=== PATIENT | male | born 1990 | race Caucasian/White ===

== ENCOUNTER 2016-04-10 10:02 | Inpatient (IN) | payer OTHER ==
[~2016-04-10] VITALS: Ht 167.6 cm; Wt 63.5 kg
[~2016-04-10 10:02] MED LIST: AMOXIL500 MG PO; BACTRIM DS 8001 TAB PO; CLONAZEPAM1 M2 PO; HUMALOG MI100 UNIT/3 SC; HYDROXYZINE50 MG PO; LEVEMIR 10100 UNITS/ SC; LEVEMIR100 UNIT/1 SC; NOVOLOG100 U/ML SC; NOVOLOG100 UNIT/2 SC; PERCOCET 325 MG1 TA2 PO; PERCOCET 5-3251 EACH PO; PRILOSEC40 M1 PO; PROMETHAZINE HC25 M3 PO; ZOFRAN ODT4 M1 SL; ZOFRAN ODT4 MG PO; ZOFRAN4 M2 PO; ZOFRAN4 M2 SL
[2016-04-10 10:35] LABS: ABSOLUTE EOSINOPHIL COUNT 0 /CUMM (0.0-0.7); ABSOLUTE GRANULOCYTE CT 25.1 /CUMM (1.4-6.5); EOSINOPHIL % 0 % (0-5); HEMATOCRIT 51.5 % (42-52); MEAN CORPUSCULAR HGB 30.7 PG (27.0-31.0)
[2016-04-10 10:37] LABS: ABSOLUTE BASOPHIL COUNT 0.3 /CUMM (0.0-0.2); ABSOLUTE LYMPH COUNT 2.3 /CUMM (1.2-3.4); ABSOLUTE MONOCYTE COUNT 2.2 /CUMM (0.10-0.60); BASOPHIL % 0.9 % (0.0-2.0); MEAN CORPUSCULAR HGB CONC 33.5 G/DL (33.0-37.0); MEAN CORPUSCULAR VOLUME 91.7 FL (80.0-94.0); MEAN PLATELET VOLUME 9.8 FL (7.4-10.4); PLATELET COUNT 349 /CUMM (130-400); RED BLOOD CELL CT 5.61 /CUMM (4.70-6.10); WHITE BLOOD CELL COUNT 29.9 /CUMM (4.8-10.8)
--- NOTE | 2016-04-10 10:52 | NUR ---
PT BIBA FROM HOME WITH HIGH BLOOD SUGAR. PT HAD BLOOD SUGAR OF >500 FOR MEDIC, BLOOD SUGAR IN ER IS CURRENTLY 412 UPON ARRIVAL. PT NOTED TO BE ALERT AND ORIENTED. DENIES ANY CP. NOTED TO HAVE TACHYPNEIC BREATHING PATTER, LUNG SOUNDS APPEAR CLEAR. PLACED ON 2L O2 VIA NC FOR COMFORT. NOTED TO BE DRY HEAVING UPON ARRIVAL TO ROOM, PALE IN COLOR, SKIN COOL TO TOUCH. DR HANSON IN ROOM TO EVAL. PT ASKING TO DRINK WATER, ADVISED HE CAN HAVE ICE CHIPS/MOUTH SWABS. IV PLACED TO RT FOREARM. NS INFUSING, MEDICATED WITH ZOFRAN AND IV INSULIN (SEE MAR). PT CONTINUES TO ASK TO DRINK WATER, INFORMED HE MAY HAVE THE ICE CHIPS AT THIS TIME PER MD ORDERS.
--- NOTE | 2016-04-10 10:57 | NUR ---
PER LAB BOTH SST'S HEMOLYZED - REQUESTED FOR LAB TO COME DRAW PT ER STAFF HAS MADE MULITPLE ATTEMPTS ALREADY.
--- NOTE | 2016-04-10 11:00 | NUR ---
PT RIPPED OF NASAL CANNULA, STATED "ITS NOT DOING ANYTHING FOR ME, ITS MAKING ME WORSE." INSTRUCTED ON USE FOR THE OXYGEN, PT REFUSING IT AT THIS TIME.
--- NOTE | 2016-04-10 11:03 | NUR ---
PTS MOTHER CALLING STATING THAT HER SON CALLED HER STATING THAT WE ARE REFUSING WATER TO HIM. THIS RN SPOKE TO MOM ON PHONE, INFORMED HER THAT PER THE MD HE MAY HAVE ICE CHIPS AND MOUTH SWABS AT THIS TIME. MOM STATES SHE WILL BE ON HER WAY SOON.
--- NOTE | 2016-04-10 11:05 | NUR ---
LAB CALLED BECAUSE 2 SST HEMOLYZED, THIS MST REQUESTING FOR LAB TO COME DRAW PATIENT FOR NEW SPECIMEN.
--- NOTE | 2016-04-10 11:10 | NUR ---
LAB AT BEDSIDE.
--- NOTE | 2016-04-10 11:30 | ED GENERAL ADULT ---
History of Present Illness General Chief Complaint: General Adult Stated Complaint: BLOOD SUGAR "HIGH" Source: patient, old records, EMS Exam Limitations: clinical condition Vital Signs & Intake/Output Vital Signs & Intake/Output Vital Signs Date Time Temp Pulse Resp B/P Pulse O2 O2 Flow FiO2 Ox Delivery Rate 04/10 1302 97.0 114 24 141/79 100 Room Air 04/10 1230 100 Room Air Room Air 04/10 1210 96.8 142 36 159/78 100 Room Air 04/10 1053 100 Nasal 2.0L Cannula 04/10 1042 136 32 164/81 100 Nasal 2.0L Cannula 04/10 1007 96.7 140 20 161/106 100 Room Air Allergies Coded Allergies: dog dander (HIVES 09/16/15) Reconcile Medications Insulin NPL/Insulin Lispro (Humalog Mix 75-25 Kwikpen) 100 UNIT/ML (75-25) INSULN.PEN 30 U SC BID DIABETES (Reported) before breakfast and before dinner Methadone Hydrochloride (Methadone HCl) 10 MG TABLET 4 TAB PO TIDPRN SUBSTANCE ABUSE HX (Reported) Triage Note: PT BIBA FROM HOME WITH HIGH BLOOD SUGAR. PT HAD BLOOD SUGAR OF >500 FOR MEDIC, BLOOD SUGAR IN ER IS CURRENTLY 412 UPON ARRIVAL. PT NOTED TO BE ALERT AND ORIENTED. DENIES ANY CP. NOTED TO HAVE TACHYPNEIC BREATHING PATTER, LUNG SOUNDS APPEAR CLEAR. PLACED ON 2L O2 VIA NC FOR COMFORT. NOTED TO BE DRY HEAVING UPON ARRIVAL TO ROOM, PALE IN COLOR, SKIN COOL TO TOUCH. DR HANSON IN ROOM TO [facility]. PT ASKING TO DRINK WATER, ADVISED HE CAN HAVE ICE CHIPS/MOUTH SWABS. IV PLACED TO RT FOREARM. NS INFUSING, MEDICATED WITH ZOFRAN AND IV INSULIN (SEE MAR). PT CONTINUES TO ASK TO DRINK WATER, INFORMED HE MAY HAVE THE ICE CHIPS AT THIS TIME PER MD ORDERS. Triage Nurses Notes Reviewed? yes Onset: Just prior to arrival Duration: hour(s):, constant, continues in ED Timing: recent history Injury Environment: home Severity: severe No Modifying Factors: none Associated Symptoms: nausea vomiting HPI: Several hours prior to admission patient had elevated blood sugar readings followed with nausea vomiting and rapid breathing confusion. He denies fever chills chest pain cough diarrhea abdominal pain dysuria rash bleeding. Past History Travel History Traveled to [place] past 21 day No Medical History Any Pertinent Medical History? see below for history Neurological: NONE EENT: NONE Cardiovascular: Heart murmur Gastrointestinal: alcoholic gastritis Hepatic: NONE Renal: NONE Musculoskeletal: NONE Psychiatric: anxiety, depression Endocrine: Diabetes type 1 PANCREATITIS Blood Disorders: NONE Cancer(s): NONE SPARE PERSON/Reproductive: NONE History of MRSA: No History of VRE: No History of CDIFF: No Surgical History Surgical History: tonsillectomy Psychosocial History Who do you live with Patient/Self Services at Home NONE What is your primary language Hebrew Tobacco Use: Never used Family History Family History, If Any: grandfather FH: diabetes mellitus MOTHER (hx GERD). Age 45. Thyroiditis FATHER (medical hx unknown - not seen x years.). Age 48. Hx Contributory? No Review of Systems Review of Systems Constitutional: Reports: see HPI, malaise, weakness. EENTM: Reports: no symptoms. Respiratory: Reports: see HPI, short of breath. Cardiovascular: Reports: no symptoms. GI: Reports: see HPI, nausea, vomiting. Genitourinary: Reports: no symptoms. Musculoskeletal: Reports: no symptoms. Skin: Reports: no symptoms. Neurological/Psychological: Reports: see HPI, anxiety, confusion. Hematologic/Endocrine: Reports: no symptoms. Immunologic/Allergic: Reports: no symptoms. All Other Systems: Reviewed and Negative Physical Exam Physical Exam General Appearance: well developed/nourished, alert, awake, anxious, severe distress, thin Head: atraumatic, normal appearance Eyes: Bilateral: normal appearance, PERRL, EOMI. Ears, Nose, Throat: normal pharynx, normal ENT inspection, dry mucous membranes Neck: normal inspection, supple, full range of motion, no midline tenderness Respiratory: normal breath sounds, chest non-tender, no respiratory distress, quiet respiration, lungs clear Cardiovascular: regular rate/rhythm, normal peripheral pulses, tachycardia, norml femoral pulses equa Peripheral Pulses: 4+ carotid (R), 4+ carotid (L) Gastrointestinal: normal bowel sounds, soft, non-tender, no organomegaly Back: normal inspection, normal range of motion, no vertebral tenderness Extremities: normal inspection, normal capillary refill, normal range of motion, no edema Neurologic/Psych: no motor/sensory deficits, awake, alert, oriented x 3, normal 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 Skin: intact, normal color, warm/dry Lymphatic: no anterior cervical lauren Core Measures ACS in differential dx? No CVA/TIA Diagnosis: No Severe Sepsis Present: No Septic Shock Present: No Progress Differential Diagnoses I considered the following diagnoses in my evaluation of the patient: DKA pneumonia dehydration hyperosmolar state Plan of Care: Orders Procedure Date/time Status Consistent Carbohydrate 3 04/10 D Active LACTIC ACID 04/10 1400 Active BASIC ELECTROLYTES PLUS BUN&CR 04/10 1400 Active Pathway - chart 04/10 1258 Active Pathway - chart 04/10 1247 Active House Staff 04/10 1247 Active Patient Data 04/10 1247 Active Code Status 04/10 1247 Active URINE DRUGS OF ABUSE 04/10 1214 Complete EKG 04/10 1214 Active Add-on Test (ER Only) 04/10 1157 Active Weight 04/10 1155 Active TROPONIN LEVEL 04/10 1155 Complete LACTIC ACID 04/10 1155 Complete Patient Data 04/10 1114 Active Admit to inpatient 04/10 1107 Active Intake & Output 04/10 1043 Active MIXED VENOUS BLOOD GAS (GEN) 04/10 1010 Complete URINALYSIS 04/10 1010 Complete SERUM OSMOLALITY 04/10 1010 Complete MAGNESIUM 04/10 1010 Complete LIPASE 04/10 1010 Complete COMPREHENSIVE METABOLIC PANEL 04/10 1010 Complete CBC WITHOUT DIFFERENTIAL 04/10 1010 Complete ACETONE 04/10 1010 Complete VTE Mechanical Prophylaxis 04/10 UNK Active FingerStick- Glucose 04/[address] ABD & PELVIS W IV CONTRAST 04/10 UNK Active Current Medications Sig/Jenni Start time Last Medication Dose Stop Time Status Admin Sodium Chloride 1,000 ML Q2H 04/10 1500 AC (Half Normal Saline) 04/10 1859 Sodium Bicarbonate 150 MEQ Q8H 04/10 1345 AC (Sodium Bicarbonate 8.4%) Potassium Chloride 20 MEQ Dextrose/Water 1,000 ML (D5W 1000) Morphine Sulfate 1 MG Q6P PRN 04/10 1330 AC (Morphine) Acetaminophen 650 MG Q6P PRN 04/10 1300 AC (Tylenol) Acetaminophen 1,000 MG Q6P PRN 04/10 1300 AC (Ofirmev) Methadone HCl 40 MG DAILY PRN 04/10 1300 AC (Dolophine) Laboratory Tests 04/10/16 1230: Urine Opiates Screen < 100.00, Methadone Screen > 735 H, Barbiturate Screen < 60, Ur Phencyclidine Scrn < 6.00, Amphetamines Screen < 100, U Benzodiazepines Scrn < 85, Urine Cocaine Screen > 1000 H, Urine Cannabis Screen 49.00, Urinalysis MOD H, Urine Color STRAW, Urine Clarity HAZY H, Urine pH 6.0, Ur Specific Hope >= 1.030, Urine Protein 100 H, Urine Ketones >=80, Urine Nitrite NEG, Urine Bilirubin NEG, Urine Urobilinogen 0.2, Ur Leukocyte Esterase NEG, Ur Microscopic SEDIMENT EXAMINED, Urine RBC 1-3, Urine WBC 1-3 H, Ur Epithelial Cells RARE, Hyaline Casts RARE H, Granular Casts 3-5 H, Urine Mucus RARE, Urine Hemoglobin SMALL H, Urine Glucose 500 H 04/10/16 1155: Anion Gap 29.87235 H, Estimated GFR > 60, BUN/Creatinine Ratio 22.5, Glucose 432 H, Serum Osmolality 330 H, Lactic Acid 4.8 H, Calcium 9.2, Magnesium 2.0, Total Bilirubin 0.6, AST 20, ALT 24, Alkaline Phosphatase 152 H, Troponin I < 0.01, Total Protein 7.5, Albumin 4.4, Globulin 3.1, Albumin/Globulin Ratio 1.4, Lipase 210, Acetone Level POSITIVE AT 1:32 DIL 04/10/16 1030: Bicarbonate Actual 5 L, Mixed VBG pH 6.89 L, Mixed VBG pCO2 25 L, Mixed VBG O2 Saturation 38, P-50 (Temp Corrected) YES, Carboxyhemoglobin 0.9 L, O2 Concentration % 2L, Temperature 96.7 L, O2 Delivery Method NC, Phlebotomy Draw Site RT.FOREARM 04/10/16 1025: CBC w Diff MAN DIFF ORDERED, RBC 5.61, MCV 91.7, MCH 30.7, RDW 13.0, MPV 9.8, Gran % 84.0 H, Lymphocytes % 7.8 L, Monocytes % 7.3, Eosinophils % 0, Basophils % 0.9, Absolute Granulocytes 25.1 H, Segmented Neutrophils 77 H, Band Neutrophils 7 H, Absolute Lymphocytes 2.3, Lymphocytes 15 L, Monocytes 1 L, Absolute Monocytes 2.2 H, Absolute Eosinophils 0, Absolute Basophils 0.3, Platelet Estimate VERIFIED BY SMEAR, Normocytic RBCs VERIFIED, Normochromic RBCs VERIFIED, PUBS MCHC 33.5 Diagnostic Imaging: Viewed by Me: Radiology Read. Discussed w/RAD: Radiology Read. Radiology Impression: no acute abnormality Initial ED EKG: normal axis, normal intervals, normal p-waves, normal QRS complex, normal sinus rhythm, NSR, rate (sinus tachycardia) Rhythm Strip: sinus tachycardia Departure Departure Time of Disposition: 1100 Disposition: STILL A PATIENT Condition: Stable Clinical Impression Primary Impression: DKA (diabetic ketoacidoses) Qualifiers: Diabetes mellitus type: type 1 Diabetes mellitus complication detail: without coma Qualified Code: E10.10 - Type 1 diabetes mellitus with ketoacidosis without coma Secondary Impressions: Cocaine abuse Leukocytosis Qualifiers: Leukocytosis type: unspecified Qualified Code: D72.829 - Elevated white blood cell count, unspecified Referrals: RON DAWSON,GRECIA Petit (PCP/Family) Departure Forms: Customer Survey General Discharge Information Admission Note Spoke With: BLADIMIR DAWSON,LAURA i[employer] Documentation of Exam: Documentation of any treatments & extenuating circumstances including Concerns Regarding Discharge (functional status, medication knowledge or non-compliance, living conditions, etc.) that warrant an admission rather than observation: ICU monitoring frequent blood sugar checks insulin drip bicarbonate drip endocrinology evaluation medication adjustment continuing care discharge planning Critical Care Note Critical Care Note Critical Care Time: 30-74 min (45)
--- NOTE | 2016-04-10 11:36 | NUR ---
REPORT RECEIVED FROM RN TREVIN REQUESTED BICARB DRIP AND INSULIN DRIP FROM PHARMACY PT REQUESTING HIS METHADONE DOSE HE MISSED THIS MORNING, STATES HE TAKES 40 MG. SPOKE WITH JAYDA AT [facility] OUT OF [place] AT [phone]. DOSE CONFIRMED AT [address] HANSON MADE AWARE OF SAME
--- NOTE | 2016-04-10 11:47 | NUR ---
PT MEDICATED WITH SODIUM BICARB BOLUS AND METHADONE 40 MG PER ORDERS.
--- NOTE | 2016-04-10 11:56 | NUR ---
LAB AT BEDSIDE FOR REDRAW OF HEMOLYZED SPECIMENS
--- NOTE | 2016-04-10 12:08 | RADIOLOGY REPORT ---
EXAMINATION: XR PORTABLE CHEST CLINICAL INFORMATION: Diabetic ketoacidosis with nausea and vomiting. Question pneumonia. COMPARISON: Portable chest x-ray 02/16/2016. TECHNIQUE: Portable AP upright 85 degree view of the chest it is provided. FINDINGS: The inferior lateral most aspect of the left costophrenic angle and chest wall are not included. The cardiomediastinal silhouette is within normal limits. The lungs and pleural spaces appear clear. There is no evidence of pneumothorax or pulmonary edema. Included osseous structures appear largely unremarkable. A metallic BB-like foreign body overlies the right lower thorax. IMPRESSION: Unremarkable examination.
--- NOTE | 2016-04-10 12:08 | NUR ---
IV INSULIN INITIATED AT 8 UNITS PER HOUR PER VERBAL ORDERS DR HANSON. IV SODIUM BICARB GTT INITIATED AT 75 MLS/HR PER ORDERS. HOUSE STAFF AT BEDSIDE FOR EVAL.
[2016-04-10] MEDS ORDERED: METHADONE10 MG/1 M2 PO (12:09)
--- NOTE | 2016-04-10 12:33 | NUR ---
CRITICAL TEST RESULTS [id number] ASIF JUAREZ 25 M TESTS AND RESULTS: CO2 <5, LACTIC 4.8, GLUCOSE 432 Results received and read back by: HERMANN BROWN Results received date and time: 04/10/16 1234 The following provider was notified of the results, and read the results back: MD HUFFMAN [phone] Notified date and time: 04/10/16 at
--- NOTE | 2016-04-10 12:33 | History & Physical ---
HETAL DAWSON,[facility] 04/10/16 1150: General Information and HPI MD Statement: I have seen and personally examined ASIF JUAREZ and documented this H&P. The patient is a 25 year old M who presented with a patient stated chief complaint of [nausea, vomiting, abdominal pain, high blood sugar and dyspnea]. Source of Information: patient, family, old records Exam Limitations: no limitations History of Present Illness: 25/M with PMH of asthma and T1DM (multiple previous admission because of DKA) who presented to [place] [facility] ED complaining of nausea, vomiting, abdominal pain and dyspnea. Patient was diagnosed with insulin-dependent diabetes mellitus around year and half ago, patient reported that's his sugars almost always between 200-400. Patient is compliant with his insulin. His symptoms started yesterday nights and getting worse. Patient reported on nonbloody food remanent vomit episode at 3 AM. Soon after he started to feel short of breath, palpitations, chills and abdominal pain. He should also is complaining of lower extremity pain. He reported dysuria and denies any other symptoms suggestive of infection as sick contacts, eating outside, cough above baseline, recent travel, diarrhea, fever, ear pain or discharge. Patient smoke 1,5 PPD X10 years, on methadone, snores Percocet, and smoke cannabis. Patient denies using any other drugs including alcohol. His mother was at bedside and reported that her son lowest a great amount of weight within the last 6 months. Allergies/Medications Allergies: Coded Allergies: dog dander (HIVES 09/16/15) Home Med list Insulin NPL/Insulin Lispro (Humalog Mix 75-25 Kwikpen) 100 UNIT/ML (75-25) INSULN.PEN 30 U SC BID DIABETES (Reported) before breakfast and before dinner Methadone Hydrochloride (Methadone HCl) 10 MG TABLET 4 TAB PO TIDPRN SUBSTANCE ABUSE HX (Reported) Past History Travel History Traveled to [place] past 21 day No Medical History Neurological: NONE EENT: NONE Cardiovascular: Heart murmur Gastrointestinal: alcoholic gastritis Hepatic: NONE Renal: NONE Musculoskeletal: NONE Psychiatric: anxiety, depression Endocrine: Diabetes type 1 PANCREATITIS Blood Disorders: NONE Cancer(s): NONE EXAMINING OFFICER/Reproductive: NONE History of MRSA: No History of VRE: No History of CDIFF: No Surgical History Surgical History: tonsillectomy Past Family/Social History Family History Relations & Conditions if any grandfather FH: diabetes mellitus MOTHER (hx GERD). Age 45. Thyroiditis FATHER (medical hx unknown - not seen x years.). Age 48. Psychosocial History Who Do You Live With? BROTHER Services at Home: NONE Primary Language: Egyptian Living Will? no Power of Corporate Development Analyst/HCP? unknown Functional Ability ADLs Independent: dressing, eating, toileting, bathing. Ambulation: independent IADLs Independent: shopping, housework, finances, food prep, telephone, transportation , medication admin. Review of Systems Review of Systems Constitutional: Reports: chills, weakness. Denies: diaphoresis, fever. EENTM: Denies: ear discharge, ear pain. Cardiovascular: Reports: palpitations. Denies: chest pain, edema, orthopena, peripheral edema, syncope. Respiratory: Reports: short of breath. Denies: cough, hemoptysis, sputum production. GI: Reports: abdominal pain, nausea, vomiting. Denies: bloating, constipation, diarrhea, distention, melena, bloody stool. Genitourinary: Reports: dysuria. Musculoskeletal: Reports: muscle pain (lower extremity). Skin: Denies: rash. Exam & Diagnostic Data Last 24 Hrs of Vital Signs/I&O Vital Signs Date Time Temp Pulse Resp B/P Pulse O2 O2 Flow FiO2 Ox Delivery Rate 04/10 1302 97.0 114 24 141/79 100 Room Air 04/10 1230 100 Room Air Room Air 04/10 1210 96.8 142 36 159/78 100 Room Air 04/10 1053 100 Nasal 2.0L Cannula 04/10 1042 136 32 164/81 100 Nasal 2.0L Cannula 04/10 1007 96.7 140 20 161/106 100 Room Air Intake & Output 04/10 1600 04/10 0800 08 0000 Intake Total 2000 Output Total 1000 Balance 1000 Intake, IV 2000 Output, Urine 1000 Patient 86.183 kg Weight Physical Exam General Appearance Alert, Oriented X3, Cooperative, Severe Distress Skin No Rashes HEENT Atraumatic, PERRLA, EOMI, mildly dehydrated Neck Supple, No JVD Cardiovascular Regular Rate, Normal S1, Normal S2, No Murmurs, tachycardia Lungs Clear to Auscultation, Normal Air Movement Abdomen Soft, No Tenderness Neurological Normal Speech Extremities No Clubbing, No Cyanosis, No Edema Last 24 Hrs of Labs/Arturo: Laboratory Tests 04/10/16 1450: Anion Gap 21 H, Estimated GFR > 60, BUN/Creatinine Ratio 23.3, Lactic Acid 0.8 04/10/16 1433: pH 7.18 *L, pCO2 16 L, pO2 114 H, HCO3 6 L, ABG O2 Sat (Measured) 97.0, Carboxyhemoglobin 0.5 L, O2 Concentration % .21, Temperature 97.0, O2 Delivery Method RA, Phlebotomy Draw Site LEFT RADIAL 04/10/16 1230: Urine Opiates Screen < 100.00, Methadone Screen > 735 H, Barbiturate Screen < 60, Ur Phencyclidine Scrn < 6.00, Amphetamines Screen < 100, U Benzodiazepines Scrn < 85, Urine Cocaine Screen > 1000 H, Urine Cannabis Screen 49.00, Urinalysis MOD H, Urine Color STRAW, Urine Clarity HAZY H, Urine pH 6.0, Ur Specific [place] >= 1.030, Urine Protein 100 H, Urine Ketones >=80, Urine Nitrite NEG, Urine Bilirubin NEG, Urine Urobilinogen 0.2, Ur Leukocyte Esterase NEG, Ur Microscopic SEDIMENT EXAMINED, Urine RBC 1-3, Urine WBC 1-3 H, Ur Epithelial Cells RARE, Hyaline Casts RARE H, Granular Casts 3-5 H, Urine Mucus RARE, Urine Hemoglobin SMALL H, Urine Glucose 500 H 04/10/16 1155: Anion Gap 29.48992 H, Estimated GFR > 60, BUN/Creatinine Ratio 22.5, Glucose 432 H, Serum Osmolality 330 H, Lactic Acid 4.8 H, Calcium 9.2, Magnesium 2.0, Total Bilirubin 0.6, AST 20, ALT 24, Alkaline Phosphatase 152 H, Troponin I < 0.01, Total Protein 7.5, Albumin 4.4, Globulin 3.1, Albumin/Globulin Ratio 1.4, Lipase 210, Serum Alcohol < 10.0, Acetone Level POSITIVE AT 1:32 DIL 04/10/16 1030: Bicarbonate Actual 5 L, Mixed VBG pH 6.89 L, Mixed VBG pCO2 25 L, Mixed VBG O2 Saturation 38, P-50 (Temp Corrected) YES, Carboxyhemoglobin 0.9 L, O2 Concentration % 2L, Temperature 96.7 L, O2 Delivery Method NC, Phlebotomy Draw Site RT.FOREARM 04/10/16 1025: CBC w Diff MAN DIFF ORDERED, RBC 5.61, MCV 91.7, MCH 30.7, RDW 13.0, MPV 9.8, Gran % 84.0 H, Lymphocytes % 7.8 L, Monocytes % 7.3, Eosinophils % 0, Basophils % 0.9, Absolute Granulocytes 25.1 H, Segmented Neutrophils 77 H, Band Neutrophils 7 H, Absolute Lymphocytes 2.3, Lymphocytes 15 L, Monocytes 1 L, Absolute Monocytes 2.2 H, Absolute Eosinophils 0, Absolute Basophils 0.3, Platelet Estimate VERIFIED BY SMEAR, Normocytic RBCs VERIFIED, Normochromic RBCs VERIFIED, PUBS MCHC 33.5 Microbiology 04/10 1543 GI: Surveillance Culture - COLB 04/10 1542 UPPER RESP: Surveillance Culture - COLB Assessment/Plan Assessment: 25/M who presents multiple times because of DKA. He has a multiple drug abuse. Based on his history his sugars always high(most likely noncompliant with insulin) who presented with symptom & sign that's strongly suggestive of DKA. Assessment and plan 1. DKA He presented with compensated anion gap metabolic acidosis, bicarbonate was 5. Patient looked dehydrated. Potassium was 5. Urine Ketone and acetone was positive. * Patient will be started on insulin drip at rate of 8 units per hour * We will slow down insulin and add dextrose to his fluid and glucose level is 200 * We will replete potassium avoid hypokalemia * bicarbonate drip * Finger check every hour * The repeat labs every 4 * We will trend down lactic acid 2. Substance abuse * Will consider Psych consult 3.Pneumomediastinum * Swallowing eval to rule out esophageal rupture * CT chest * We will consult surgery. * We'll consult GI Dr. Banegas. * Patient will be nothing by mouth. Nothing by mouth DVT PPX Heparin Full code As Ranked By This Provider Problem List: 1. DKA (diabetic ketoacidoses) Qualifiers Diabetes mellitus type: type 1 Diabetes mellitus complication detail: without coma Qualified Code: E10.10 - Type 1 diabetes mellitus with ketoacidosis without coma 2. Cocaine abuse 3. Abdominal pain 4. Vomiting Core Measures/Miscellaneous Acute Coronary Syndrome ACS Diagnosis: No Cerebrovascular Accident CVA/TIA Diagnosis: No Congestive Heart Failure CHF Diagnosis: No Venous Thromboembolism VTE Risk Factors: Acute medical illness, Smoking VTE Prophylaxis Ordered Inpt: Mech & Pharm No Mech VTE prophylaxis d/t: No contraindications No VTE Pharm Prophylaxis d/t: No contraindications VTE Diagnosis: No VTE Type: NONE VTE Confirmed by (Test): NONE Severe Sepsis Severe Sepsis Present: No Septic Shock Septic Shock Present: No Miscellaneous Documentation Attending Case Discussed With: LAURA GARRISON MD Primary Care Physician: GRECIA VELASQUEZ MD Patient sees these Specialists GRECIA VELASQUEZ MD Level of Patient Care: Critical Care ([facility]) ANNALISA MORALES 04/10/16 1233: Resident Review Statement Resident Statement: examined this patient, discussed with environmental intern, agreed with environmental intern, discussed with family Other Findings: Mr. Juarez is a 25 year old gentleman with significant past medical history of asthma and diabetes, diagnosed 1.5 years ago, with multiple admissions for DKA in the past. He presents to the hospital with complaints of nausea, vomiting, abdominal pain and difficulty breathing. Per EMS, his fingerstick sugar was greater than 500. In emergency department is 412 upon arrival. His venous blood gas showed a pH of 6.8, PCO2 25, bicarbonate 5. BEP showed sodium 140, potassium 5.0, chloride 106, bicarbonate less than 5, anion gap 29, serum osmolality 330 with a lactic acid of 4.8. Acetone was positive at 1:32. Urinalysis showed protein, 1-3 white cells, granular casts with small amount of hemoglobin and 500 mg/dL of urine glucose. U tox was positive for methadone and cocaine. The patient was started on insulin drip as well as a bicarbonate drip in the emergency department and given 2L of NS. Repeat ABG showed a pH of 7.18, PCO2 16, bicarbonate 6 with a PaO2 of 114 on room air. Chest x-ray was negative. CBC showed a white count of 29.9 with 77 segmented neutrophils and 7 bands. Hemoglobin 17.2/hematocrit 31.5. He denies any chest pain, dyspnea, palpitations, lightheadedness, dizziness, diplopia or tinnitus. He also denies any fevers, chills, and diaphoresis. He denies any recent travel or sick contacts. Physical exam: HEENT -ve, lungs clear BL, heart exam was positive for tachycardia, no MRG, no chest tenderness, abdominal exam notable for some tenderness to deep palpation, benign extremity exam. Problem List/Assessment and Plan Ketoacidosis * Possibly due to infection [abdomen]. We will treat the patient in the ICU, continue insulin drip, as well as the fluids with HCO3. * Given his potassium of 5.0, we will also add potassium 20mEq to the fluids. * Corrected Na 146 and as he is euvolemic, we will start half normal saline at 500 mL per hour x2L. * We will check labs every 2-4 hours, 4 PM and 7 PM on resolution of his gap and once his DKA has resolved and the patient is able to eat, we will dose NovoLog SC with a 1-2 hour IV insulin overlap. * Once glucose reaches 200 mg/dL, we will convert half-normal NS with bicarb to D5-w bicarb and K. * q1 fingersticks * Endo consults placed and appreciated. * IV contrast CT of the abd/pelvis to evaluate for source of infection - the patient has previously been admitted with c.diff colitis. We will also send c.diff culture and norovirus PCR. Continue the patients methadone 40mg daily for now FULL code CC3 when he can eat ALPS for dvt ppx pain pathway BLADIMIR DAWSON,[facility] 04/10/16 1833: Attending MD Review Statement Attending Statement Attending MD Statement: examined this patient, discuss w/resident/PA/GORE STITCHER, agreed w/resident/PA/GORE STITCHER, discussed with family, reviewed EMR data (avail), discussed with nursing, discussed with case mgmt, reviewed images, amended to note Attending Assessment/Plan: Seen and examined PT with dka with polysub abuse - with Severe DKA SIg pneumomediastinum - pt has been vomiting upon admission with retching, now rule out esophageal rupture. Deydration Cocaine positive, methadone positive REC IVF per ENdo IV insulin per endo Keep npo Start IV unasyn [address] Chest with to help eval esophagus etc IV ppi 40 bid First dose now Hold gastrograffin study TRANSFER to [facility] [place] [facility] accepting jaxson
--- NOTE | 2016-04-10 12:35 | NUR ---
URINE TRIO SENT
--- NOTE | 2016-04-10 13:02 | NUR ---
1/2 N/S INFUSION INITIATED AT 500 ML/HR PER ORDERS
--- NOTE | 2016-04-10 13:14 | NUR ---
PT HAS BED ASSIGNMENT 102. RN NOTIFIED.
--- NOTE | 2016-04-10 13:18 | NUR ---
INSULIN DRIP DECREASED TO 6 UNITS/HR PER MD FANG.
--- NOTE | 2016-04-10 13:21 | NUR ---
REPORT TO [facility] CLEMENTS
--- NOTE | 2016-04-10 14:10 | NUR ---
PT TRANSPORTED TO CT SCAN AND THEN UP TO ICU. PT IV IN L HAND BECAME DISLODGED DURING TRANSFER FROM ER STRETCHER TO CT SCAN TABLE. ATTEMPT X [address] SCAN TO RE-START UNSUCCESSFUL. INSULIN DRIP HELD APPROXIMATELY 20 MINUTES DURING THIS TIME AND RESTARTED IN L ARM IV AFTER CT SCAN WAS COMPLETED. ELECTRICAL AND RADIO MECHANIC STARR AWARE OF SAME.
[2016-04-10 15:00] VITALS: BP 130/74
--- NOTE | 2016-04-10 15:12 | CT SCAN REPORT ---
EXAMINATION: CT ABDOMEN AND PELVIS WITH CONTRAST CLINICAL INFORMATION: Abdominal pain and diarrhea. COMPARISON: 02/17/2016. TECHNIQUE: Multidetector volumetric imaging was performed of the abdomen and pelvis before and after the IV administration of 94 mL of Optiray 320 intravenous contrast. Sagittal and coronal reformatted images were obtained on the technologist's workstation. DLP: 323.64 mGy-cm FINDINGS: LUNG BASES: Pneumomediastinum is present with air extending around the IVC, abdominal aorta and pericardium. A hiatal hernia is present with a fluid-filled esophagus. LIVER, GALLBLADDER, AND BILIARY TREE: The liver is normal in size, shape, and attenuation. No focal hepatic lesion or biliary ductal dilatation is present. The gallbladder is unremarkable with no evidence of radiopaque gallstones, gallbladder wall thickening, or obvious pericholecystic inflammatory changes. PANCREAS: Unremarkable. SPLEEN: Unremarkable. ADRENAL GLANDS: Unremarkable. KIDNEYS AND URETERS: The kidneys are normal in size, shape, and attenuation. No hydronephrosis, hydroureter, or calculi seen. No perinephric stranding. BLADDER: Distended. GASTROINTESTINAL TRACT: The small and large bowel are unremarkable. The appendix is unremarkable. The stomach is distended with fluid and the esophagus is filled with fluid. Gas and stool is present throughout the colon. There is no evidence of bowel wall thickening to suggest colitis. ABDOMINAL WALL: No significant hernia is appreciated. LYMPH NODES: Normal. VASCULAR: Unremarkable. PELVIC VISCERA: Unremarkable. OSSEOUS STRUCTURES: Unremarkable. IMPRESSION: Pneumomediastinum. This is most likely secondary to ruptured alveolus with associated retching or vomiting, or even barotrauma with an injury to the esophagus. If the patient is symptomatic, upper endoscopy may be useful. This critical result was discussed with Adarsh Sam MD at 3:08 PM on the day the exam and it was ascertained that the content and urgency of the report was understood at the time of direct communication.
--- NOTE | 2016-04-10 15:23 | NUR ---
PT TRANSFERRD FROM ER. BEDSIDE REPORT RECEIVED FROM LACING PRESSER. PT IS GROGGY, NODDING OFF, VOICE IS MUFFLED AND NOT UNDERSTANDABLE AT TIMES. HE IS EASILY IRRITATED AND HAS BEEN USING PROFANITY AT THE NURSING STAFF. DR. GARRISON IN, PTS MOTHER IN. UPDATES GIVEN BY DR. GARRISON. PT IS REQUESTING TO DRINK PITCHERS OF WATER. WAS CAUTIONED REGARDING LARGE AMOUNT OF WATER BY DR. GARRISON, WARNED OF ASPIRATION RISK DUE TO SLEEPINESS. PT DECLINES TO BE INTERVIEWED FOR ADMISSION HISTORY.
--- NOTE | 2016-04-10 16:56 | NUR ---
PT WAS INFORMED OF NECISSITY OF NPO STATUS DUE TO CT RESULTS AND PENDING GI AND SURGICAL EVALUATION. HE DECLINES TO COMPLY AND CONTINUES TO EAT ICE CHIPS. HE ALSO DECLINES TO ALLOW ANY INFORMAITION TO BE GIVEN TO HIS FAMILY.
--- NOTE | 2016-04-10 18:22 | Cons- Endocrinology ---
General Information and HPI Consulting Request Date of Consult: 04/10/16 Requested By: medical team Reason for Consult: diabetic ketoacidosis Source of Information: patient, old records Exam Limitations: poor historian History of Present Illness: This 25-year-old male with a known history of type 1 diabetes mellitus came to the emergency room because of weakness shortness of breath nausea and vomiting. His noncompliant on his diabetic regimen at home. Because he will not take insulin more than twice a day he was on 7525 NovoLog mix. The patient was found to be in ketoacidosis with an initial labs showing sugar 432 BUN 18 creatinine 0.8 CO2 less than 5 and anion gap elevated at 29. Serum acetone is +1-32. The patient has been treated with IV fluids and an insulin drip. He was also given some bicarbonate On the ET scan of the chest the patient has a pneumediastinum. Allergies/Medications Allergies: Coded Allergies: dog dander (HIVES 09/16/15) Home Med List: Insulin NPL/Insulin Lispro (Humalog Mix 75-25 Kwikpen) 100 UNIT/ML (75-25) INSULN.PEN 30 U SC BID DIABETES (Reported) before breakfast and before dinner Methadone Hydrochloride (Methadone HCl) 10 MG TABLET 4 TAB PO TIDPRN SUBSTANCE ABUSE HX (Reported) Review of Systems Review of Systems Constitutional: Denies: chills, fever. Cardiovascular: Denies: chest pain. Respiratory: Reports: short of breath. Denies: cough. GI: Denies: nausea, vomiting. Musculoskeletal: Denies: joint swelling. Neurological/Psychological: Reports: anxiety, depressed. Past History Travel History Traveled to [place] past 21 day No Medical History Neurological: NONE EENT: NONE Cardiovascular: Heart murmur Respiratory: NONE Gastrointestinal: alcoholic gastritis Hepatic: NONE Renal: NONE Musculoskeletal: NONE Psychiatric: anxiety, depression Endocrine: Diabetes type 1 PANCREATITIS Blood Disorders: NONE Cancer(s): NONE MANAGER PULMONARY/Reproductive: NONE Surgical History Surgical History: tonsillectomy Family History Relations & Conditions If Any: grandfather FH: diabetes mellitus MOTHER (hx GERD). Age 45. Thyroiditis FATHER (medical hx unknown - not seen x years.). Age 48. Psychosocial History Where Do You Live? Home Who Do You Live With? BROTHER Services at Home: NONE Primary Language: Czech Smoking Status: Current Everyday Smoker Living Will? no Power of Fire Safety Director/HCP? unknown Functional Ability ADLs Independent: dressing, eating, toileting, bathing. Ambulation: independent IADLs Independent: shopping, housework, finances, food prep, telephone, transportation , medication admin. Exam & Diagnostic Data Last 24 Hrs of Vital Signs/I&O Vital Signs Date Time Temp Pulse Resp B/P Pulse O2 O2 Flow FiO2 Ox Delivery Rate 04/10 1500 98.8 114 20 130/74 94 Room Air 02 1302 97.0 114 24 141/79 100 Room Air 02 1230 100 Room Air Room Air 04/10 1210 96.8 142 36 159/78 100 Room Air 04/10 1053 100 Nasal 2.0L Cannula 04/10 1042 136 32 164/81 100 Nasal 2.0L Cannula 04/10 1007 96.7 140 20 161/106 100 Room Air Intake & Output 04/10 1600 04/10 0800 02 0000 Intake Total 6895 Output Total 1000 Balance 5895 Intake, IV 5895 Intake, Oral 1000 Output, Urine 1000 Patient 140 lb Weight Vital Signs Date Time Temp Pulse Resp B/P Pulse O2 O2 Flow FiO2 Ox Delivery Rate 04/10 1500 98.8 114 20 130/74 94 Room Air 02 1302 97.0 114 24 141/79 100 Room Air 04/10 1230 100 Room Air Room Air 04/10 1210 96.8 142 36 159/78 100 Room Air 04/10 1053 100 Nasal 2.0L Cannula 04/10 1042 136 32 164/81 100 Nasal 2.0L Cannula 04/10 1007 96.7 140 20 161/106 100 Room Air Intake & Output 04/10 1600 08 0800 02 0000 Intake Total 6895 Output Total 1000 Balance 5895 Intake, IV 5895 Intake, Oral 1000 Output, Urine 1000 Patient 140 lb Weight Physical Exam General Appearance: no apparent distress, awake, lethargic Head: normal appearance Neck: normal inspection Respiratory: normal breath sounds Cardiovascular: regular rate/rhythm Gastrointestinal: normal bowel sounds Extremities: normal inspection Skin: intact Labs/Arturo Results: Laboratory Tests 04/10 04/10 04/10 1450 1433 1230 Blood Gas pH (7.35 - 7.45 PH) 7.18 *L pCO2 (35 - 45 TORR) 16 L pO2 (80 - 100 TORR) 114 H HCO3 (21 - 28 MEQ/L) 6 L ABG O2 Sat (Measured) (>96.0 %) 97.0 Carboxyhemoglobin (1.5 - 5.0 %) 0.5 L O2 Concentration % .21 Temperature (97.0 - 100.0 FARH) 97.0 O2 Delivery Method RA Chemistry Sodium (137 - 145 mmol/L) 135 L Potassium (3.5 - 5.1 mmol/L) 4.4 Chloride (98 - 107 mmol/L) 107 Carbon Dioxide (22 - 30 mmol/L) 7 *L Anion Gap (5 - 16) 21 H BUN (9 - 20 mg/dL) 14 Creatinine (0.7 - 1.2 mg/dL) 0.6 L Estimated GFR (>60 ml/min) > 60 BUN/Creatinine Ratio (7 - 25 %) 23.3 Lactic Acid (0.7 - 2.1 mmol/L) 0.8 Miscellaneous Phlebotomy Draw Site LEFT RADIAL Toxicology Urine Opiates Screen (>2000 NG/ML) < 100.00 Methadone Screen (>300 NG/ML) > 735 H Barbiturate Screen (>200 NG/ML) < 60 Ur Phencyclidine Scrn (>25 NG/ML) < 6.00 Amphetamines Screen (>1000 NG/ML) < 100 U Benzodiazepines Scrn (>200 NG/ML) < 85 Urine Cocaine Screen (>300 NG/ML) > 1000 H Urine Cannabis Screen (>50 NG/ML) 49.00 Urines Urinalysis MOD H Urine Color (YEL,AMB,STR) STRAW Urine Clarity (CLEAR) HAZY H Urine pH (5.0 - 8.0) 6.0 Ur Specific [place] (1.001 - 1.035) >= 1.030 Urine Protein (NEG,<30 MG/DL) 100 H Urine Ketones (NEG) >=80 Urine Nitrite (NEG) NEG Urine Bilirubin (NEG) NEG Urine Urobilinogen (0.1 - 1.0 EU/dl) 0.2 Ur Leukocyte Esterase (NEG) NEG Ur Microscopic SEDIMENT EXAMINED Urine RBC (0 - 5 /HPF) 1-3 Urine WBC (0 - 2 /HPF) 1-3 H Ur Epithelial Cells (NONE,FEW) RARE Hyaline Casts (0/LPF) RARE H Granular Casts (NONE /LPF) 3-5 H Urine Mucus (FEW,NONE) RARE Urine Hemoglobin (NEG) SMALL H Urine Glucose (N MG/DL) 500 H 04/10 04/10 1155 1030 Blood Gas Bicarbonate Actual (22 - 26 MEQ/L) 5 L Mixed VBG pH (7.31 - 7.41 PH) 6.89 L Mixed VBG pCO2 (41 - 51 TORR) 25 L Mixed VBG O2 Saturation (35 - 45 TORR) 38 P-50 (Temp Corrected) YES Carboxyhemoglobin (1.5 - 5.0 %) 0.9 L O2 Concentration % 2L Temperature (97.0 - 100.0 FARH) 96.7 L O2 Delivery Method NC Chemistry Sodium (137 - 145 mmol/L) 140 Potassium (3.5 - 5.1 mmol/L) 5.0 Chloride (98 - 107 mmol/L) 106 Carbon Dioxide (22 - 30 mmol/L) < 5 *L Anion Gap (5 - 16) 29.05724 H BUN (9 - 20 mg/dL) 18 Creatinine (0.7 - 1.2 mg/dL) 0.8 Estimated GFR (>60 ml/min) > 60 BUN/Creatinine Ratio (7 - 25 %) 22.5 Glucose (65 - 99 mg/dL) 432 H Serum Osmolality (285 - 295 MOSM/KG) 330 H Lactic Acid (0.7 - 2.1 mmol/L) 4.8 H Calcium (8.4 - 10.2 mg/dL) 9.2 Magnesium (1.6 - 2.3 mg/dL) 2.0 Total Bilirubin (0.2 - 1.3 mg/dL) 0.6 AST (17 - 59 U/L) 20 ALT (21 - 72 U/L) 24 Alkaline Phosphatase (< 127 U/L) 152 H Troponin I (<0.11 ng/ml) < 0.01 Total Protein (6.3 - 8.2 g/dL) 7.5 Albumin (3.5 - 5.0 g/dL) 4.4 Globulin (1.9 - 4.2 gm/dL) 3.1 Albumin/Globulin Ratio (1.1 - 2.2 %) 1.4 Lipase (23 - 300 U/L) 210 Miscellaneous Phlebotomy Draw Site RT.FOREARM Toxicology Serum Alcohol (<10 MG/DL) < 10.0 Acetone Level (NEGATIVE) POSITIVE AT 1:32 DIL 04/10 1025 Hematology CBC w Diff MAN DIFF ORDERED WBC (4.8 - 10.8 /CUMM) 29.9 H RBC (4.70 - 6.10 /CUMM) 5.61 Hgb (14.0 - 18.0 G/DL) 17.2 Hct (42 - 52 %) 51.5 MCV (80.0 - 94.0 FL) 91.7 MCH (27.0 - 31.0 PG) 30.7 RDW (11.5 - 14.5 %) 13.0 Plt Count (130 - 400 /CUMM) 349 MPV (7.4 - 10.4 FL) 9.8 Gran % (42.2 - 75.2 %) 84.0 H Lymphocytes % (20.5 - 51.1 %) 7.8 L Monocytes % (1.7 - 9.3 %) 7.3 Eosinophils % (0 - 5 %) 0 Basophils % (0.0 - 2.0 %) 0.9 Absolute Granulocytes (1.4 - 6.5 /CUMM) 25.1 H Segmented Neutrophils (42.2 - 75.2 %) 77 H Band Neutrophils (0.0 - 5.0 %) 7 H Absolute Lymphocytes (1.2 - 3.4 /CUMM) 2.3 Lymphocytes (20.5 - 51.1 %) 15 L Monocytes (1.7 - 9.3 %) 1 L Absolute Monocytes (0.10 - 0.60 /CUMM) 2.2 H Absolute Eosinophils (0.0 - 0.7 /CUMM) 0 Absolute Basophils (0.0 - 0.2 /CUMM) 0.3 Platelet Estimate (ADEQUATE) VERIFIED BY SMEAR Normocytic RBCs VERIFIED Normochromic RBCs VERIFIED PUBS MCHC (33.0 - 37.0 G/DL) 33.5 Assessment/Plan Assessment/Plan Asians ketoacidosis is improving clinically. His labs are also improved when last checked at 2:50 PM. At that time his bicarbonate was up to 7 and anion gap is 21 Suggest at this time the patient does not need bicarbonate in his IV. We should change his IV fluids to D5 half-normal saline with 20 mEq of KCl at 150 mL an hour. Maintain the insulin drip at 4 units per hour. Attempt to keep his blood sugar at about 180 mg percent. Repeat the labs within the next hour. The patient's bicarbonate is above 18 and his anion gap is closed we can consider switching to subcutaneous insulin. The patient's pneumomediastinum is either due to esophageal rupture are a ruptured alveolus. Dr. Duke is evaluating him in the patient may need to be transferred to [place]. Consult Acknowledgment - Thank you for your consult request.
--- NOTE | 2016-04-10 19:03 | Discharge Summary ---
See Addendum Visit Information Visit Dates Admission Date: 04/10/16 Discharge Date: 04/10/2016 Hospital Course Course Attending Physician: BLADIMIR DAWSON,LAURA Nieto Primary Care Physician: RON DAWSON,RGECIA Petit Other Care Providers: Ines Herrera MD Consulting Request: Consulting Specialty: Endocrinology Consulting Physician: Ines Herrera MD Reason for Consult: [facility] Hospital Course: This is a 25 years old man with a history of poorly controlled type 1 diabetes mellitus who has had several admissions with diabetic ketoacidosis and presented on April 10 at [facility] with nausea vomiting abdominal pain during which the patient was found to be in ketoacidosis with high blood sugar and also elevated white blood cell counts. Patient volunteered history of shortness of breath palpitation chills and abdominal pain. Through the initial analysis imaging of the chest showed evidence of pneumomediastinum in this patient with history of heaving and vomiting and we had a concern for possible ruptured esophagus. Patient is being transferred to [facility] for management of possible esophageal rupture. While the patient was in the [facility] he was managed in the intensive care unit and we managed him for the following conditions. Diabetic acidosis This is a patient with known type 1 diabetes not adherent to insulin regimen. On presentation the patient was acidotic with pH of 7.18 and anion gap of 29. He was given IV insulin 10 units and then started on insulin drip at 8 units per hour per DKA protocol. Through the course of the stay for the few hours he was in [facility] the anion gap was closing and his sugar level decreased progressively from 432 on admission to around 177. Patient was seen by frame polisher Dr. Herrera and the plan is to continue with IV insulin until when the anion gap has closed and has bicarbonate of around 18. Please continue with DKA protocol. Pneumomediastinum Patient has imaging evidence of pneumomediastinum insetting of heaving and vomiting prior to presentation. Currently the patient is hemodynamically stable has no shortness of breath and has no fever. All less significant on presentation was lactic acid of 4.8 which corrected after IV fluids. We have started the patient on IV Unasyn 3 g every 6 The patient nothing by mouth and also started on IV Protonix 40 mg twice a day. We are transferring the patient to [facility] for further management of possible esophageal tear. Polysubstance abuse Patient has opiate dependence and is on methadone. However in his U tox there is significant amount of cocaine. Will benefit from psychiatric review for substance abuse. Complications: None Allergies: Coded Allergies: dog dander (HIVES 09/16/15) Significant Procedures: AbdomINAL/Pelvis/Chest CT: Pneumomediastinum. This is most likely secondary to ruptured alveolus with associated retching or vomiting, or even barotrauma with an injury to the esophagus. If the patient is symptomatic, upper endoscopy may be useful. Pertinent Lab Results: PH 7.18, anion gap 29 Urine cocaine more than 1000 Disposition Summary Disposition Principal Diagnosis: DKA Pneumomediastinum Polysubstance abuse Additional Diagnosis: Leukocytosis Discharge Disposition: other general hospital Discharge Instructions General Discharge Information Code Status: Full Code Patient's Diet: Nothing by mouth Patient's Activity: As tolerated Follow-Up Instructions/Appts: Please call and make a follow-up with her primary care physician within one week after discharge Medications at Discharge Discharge Medications: Continue taking these medications: Insulin NPL/Insulin Lispro (Humalog Mix 75-25 Kwikpen) 100 UNIT/ML (75-25) INSULN.PEN 30 Units Inject into fatty tissue TWICE DAILY Instructions: before breakfast and before dinner Comments: Last Taken: 02/18/16 Time: 12:50 PM Methadone Hydrochloride (Methadone HCl) 10 MG TABLET 4 Tablet ORAL THREE TIMES A DAY NEEDED Start taking the following new medications: Pantoprazole Sodium (Protonix) 40 MG TABLET. 40 Milligram INTRAVEN TWICE DAILY Qty = 30 No Refills Ampicillin Sodium/Sulbactam Na (Unasyn 3 Gm Vial) 3 GRAM VIAL 3,000 Milligram INTRAVEN EVERY SIX HOURS Qty = 12 No Refills Copies To: LINWOOD DAWSON,INES Petit
--- NOTE | 2016-04-10 19:30 | NUR ---
EXPLAINED AGAIN THE NEW MD ORDER TO MAINTAIN NPO STATUS. PT IS COMPLIANT AT THIS TIME. DR. GARRISON IN, FAMILY IN, PT TO BE TRANSFERRED TO [place]. NURSING SUPERVISER NOTIFIED, WAITING BED ASSIGNMENT. DR. PALUMBO ALSO IN TO SEE PATIENT, INSULIN DRIP CURRENTLY INFUSING AT 4UNITS PER HOUR.
--- NOTE | 2016-04-10 19:50 | Patient Discharge Instructions ---
Discharge Instructions General Discharge Information You were seen/treated for: Pneumomediastinum DKA Diet Continue normal diet: No Recommended Diet: npo until you f/u on [place] Acute Coronary Syndrome Inclusion Criteria At DC or during hospital stay patient has or had the following: ACS DIAGNOSIS No Discharge Core Measures Meds if any: Prescribed or Continued at Discharge Meds if any: NOT Prescribed or Continued at Discharge Congestive Heart Failure Inclusion Criteria At DC or during hospital stay patient has or had the following: CHF DIAGNOSIS No Discharge Core Measures Meds if any: Prescribed or Continued at Discharge Meds if any: NOT Prescribed or Continued at Discharge Cerebrovascular accident Inclusion Criteria At DC or during hospital stay patient has or had the following: CVA/TIA Diagnosis No Discharge Core Measures Meds if any: Prescribed or Continued at Discharge Meds if any: NOT Prescribed or Continued at Discharge Venous thromboembolism Inclusion Criteria VTE Diagnosis No VTE Type NONE VTE Confirmed by (Test) NONE Discharge Core Measures - Per Current guidelines, there needs to be overlap - treatment for the first 5 days of Warfarin therapy. - If discharged on Warfarin prior to 5 days of - overlap therapy, the patient will need to be - assessed for post discharge needs including - *Post discharge parental anticoagulation - *Warfarin and/or parental anticoagulation education - *Follow up date to check INR post discharge At least 5 days overlap therapy as Inpatient No Meds if any: Prescribed or Continued at Discharge Note: Overlap Therapy is Warfarin and Anticoagulant Meds if any: NOT Prescribed or Continued at Discharge
[2016-04-10] MEDS ORDERED: UNASYN 3 GM VIAL3 GM IV (20:08)
[2016-04-10] MEDS ORDERED: PROTONIX40 M3 IV (20:12)
--- NOTE | 2016-04-10 20:26 | NUR ---
REPORT CALLED TO [facility]. PT TRANSFERRED.
--- NOTE | 2016-04-10 20:31 | CT SCAN REPORT ---
EXAMINATION: CT CHEST WITH CONTRAST CLINICAL INFORMATION: Pneumomediastinum. Concern for esophageal perforation. COMPARISON: Chest x-ray 04/22/2016. CT scan abdomen pelvis 04/10/2016 TECHNIQUE: Multidetector volumetric CT imaging of the chest was obtained after the administration of 70 mL of Optiray 320 intravenous contrast without immediate adverse reactions. Axial MIP volume rendering provided. Sagittal and coronal reformatted images were obtained. Oral contrast administered. DLP: 177.22 mGy-cm FINDINGS: LUNGS: The lungs are clear with no evidence of inflammation or nodules. MEDIASTINUM: Pneumomediastinum. Contrast fills the esophagus with no extravasation of contrast. No thickening of the esophageal wall or inflammatory change around the esophagus. No inflammatory change of the mediastinum. No fluid collections. PLEURA: There is a tiny left-sided pneumothorax seen posteriorly axial image 304 (5). AXILLA: No lymphadenopathy. UPPER ABDOMEN: Unremarkable. OSSEOUS STRUCTURES: Unremarkable. IMPRESSION: 1. Pneumomediastinum. Tiny left sided pneumothorax. 2. No evidence of contrast extravasation, inflammation, wall thickening or other abnormality of the esophagus.
--- NOTE | 2016-04-10 20:54 | NUR ---
AMBULANCE HERE, REPORT GIVEN, PATIENT DISCHARGED AND TRANSFERRED TO [facility] BY [facility]. FAMILY WILL FOLLOW IN [facility].
== END 2016-04-10 20:40 | disposition short-term general hospital (02) | DRG 420 ==
LOC: ENRESERVDT → ENRESERVTM → ERH 10:02 → ERHI 11:07 → CRI 13:30
PROVIDERS: Emergency Medicine; ADMIT Internal Medicine Pulmonary Disease
DX: E10.10 Type 1 diabetes mellitus with ketoacidosis without coma (principal); Z79.4 Long term (current) use of insulin; J98.2 Interstitial emphysema; F11.20 Opioid dependence, uncomplicated
CPT/HCPCS: CCU; 74177; 80307; 81001; 82436; 93005; 93010; 96361; 96374; 96375; 96376; 99291; G0480; J0131; J1815; J2405; J7042; J7060

== ENCOUNTER 2016-08-02 13:21 | Inpatient (IN) | payer OTHER ==
[~2016-08-02] VITALS: Ht 182.9 cm; Wt 83.9 kg
[~2016-08-02 13:21] MED LIST changes: +METHADONE10 MG/1 M2 PO; +PROTONIX40 M3 IV; +UNASYN 3 GM VIAL3 GM IV
[2016-08-02 13:56] LABS: ABSOLUTE BASOPHIL COUNT 0 /CUMM (0.0-0.2); ABSOLUTE EOSINOPHIL COUNT 0 /CUMM (0.0-0.7); ABSOLUTE GRANULOCYTE CT 9.4 /CUMM (1.4-6.5); ABSOLUTE LYMPH COUNT 1.6 /CUMM (1.2-3.4); ABSOLUTE MONOCYTE COUNT 0.2 /CUMM (0.10-0.60); BASOPHIL % 0.4 % (0.0-2.0); EOSINOPHIL % 0.1 % (0-5); HEMATOCRIT 48.2 % (42-52); MEAN CORPUSCULAR HGB CONC 33.7 G/DL (33.0-37.0); MEAN CORPUSCULAR VOLUME 89.1 FL (80.0-94.0); MEAN PLATELET VOLUME 9.1 FL (7.4-10.4); PLATELET COUNT 299 /CUMM (130-400); RBC DISTRIBUTION WIDTH 12.6 % (11.5-14.5); RED BLOOD CELL CT 5.41 /CUMM (4.70-6.10); WHITE BLOOD CELL COUNT 11.3 /CUMM (4.8-10.8)
--- NOTE | 2016-08-02 14:01 | ED GI/GU/ABDOMINAL COMPLAINT ---
History of Present Illness General Chief Complaint: Abdominal Pain/Flank Pain Stated Complaint: VOMITING/ABD PAIN Source: patient, family, old records Exam Limitations: clinical condition Vital Signs & Intake/Output Vital Signs & Intake/Output Vital Signs Date Time Temp Pulse Resp B/P B/P Pulse O2 O2 Flow FiO2 Mean Ox Delivery Rate 08/04 0800 97.8 76 13 120/80 96 Room Air ED Intake and Output 08/05 0000 08/04 1200 Intake Total 640 1299 Output Total 1999 Balance -1360 1299 Intake, IV 0 499 Intake, Oral 640 800 Number 1 Bowel Movements Output, Urine 1999 Allergies Coded Allergies: dog dander (HIVES 09/16/15) Reconcile Medications Insulin Glargine,Hum.rec.anlog (Lantus Solostar) 100 UNIT/ML (3 ML) INSULN.PEN 40 UNIT SC DAILY DIABETES (Reported) Insulin Lispro (Humalog Kwikpen U-100) (Unknown Strength) INSULN.PEN (Unknown Dose) SC SEE SLIDING SCALE DIABETES (Reported) Triage Note: PT COMES IN BY AMBULANCE WITH ABDOMINAL PAIN AND NAUSEA AND VOMITING SINCE THIS MORNING. HX DIABETES TYPE 1. PT STATES HE MISSED HIS METHADONE TODAY AND YESTERDAY DUE TO THE VOMITING. CRITICAL HIGH GLUCOSE WITH EMS Triage Nurses Notes Reviewed? yes Onset: Gradual Duration: hour(s):, continues in ED, getting worse Timing: recent history Quality/Severity: severe, stabbing Location: generalized abdomen Radiation: no radiation Activities at Onset: none Prior Abdominal Problems: similar symptoms HPI: Patient presents for evaluation of severe nausea and vomiting. Patient has a history of diabetic ketoacidosis and has also missed his last 2 doses of methadone due to his current symptoms. History is somewhat limited due to the patient's vomiting and abdominal pain. Patient states that his pain is due to the vomiting but his current medications have not helped. Past History Medical History Any Pertinent Medical History? 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 Age 45. Thyroiditis FATHER (medical hx unknown - not seen x years.). Age 48. Hx Contributory? No Review of Systems Review of Systems Constitutional: Reports: no symptoms. EENTM: Reports: no symptoms. Respiratory: Reports: no symptoms. Cardiovascular: Reports: no symptoms. GI: Reports: see HPI. Genitourinary: Reports: no symptoms. Musculoskeletal: Reports: no symptoms. Skin: Reports: no symptoms. Neurological/Psychological: Reports: no symptoms. Hematologic/Endocrine: Reports: no symptoms. Immunologic/Allergic: Reports: no symptoms. All Other Systems: Reviewed and Negative Physical Exam Physical Exam Gastrointestinal: see below Comments: Gen.: Well-nourished, well-developed, no acute respiratory distress. Acutely distressed secondary to abdominal pain and frequent vomiting. Head: Normocephalic, atraumatic. Eyes: Normal inspection bilaterally Ears: Normal inspection bilaterally Nose: Normal inspection Throat/mouth : Moist mucosa Neck: Supple, full range of motion, no goiter Heart: Regular rate and rhythm, no murmurs rubs or gallops Lungs: Clear to auscultation bilaterally with normal air entry Chest: Nontender Back: Normal range of motion Abdomen: Diffuse abdominal tenderness. Diminished bowel sounds. Abdomen is not rigid or guarded. Extremities: Normal range of motion grossly, equal radial pulses, no cyanosis clubbing or edema Neurologic: Cranial nerves grossly intact, speech is clear Skin: warm and dry Psychiatric: Calm, cooperative, no apparent delusions or hallucinations Core Measures ACS in differential dx? No Severe Sepsis Present: No Septic Shock Present: No Progress Differential Diagnosis: dka,methadone w/d,electrolyte abn Plan of Care: Orders Procedure Date/time Status Consistent Carbohydrate 2 08/04 B Active Transfer patient to 08/04 1017 Active Discharge Patient 08/04 UNK Active Initial ED EKG: none Comments: 08/02/2016 2:38:49 PM I discussed the patient's case with Dr. meza who recommends ICU admission, serial electrolytes and treatment for DKA. She will see a physician in the emergency department as soon as possible. 08/02/2016 2:54:41 PM since case discussed with Dr. Duke. Patient is also being evaluated by Dr. meza currently. Departure Departure Disposition: STILL A PATIENT Condition: Guarded Clinical Impression Primary Impression: DKA (diabetic ketoacidoses) Qualifiers: Diabetes mellitus type: type 1 Diabetes mellitus complication detail: without coma Qualified Code: E10.10 - Type 1 diabetes mellitus with ketoacidosis without coma Secondary Impressions: Methadone withdrawal Referrals: MICKY MEZA MD (PCP/Family) Departure Forms: Customer Survey General Discharge Information Admission Note Spoke With: BLADIMIR DAWSON,LAURA Nieto Documentation of Exam: Documentation of any treatments & extenuating circumstances including Concerns Regarding Discharge (functional status, medication knowledge or non-compliance, living conditions, etc.) that warrant an admission rather than observation: Patient is experiencing severe DKA with an extremely low bicarbonate level complicated by acute methadone withdrawal. He requires IV fluid resuscitation and an IV insulin drip with serial glucose determinations and adjustment of the insulin drip as needed. The patient has severe nausea vomiting and abdominal pain required treatment with IV antiemetics and IV narcotics. He cannot be safely treated as an outpatient under these circumstances and requires intensive care with close clinical monitoring of physical examination vital signs. It addition to the above electrolyzes should be monitored every 2-3 hours and treated accordingly. Patient is at very high risk of hypokalemia, acidosis, dehydration/volume depletion and narcotic withdrawal. He would be unable to comply with outpatient treatment and would very likely return in worse clinical condition. Endocrinology consultation should be considered. I predict he will require a multiple day hospitalization. Critical Care Note Critical Care Note Critical Care Time: 30-74 min Critical Care Note Critical Care Note Critical Care Time: 30-74 min
[2016-08-02] MEDS ORDERED: HUMALOG KW100 UNIT/1 SC (15:15)
[2016-08-02] MEDS ORDERED: LANTUS SOL100 UNIT/1 SC (15:16)
--- NOTE | 2016-08-02 16:03 | History & Physical ---
[facility] 08[facility]16 1603: General Information and HPI MD Statement: I have seen and personally examined ASIF JUAREZ and documented this H&P. The patient is a 25 year old M who presented with a patient stated chief complaint of [dka]. Source of Information: patient, family, old records Exam Limitations: no limitations History of Present Illness: Patient is a 25-year-old male with past medical history of asthma, diabetes type 1(diagnosed 1.5 years ago), pneumomediastinum (treated at [facility] 5 months ago ), multiple admissions for DKA in the past who presented to the ED today for abdominal pain, nausea, vomiting for the last 2 days. Patient reports that he has been feeling sick for the past 1 week with cold and chills. Since the last 2 days he has been having abdominal pain, nausea and vomiting and poor by mouth intake. He has been throwing up whenever he tried to eat. His mother reports that he has been acting weirdly for the past 1 week with increased anxiety, change in behavior and extremely restless. He has recently moved in with his mom a few months ago. She reports that he has been very good with his diet and insulin at home after his last DKA episode in April 2016. He has been following up with Dr. Duke and has been very disciplined in his life. He has chronic pains and has been doing 110 mg of methadone which he gets from [facility] [place] in [place]. For the last 2 days he has been really sick and throwing up at home. He denies any chest pain, shortness of breath, fevers, chills, diarrhea, constipation. Today morning he couldn't take his methadone dose because of extreme nausea and therefore she called the EMS to bring him to the hospital. Of note patient is known to be drug abuser but and nonalcoholic. He smokes about 1 pack per day for the last 10 years. In the ED vitals showed a temp of 97.4, pulse 95, respiration 22, BP 149/90, saturating 99% on room air. Labs showed a white count of 11.3, H&H 16.3/48.2, sodium 133, potassium 5.3, chloride 98, bicarbonate less than 5, anion gap 30(calculated, no lab value), BUN 12, creatinine 0.6, glucose 478, calcium 10.2, normal LFTs, alkaline phosphatase 187, UA pending. U tox positive acetone level Patient received 2 L fluid boluses, 10 units of Novolin insulin in the ED and was started on an insulin drip Allergies/Medications Allergies: Coded Allergies: dog dander (HIVES 09/16/15) Home Med list Insulin Glargine,Hum.rec.anlog (Lantus Solostar) 100 UNIT/ML (3 ML) INSULN.PEN 40 UNIT SC DAILY DIABETES (Reported) Insulin Lispro (Humalog Kwikpen U-100) (Unknown Strength) INSULN.PEN (Unknown Dose) SC SEE SLIDING SCALE DIABETES (Reported) Methadone HCl 10 MG/ML ORAL.CONC 110 MG PO DAILY SUBSTANCE ABUSE (Reported) Past History Travel History Traveled to [place] past 21 day No Medical History Neurological: NONE EENT: NONE Cardiovascular: Heart murmur Respiratory: NONE Gastrointestinal: alcoholic gastritis Hepatic: NONE Renal: NONE Musculoskeletal: NONE Psychiatric: anxiety, depression Endocrine: Diabetes type 1 PANCREATITIS Blood Disorders: NONE Cancer(s): NONE REGISTER CLERK/Reproductive: NONE History of MRSA: No History of VRE: No History of CDIFF: No Surgical History Surgical History: tonsillectomy Past Family/Social History Family History Relations & Conditions if any grandfather FH: diabetes mellitus MOTHER (hx GERD). Age 45. Thyroiditis FATHER (medical hx unknown - not seen x years.). Age 48. Psychosocial History Who Do You Live With? BROTHER Services at Home: NONE Primary Language: Occitan ETOH Use: denies use Living Will? no Power of Supervisor Winter/HCP? unknown Functional Ability ADLs Independent: dressing, eating, toileting, bathing. Ambulation: independent IADLs Independent: shopping, housework, finances, food prep, telephone, transportation , medication admin. Review of Systems Review of Systems Constitutional: Denies: diaphoresis, weakness. EENTM: Reports: no symptoms. Cardiovascular: Reports: no symptoms. Respiratory: Reports: no symptoms. GI: Reports: abdominal pain, nausea, vomiting. Genitourinary: Reports: no symptoms. Musculoskeletal: Reports: no symptoms. Skin: Reports: no symptoms. Neurological/Psychological: Reports: anxiety. Hematologic/Endocrine: Reports: no symptoms, see HPI, bruising, bleeding, polyuria, polydipsia, other. Exam & Diagnostic Data Last 24 Hrs of Vital Signs/I&O Vital Signs Date Time Temp Pulse Resp B/P B/P Pulse O2 O2 Flow FiO2 Mean Ox Delivery Rate 08/02 1613 98.1 112 18 178/95 100 Room Air 08/02 1456 98.4 97 22 166/84 94 Room Air 08/02 1321 97.4 95 22 149/90 99 Room Air Intake & Output 08/02 1600 / 0800 06 0000 Intake Total 1000 Output Total Balance 1000 Intake, IV 1000 Patient 83.915 kg Weight Weight Reported by Patient Measurement Method Physical Exam General Appearance Alert, Oriented X3, Moderate Distress Skin No Rashes, No Breakdown Skin Temp/Moisture Exam: Warm/Dry Sepsis Skin Exam (color): Normal for Ethnicity HEENT Atraumatic, PERRLA, EOMI, MUCOUS MEMBRANES VERY DRY Neck Supple, No JVD, No thryomegaly Lymphatic Cervical nl Cardiovascular Regular Rate, Normal S1, Normal S2 Lungs Clear to Auscultation, Normal Air Movement Abdomen Normal Bowel Sounds, Soft, DIFFUSE TENDERNESS Neurological Normal Speech, Normal Tone Extremities No Clubbing, No Cyanosis, No Edema, Normal Pulses Vascular Normal Pulses Last 24 Hrs of Labs/Arturo: Laboratory Tests 08/02/16 1530: Bicarbonate Actual 5.6 L, Mixed VBG pH 6.98 L, Mixed VBG pCO2 25 L, Mixed VBG O2 Saturation 64 H, P-50 (Temp Corrected) 97.7, Carboxyhemoglobin 0.7 L, O2 Concentration % RA, Temperature 97.7, O2 Delivery Method RA, Phlebotomy Draw Site LA 08/02/16 1359: Acetone Level Cancelled 08/02/16 1345: Anion Gap , Estimated GFR > 60, BUN/Creatinine Ratio 20.0, Glucose 478 H, Calcium 10.2, Total Bilirubin 0.6, AST 20, ALT 38, Alkaline Phosphatase 187 H, Total Protein 9.1 H, Albumin 5.4 H, Globulin 3.7, Albumin/Globulin Ratio 1.5, CBC w Diff NO MAN DIFF REQ, RBC 5.41, MCV 89.1, MCH 30.0, RDW 12.6, MPV 9.1, Gran % 83.0 H, Lymphocytes % 14.3 L, Monocytes % 2.2, Eosinophils % 0.1, Basophils % 0.4, Absolute Granulocytes 9.4 H, Absolute Lymphocytes 1.6, Absolute Monocytes 0.2, Absolute Eosinophils 0, Absolute Basophils 0, PUBS MCHC 33.7, Acetone Level POSITIVE AT 1:8 DIL Assessment/Plan Assessment: Patient is a 25-year-old male with past medical history of asthma, diabetes type1 (diagnosed 1.5 years ago), pneumomediastinum (treated at [facility] 5 months ago ),multiple admissions for DKA in the past who presented to the ED today for abdominal pain, nausea, vomiting for the last 2 days. In the ED vitals showed a temp of 97.4, pulse 95, respiration 22, BP 149/90, saturating 99% on room air. Labs showed a white count of 11.3, H&H 16.3/48.2, sodium 133, potassium 5.3, chloride 98, bicarbonate less than 5, anion gap 30(calculated, no lab value), BUN 12, creatinine 0.6, glucose 478, calcium 10.2, normal LFTs, alkaline phosphatase 187, UA pending. U tox positive acetone level EKG showed sinus tach at 101 bpm, T-wave inversions in V1 and V2, QTC 490. Patient received 2 L fluid boluses, 10 units of Novolin insulin in the ED and was started on an insulin drip Assesment: * Diabetic ketoacidosis * Dibetes mellitus type I, 9 hemoglobin A1c in February 2016 was 19.1 * Hyperkalemia * Methadone dependence * Multi-Drug user * Smoker * Generalized anxiety * Prolonged QTC Plan * Admit to ICU for close monitoring * IV normal saline at 100 mL an hour. These patient's normally run a free water deficit of 5 L. He received about 2 L in the ED. * Fingersticks every 1 hour. When sugar less than 250 mg, plan to change fluids to D5 half normal. * Check ICU bundle every 4 hours * Continue insulin drip, will change to subcutaneous insulin after anion gap closes. * We will check the lactic acid levels now * Check a troponin level * Check hemoglobin A1c * Endocrine consultation appreciated * Patient takes 110 mg of methadone from the [facility]. The dose needs to be confirmed in a.m. as the facility is closed at this time. He has undertaken the dose today due to nausea. * Nothing by mouth for now, we'll feed patient only after gap closed and patient 's nausea is better. * Continueusing IM Tigan for nausea as patient has prolonged QTC 500 * We will check a baseline EKG and the chest x-ray given patient was complaining of symptoms of cold. * Psych consult in a.m. for anxiety * DVT prophylaxis subcutaneous Lovenox * Full code As Ranked By This Provider Problem List: 1. DKA (diabetic ketoacidoses) Qualifiers Diabetes mellitus type: type 1 Diabetes mellitus complication detail: without coma Qualified Code: E10.10 - Type 1 diabetes mellitus with ketoacidosis without coma 2. Full code status 3. Methadone use disorder, mild, abuse Core Measures/Miscellaneous Acute Coronary Syndrome ACS Diagnosis: No Cerebrovascular Accident CVA/TIA Diagnosis: No Congestive Heart Failure CHF Diagnosis: No Venous Thromboembolism VTE Risk Factors: Age > 40, No Risk Factors No [place] VTE prophylaxis d/t: No contraindications No VTE Pharm Prophylaxis d/t: No contraindications VTE Diagnosis: No VTE Type: NONE VTE Confirmed by (Test): NONE Severe Sepsis Severe Sepsis Present: No Septic Shock Septic Shock Present: No Miscellaneous Documentation Attending Case Discussed With: LAURA GARRISON MD Primary Care Physician: MICKY DUKE MD Patient sees these Specialists none Level of Patient Care: Critical Care (CRI) LAURA GARRISON MD 08/02/16 1809: Attending MD Review Statement Attending Statement Attending MD Statement: examined this patient, discuss w/resident/PA/HEALTHCARE ECONOMICS MANAGER, agreed w/resident/PA/HEALTHCARE ECONOMICS MANAGER, discussed with family, reviewed EMR data (avail), discussed with nursing, discussed with case mgmt, reviewed images, amended to note Attending Assessment/Plan: SIGNIFICANT DATA Potassium 5.3 bicarbonate less than 5 white count 11.3. Acetone positive Pt with sig diabetes with asthma now with DKA SIg abd pain and retching from DKA and prob sub withdrawal Polysub abuse Prolonged qtc Generalized anxiety Smoker Methadone dep, with previous polysubstance abuse RECOMMENDATION IV fluids Insulin drip And monitor in ICU Fingerstick glucose every hour Check lactic acid Rule out myocardial infarction Continue methadone once he starts taking by mouth IV Zofran Repeat EKG Chest x-ray Urine for tox screen Psychiatry consult Continue Lovenox pt critically ill
[2016-08-02 17:41] VITALS: BP 160/80
--- NOTE | 2016-08-02 18:46 | RADIOLOGY REPORT ---
EXAMINATION: XR PORTABLE CHEST CLINICAL INFORMATION: Chills. Evaluate for infection. COMPARISON: CT chest 04/10/2016. TECHNIQUE: Portable frontal view of the chest was obtained. FINDINGS: Portions of the right lateral aspect of the right lung are excluded from the [id number]. The lungs are well-expanded and clear without focal airspace consolidation. No pleural effusions or pneumothoraces are identified. Cardiomediastinal contours are within normal limits. Soft tissues are unremarkable. No acute osseous abnormality is identified. IMPRESSION: No acute pulmonary process within the visualized portions of the bilateral lungs. A small portion of the lateral aspect of the right lung was not included in the [id number].
[2016-08-02 19:09] LABS: ABSOLUTE BASOPHIL COUNT 0 /CUMM (0.0-0.2); ABSOLUTE EOSINOPHIL COUNT 0 /CUMM (0.0-0.7); ABSOLUTE LYMPH COUNT 1.7 /CUMM (1.2-3.4); ABSOLUTE MONOCYTE COUNT 0.8 /CUMM (0.10-0.60); BASOPHIL % 0.1 % (0.0-2.0); EOSINOPHIL % 0 % (0-5); HEMATOCRIT 48.1 % (42-52); MEAN CORPUSCULAR HGB 30.2 PG (27.0-31.0); MEAN CORPUSCULAR HGB CONC 33.6 G/DL (33.0-37.0); MEAN CORPUSCULAR VOLUME 89.8 FL (80.0-94.0); PLATELET COUNT 302 /CUMM (130-400); RBC DISTRIBUTION WIDTH 12.9 % (11.5-14.5); RED BLOOD CELL CT 5.35 /CUMM (4.70-6.10)
[2016-08-02 19:11] LABS: WHITE BLOOD CELL COUNT 21.5 /CUMM (4.8-10.8)
[2016-08-02 19:12] LABS: GRANULOCYTE % 88.5 % (42.2-75.2)
--- NOTE | 2016-08-02 23:16 | CT SCAN REPORT ---
EXAMINATION: CT ABDOMEN AND PELVIS WITH CONTRAST CLINICAL INFORMATION: DKA with severe abdominal pain. Rule out abdominal process. COMPARISON: 04/10/2016 TECHNIQUE: Multidetector volumetric imaging was performed of the abdomen and pelvis before and after the IV administration of 95 mL of Optiray 320 intravenous contrast. Sagittal and coronal reformatted images were obtained on the technologist's workstation. DLP: 510 mGy-cm FINDINGS: LUNG BASES: The visualized lung bases are unremarkable. LIVER, GALLBLADDER, AND BILIARY TREE: The liver is normal in size, shape, and attenuation. No focal hepatic lesion or biliary ductal dilatation is present. The gallbladder is unremarkable with no evidence of radiopaque gallstones, gallbladder wall thickening, or obvious pericholecystic inflammatory changes. PANCREAS: Unremarkable. SPLEEN: Unremarkable. ADRENAL GLANDS: Unremarkable. KIDNEYS AND URETERS: The kidneys are normal in size, shape, and attenuation. No hydronephrosis, hydroureter, or calculi seen. No perinephric stranding. BLADDER: Unremarkable. GASTROINTESTINAL TRACT: The stomach and small bowel are unremarkable. No dilated loops of bowel or evidence of obstruction. Normal appendix. No colonic wall thickening or inflammatory change. Moderate colonic stool burden. No free air or free fluid. ABDOMINAL WALL: No significant hernia is appreciated. LYMPH NODES: Normal. VASCULAR: Unremarkable. PELVIC VISCERA: The prostate and seminal vesicles are unremarkable. OSSEOUS STRUCTURES: Unremarkable. IMPRESSION: No acute findings of the abdomen or pelvis. No inflammatory changes.
--- NOTE | 2016-08-02 23:16 | CT SCAN REPORT ---
EXAMINATION: CT HEAD WITHOUT CONTRAST CLINICAL INFORMATION: DKA with severe abdominal pain COMPARISON: CT head 06/30/2014 TECHNIQUE: Contiguous axial imaging was performed from the skull base to vertex without intravenous administration of contrast. DLP: 783.58 mGy-cm FINDINGS: There is no evidence of acute intracranial hemorrhage or territorial infarction. No abnormal mass effect or midline shift is seen. [place] to white matter differentiation is well preserved. No extra-axial fluid collections are identified. The ventricles are normal in size. There is no abnormal attenuation within the brain parenchyma. The osseous structures and soft tissues are normal. The mastoid air cells and visualized portions of the paranasal sinuses are well aerated. IMPRESSION: No acute intracranial pathology.
--- NOTE | 2016-08-02 23:56 | Cons- Endocrinology ---
General Information and HPI Consulting Request Date of Consult: 08/02/16 Requested By: ICU team Reason for Consult: DKA management Source of Information: patient, old records Exam Limitations: poor historian History of Present Illness: Patient is a 25-year-old male with past medical history of asthma, diabetes type 1, pneumomediastinum (treated at [facility] 5 months ago ),multiple admissions for DKA in the past who presented to the ED today for abdominal pain, nausea, vomiting for the last 2 days. After he was discharged from [facility], he was put on Lantus 40 units daily and Humalog before meals. As per his mother, he was doing well x 3 months. In ER, his glucose was 478, Cr 0.6, K 5.3, sodium 133, bicarb < 5. He was placed on insulin drip and NS and he will be admistted to ICU. Allergies/Medications Allergies: Coded Allergies: dog dander (HIVES 09/16/15) Home Med List: Insulin Glargine,Hum.rec.anlog (Lantus Solostar) 100 UNIT/ML (3 ML) INSULN.PEN 40 UNIT SC DAILY DIABETES (Reported) Insulin Lispro (Humalog Kwikpen U-100) (Unknown Strength) INSULN.PEN (Unknown Dose) SC SEE SLIDING SCALE DIABETES (Reported) Methadone HCl 10 MG/ML ORAL.CONC 110 MG PO DAILY SUBSTANCE ABUSE (Reported) Review of Systems Review of Systems Constitutional: Reports: see HPI. Past History Travel History Traveled to [place] past 21 day No Medical History Blood Transfusion Hx: No Neurological: NONE EENT: NONE Cardiovascular: Heart murmur Respiratory: NONE Gastrointestinal: alcoholic gastritis Hepatic: NONE Renal: NONE Musculoskeletal: NONE Psychiatric: anxiety, depression Endocrine: Diabetes type 1 PANCREATITIS Blood Disorders: NONE Cancer(s): NONE CLOTH BLEACHING SUPERVISOR/Reproductive: NONE Surgical History Surgical History: tonsillectomy Family History Relations & Conditions If Any: grandfather FH: diabetes mellitus MOTHER (hx GERD). Age 45. Thyroiditis FATHER (medical hx unknown - not seen x years.). Age 48. Psychosocial History Where Do You Live? Home Who Do You Live With? BROTHER Services at Home: NONE Primary Language: Azeri Smoking Status: Current Everyday Smoker ETOH Use: denies use Living Will? no Power of Basting Marker/HCP? unknown Functional Ability ADLs Independent: dressing, eating, toileting, bathing. Ambulation: independent IADLs Independent: shopping, housework, finances, food prep, telephone, transportation , medication admin. Exam & Diagnostic Data Last 24 Hrs of Vital Signs/I&O Vital Signs Date Time Temp Pulse Resp B/P B/P Pulse O2 O2 Flow FiO2 Mean Ox Delivery Rate 08/02 1741 98.1 99 15 160/80 100 Room Air 08/02 1613 98.1 112 18 178/95 100 Room Air 08/02 1456 98.4 97 22 166/84 94 Room Air 08/02 1321 97.4 95 22 149/90 99 Room Air Intake & Output 08/02 1600 08/02 0800 08/02 0000 Intake Total 1000 Output Total Balance 1000 Intake, IV 1000 Patient 185 lb Weight Weight Reported by Patient Measurement Method Physical Exam General Appearance: anxious (patient refused exam) Assessment/Plan Assessment/Plan Patient is a 25-year-old male with past medical history of asthma, diabetes type 1, pneumomediastinum (treated at [facility] 5 months ago ),multiple admissions for DKA in the past who presented to the ED today for abdominal pain, nausea, vomiting for the last 2 days. He was admitted to ICU for DKA. Management: 1. continue insulin drip; monitor FSGs every one hour and adjust insulin drip accordingly; 2. continue IVF of NS; will add dextrose to his IVF when his FSG is less than 250; 3. monitor In /out and electrolytes every 4 hours; 4. add potassium supplement if his K level is less than 5.2 and adjust IVF accordingly 5. repeat ABG as it is indicated. will follow. Please call if there are any questions. Consult Acknowledgment - Thank you for your consult request.
[2016-08-02 23:59] VITALS: BP 181/89
[2016-08-03 01:00] VITALS: BP 142/69
[2016-08-03 06:00] LABS: ABSOLUTE BASOPHIL COUNT 0 /CUMM (0.0-0.2); ABSOLUTE EOSINOPHIL COUNT 0 /CUMM (0.0-0.7); ABSOLUTE LYMPH COUNT 2.1 /CUMM (1.2-3.4); ABSOLUTE MONOCYTE COUNT 0.6 /CUMM (0.10-0.60); BASOPHIL % 0.2 % (0.0-2.0); EOSINOPHIL % 0 % (0-5); GRANULOCYTE % 81.6 % (42.2-75.2); HEMATOCRIT 44.6 % (42-52); MEAN CORPUSCULAR HGB 30.3 PG (27.0-31.0); MEAN CORPUSCULAR HGB CONC 33.7 G/DL (33.0-37.0); MEAN CORPUSCULAR VOLUME 89.8 FL (80.0-94.0); MEAN PLATELET VOLUME 8.7 FL (7.4-10.4); PLATELET COUNT 292 /CUMM (130-400); RBC DISTRIBUTION WIDTH 12.7 % (11.5-14.5); RED BLOOD CELL CT 4.96 /CUMM (4.70-6.10); WHITE BLOOD CELL COUNT 14.8 /CUMM (4.8-10.8)
[2016-08-03 08:00] VITALS: BP 146/80
--- NOTE | 2016-08-03 08:52 | PN- Resident CRCU ---
Subjective HPI/CRCU Issues: No acute events overnight. Patient was seen and examined this morning. Both patient and his mother at bedside appear anxious, however patient feels somewhat improved. He is no longer vomiting but continues to have nausea with dry heaves. He denies abdominal pain. He remains NPO. He is on insulin drip which was increased from 3 to 4 units/hr later in the day based on FSGs. Objective Vital Signs & I&O Last 8 Hrs of Vitals and I&O: Intake & Output 08/03 1600 Intake Total 1354 Output Total 1000 Balance 354 Intake, IV 1324 Intake, Oral 30 Number 0 Bowel Movements Output, 0 Emesis Output, Urine 1000 Exam General Appearance: well developed/nourished, alert, awake, anxious, oriented x3 Head: atraumatic, normal appearance Ears, Nose, Throat: moist mucus membranes Neck: normal inspection Respiratory: lungs clear Cardiovascular: regular rate/rhythm, normal S1 and S2 Gastrointestinal: soft, non-tender, positive bowel sounds Extremities: no edema, no clubbing or cyanosis Skin: intact, normal color, warm/dry Current Medications: Current Medications Sig/Jenni Start time Last Medication Dose Route Stop Time Status Admin Acetaminophen 325 MG Q6P PRN 08/02 1615 AC PO Dextrose/Sodium 1,000 ML Q8H 08/02 1845 DC 08/02 Chloride IV 1848 Enoxaparin Sodium 40 MG DAILY 08/02 1601 AC SC Hydromorphone HCl 0.4 MG ONCE ONE 08/03 0515 DC 08/03 IV 08/03 0516 0531 Insulin Human Regular 100 UNIT Q24H 08/02 1445 AC 08/03 Sodium Chloride 100 ML IV 1300 Lorazepam 0.25 MG Q8 PRN 08/03 1230 AC PO 08/10 1229 Methadone HCl 90 MG DAILY 08/04 1000 DC PO Methadone HCl 45 MG BID 08/04 1000 AC PO Methadone HCl 110 MG DAILY 08/03 1100 DC 08/03 PO 1206 Oxycodone HCl 5 MG Q6P PRN 08/02 1615 AC PO Oxycodone/ 2 TAB Q6P PRN 08/02 1615 AC 08/03 Acetaminophen PO 0003 Potassium Chloride 20 MEQ Q8H 08/03 1245 AC 08/03 Dextrose/Sodium 1,000 ML IV 1406 Chloride Potassium Chloride 20 MEQ Q8H 08/03 0330 DC 08/03 Dextrose/Sodium 1,000 ML IV 1114 Chloride Promethazine HCl 12.5 MG ONCE ONE 08/03 0330 DC 08/03 IV 08/03 033 0342 Sodium Bicarbonate 150 MEQ CONTINOUS INFUSION 08/02 2200 CAN Dextrose/Water 1,000 ML IV Trimethobenzamide HCl 200 MG 4 TIMES/DAY PRN 08/02 1800 AC 08/03 IM 0751 Results Results: Laboratory Tests 08/03 08/03 08/03 08/03 1640 1120 0530 0130 Chemistry Sodium (137 - 145 mmol/L) 132 L 130 L 133 L Potassium (3.5 - 5.1 mmol/L) 4.2 4.3 4.7 Chloride (98 - 107 mmol/L) 107 102 104 Carbon Dioxide (22 - 30 mmol/L) 13 L 10 L 9 *L Anion Gap (5 - 16) 12 18 H 20 H BUN (9 - 20 mg/dL) 6 L 6 L 7 L Creatinine (0.7 - 1.2 mg/dL) 0.5 L 0.5 L 0.6 L Estimated GFR (>60 ml/min) > 60 > 60 > 60 Glucose (65 - 99 mg/dL) 168 H 194 H 206 H Lactic Acid (0.7 - 2.1 mmol/L) 1.4 Calcium (8.4 - 10.2 mg/dL) 9.2 9.7 9.3 Phosphorus (2.5 - 4.5 mg/dL) 2.7 2.4 L 2.9 Magnesium (1.6 - 2.3 mg/dL) 1.9 1.9 1.8 Total Bilirubin (0.2 - 1.3 mg/dL) 0.5 0.6 0.5 AST (17 - 59 U/L) 30 32 25 ALT (21 - 72 U/L) 22 34 29 Albumin (3.5 - 5.0 g/dL) 4.0 4.9 4.7 Coagulation PT (9.4 - 12.5 SEC) 10.6 INR (0.90 - 1.17) 1.01 Hematology CBC w Diff NO MAN DIFF REQ WBC (4.8 - 10.8 /CUMM) 14.8 H RBC (4.70 - 6.10 /CUMM) 4.96 Hgb (14.0 - 18.0 G/DL) 15.0 Hct (42 - 52 %) 44.6 MCV (80.0 - 94.0 FL) 89.8 MCH (27.0 - 31.0 PG) 30.3 RDW (11.5 - 14.5 %) 12.7 Plt Count (130 - 400 /CUMM) 292 MPV (7.4 - 10.4 FL) 8.7 Gran % (42.2 - 75.2 %) 81.6 H Lymphocytes % (20.5 - 51.1 %) 13.9 L Monocytes % (1.7 - 9.3 %) 4.3 Eosinophils % (0 - 5 %) 0 Basophils % (0.0 - 2.0 %) 0.2 Absolute Granulocytes (1.4 - 6.5 /CUMM) 12.0 H Absolute Lymphocytes (1.2 - 3.4 /CUMM) 2.1 Absolute Monocytes (0.10 - 0.60 /CUMM) 0.6 Absolute Eosinophils (0.0 - 0.7 /CUMM) 0 Absolute Basophils (0.0 - 0.2 /CUMM) 0 PUBS MCHC (33.0 - 37.0 G/DL) 33.7 06/ 06/ 0130 2359 Chemistry Sodium (137 - 145 mmol/L) 131 L Potassium (3.5 - 5.1 mmol/L) 5.1 Chloride (98 - 107 mmol/L) 104 Carbon Dioxide (22 - 30 mmol/L) < 5 *L Anion Gap (5 - 16) 22 H BUN (9 - 20 mg/dL) 7 L Creatinine (0.7 - 1.2 mg/dL) 0.6 L Estimated GFR (>60 ml/min) > 60 Glucose (65 - 99 mg/dL) 261 H Calcium (8.4 - 10.2 mg/dL) 9.1 Phosphorus (2.5 - 4.5 mg/dL) 2.7 Magnesium (1.6 - 2.3 mg/dL) 1.7 Total Bilirubin (0.2 - 1.3 mg/dL) 1.0 AST (17 - 59 U/L) 29 ALT (21 - 72 U/L) 22 Troponin I (<0.11 ng/ml) 0.02 Cancelled Albumin (3.5 - 5.0 g/dL) 4.7 Serology Lyme Disease Antibody Pending CT Scan Findings: CT HEAD W/O IV CONTRAST: No acute intracranial pathology. CT ABDOMEN/PELVIS WITH IV CONTRAST: No acute findings of the abdomen or pelvis. No inflammatory changes. Impression/Plan Impression/Problem List Impression: Mr. eMndez is a 25 y/o M with PMHx of asthma, T1DM and pneumomediastinum, with multiple previous admissions for DKA, who is admitted to the ICU for DKA. Problem List: 1. T1DM (type 1 diabetes mellitus) 2. Opiate withdrawal 3. DKA (diabetic ketoacidoses) 4. Anxiety 5. Smoker 6. Opiate dependence 7. Methadone use Pain Ratin Tomorrow's Labs & Rationales: CBC and ICU bundle (ICU patient) Plan Respiratory: Stable. Satting >95% on room air with no respiratory distress. Infectious Diseases: No evidence of infection. Remains afebrile. Leukocytosis without bandemia likely reactive secondary to DKA. WBC count improved from 21.5 yesterday to 14.8 today. CXR with no evidence of pneumonia. CT Abdomen/Pelvis with no findings concerning for infection. Cardiovascular: #Prolonged QTc: QTC has gradually increased from 490 on admission to 567 this afternoon. Although patient did receive 4 mg of IV Zofran yesterday afternoon, this would not explain the significant increase. Although methadone can cause QTc prolongation, per Dr. Harmon at the [facility] where patient gets his methadone, this is unlikely to cause such a drastic prolongation of QTc in a young patient. Also QTc uptrended this admission despite patient not receiving any methadone during this time which would argue against methadone as the culprit. Most likely etiology for the QTc prolongation is DKA and the associated electrolyte abnormalities. * Monitor QTc frequently by checking EKGs at least daily. * Avoid QTC prolonging medications. #Hypertension: BP elevated to a maximum of 181/89 overnight, however BP has improved today and is currently normal. Hypertension likely secondary to acute stress in the setting of DKA. * Continue to monitor BP. * Decrease IVF from 200 cc/hr to 125 cc/hr. Hematology: H/H stable. No evidence of bleeding. Metabolic: #DKA: Etiology unclear. CXR and CT Abdomen/Pelvis with IV Contrast unremarkable. Anion gap has closed on insulin drip, increased from 3 to 4 units/hour this afternoon based on FSGs. Acidosis has improved but bicarbonate remains low, most recent value 13. Hyperkalemia has resolved. Patient is hyponatremic with Na in the low 130s. * Endocrinology following. Appreciate their recs. * Continue insulin drip until bicarbonate reaches 18. * Monitor FSGs hourly and adjust insulin drip as needed to keep FSG between 100- 200. * Change IVF from 20 mEq KCl in D5W1/2NS @ 200 cc/hr to 20 mEq of KCl in D5NS @ 125 cc/hr given hyponatremia and elevated blood pressures. * Monitor ICU bundle Q-46H PRN and adjust IVF accordingly. * Tigan 200 mg IM QID PRN for nausea/vomiting. Avoid Zofran in the setting of prolonged QTC. * Monitor I/Os. Alimentary: Start clear liquids. Neurological: #Opiate dependence: * Methadone dose of 110 mg daily confirmed with [facility] and today's dose administered. * Dr. Harmon of [facility] contacted for recommendations on methadone dosing in the setting of prolonged QTc. Per her recommendations, methadone dose was changed to 45 mg PO BID with plans to monitor QTc frequently and adjust dosing as tolerated. OK to adjust methadone dose on discharge per Dr. Harmon, who is requesting the discharge summary to be faxed to her at . #Anxiety: Likely secondary to opiate withdrawal as patient went 2 days without methadone. Denies history of depression or anxiety. * Psychiatry following. Appreciate their recs. * No indication for CBT or SSRI at this time per psychiatry. * Administer Ativan 0.25 mg PO Q8H PRN only for severe anxiety interfering with care. * Methadone resumed per above. Skin: No active issues. DVT/Prophylaxis: early ambulation low risk Code Status: Full Code
--- NOTE | 2016-08-03 11:36 | PN- CRCU ---
Subjective HPI/Critical Care Issues: Feels much improved No more vomiting no more abdominal discomfort Still has ongoing fatigue No other complaints other than being tiredSIGNIFICANT DATA CT of the head showed no acute intracranial pathology, CT abdomen and pelvis showed no acute findings chest x-ray showed no acute pulmonary process Anion gap is down to 20 bicarbonate is up to 9 BUN/creatinine stable stock screen was positive for methadone and cannot this white count up to 14 but has improved Platelets 295 ABG and VBG's reviewed Objective Current Medications: Current Medications Sig/Jenni Start time Last Medication Dose Route Stop Time Status Admin Acetaminophen 325 MG Q6P PRN 08/02 1615 AC PO Dextrose/Sodium 1,000 ML Q8H 08/02 1845 DC 08/02 Chloride IV 1848 Enoxaparin Sodium 40 MG DAILY 08/02 1601 AC SC Hydromorphone HCl 0.4 MG ONCE ONE 08/03 0515 DC 08/03 IV 08/03 0516 0531 Hydromorphone HCl 0.4 MG ONCE ONE 08/02 1900 DC 08/02 IV 08/02 1901 1907 Hydromorphone HCl 0 .STK-MED ONE 08/02 1644 DC .ROUTE Hydromorphone HCl 0.4 MG ONCE ONE 08/02 1630 DC / IV 08/02 1631 1642 Hydromorphone HCl 0 .STK-MED ONE 08/02 1446 DC .ROUTE Hydromorphone HCl 1 MG ONCE ONE 08/02 1430 DC / IV / 1431 1455 Insulin Human Regular 100 UNIT Q24H / 1445 AC / Sodium Chloride 100 ML IV 1541 Insulin Human Regular 10 UNITS ONCE ONE 08/02 1445 DC /02 IV / 1446 1538 Lorazepam 0 .STK-MED ONE 08/02 1446 DC .ROUTE Lorazepam 1 MG ONCE ONE 08/02 1415 DC / IV 08/02 1416 1455 Methadone HCl 110 MG DAILY 08/03 1100 AC PO Nicotine 21 MG DAILY 08/02 1703 DC TOP Ondansetron HCl 4 MG Q6P PRN 08/02 1715 DC IV Ondansetron HCl 0 .STK-MED ONE 08/02 1413 DC .ROUTE Ondansetron HCl 4 MG ONCE ONE 08/02 1400 DC 08/02 IV 08/02 1401 1411 Oxycodone HCl 5 MG Q6P PRN 08/02 1615 AC PO Oxycodone/ 2 TAB Q6P PRN 08/02 1615 AC 08/03 Acetaminophen PO 0003 Potassium Chloride 20 MEQ Q8H 08/03 0330 AC 08/03 Dextrose/Sodium 1,000 ML IV 1114 Chloride Promethazine HCl 12.5 MG ONCE ONE 08/03 0330 DC 08/03 IV 08/03 0331 0342 Sodium Bicarbonate 150 MEQ CONTINOUS INFUSION 08/02 2200 CAN Dextrose/Water 1,000 ML IV Sodium Chloride 1,000 ML Q8H 08/02 1715 DC 08/02 IV 1735 Sodium Chloride 1,000 ML BOLUS ONE 08/02 1445 DC 08/02 IV 08/02 1544 1455 Sodium Chloride 1,000 ML BOLUS ONE 08/02 1400 DC / IV / 1459 1403 Trimethobenzamide HCl 200 MG 4 TIMES/DAY PRN 08/02 1800 AC 08/03 IM 0751 Vital Signs & I&O Last 24 Hrs of Vitals and I&O: Vital Signs Date Time Temp Pulse Resp B/P B/P Pulse O2 O2 Flow FiO2 Mean Ox Delivery Rate 08/03 0400 99 Room Air 08/03 0100 99.4 101 20 142/69 99 Room Air 06/ 0000 100 Room Air / 2359 99.4 105 22 181/89 100 Room Air 100% / 1741 98.1 99 15 160/80 100 Room Air / 1613 98.1 112 18 178/95 100 Room Air / 1456 98.4 97 22 166/84 94 Room Air / 1321 97.4 95 22 149/90 99 Room Air Intake & Output 08/03 1600 03 0800 06/ 0000 Intake Total 1202 602 Output Total 1000 1350 Balance 202 -748 Intake, IV 1202 602 Output, 100 Emesis Output, Urine 1000 1250 Patient 185 lb Weight Impression/Plan Impression/Plan Impression/Plan: Physical Exam General Appearance Alert, Oriented X3, Moderate Distress Skin No Rashes, No Breakdown Skin Temp/Moisture Exam: Warm/Dry Sepsis Skin Exam (color): Normal for Ethnicity HEENT Atraumatic, PERRLA, EOMI, MUCOUS MEMBRANES DRY Neck Supple, No JVD, No thryomegaly Lymphatic Cervical nl Cardiovascular Regular Rate, Normal S1, Normal S2 Lungs Clear to Auscultation, Normal Air Movement Abdomen Normal Bowel Sounds, Soft, DIFFUSE TENDERNESS Neurological Normal Speech, Normal Tone Extremities No Clubbing, No Cyanosis, No Edema, Normal Pulses Vascular Normal Pulses IMPRESSION Pt with sig diabetes with asthma now with DKA SIg abd pain and retching from DKA and prob sub withdrawal, now improving Polysub abuse Prolonged qtc Generalized anxiety Smoker Methadone dep, with previous polysubstance abuse RECOMMENDATION IV fluids, and insulin as is until the anion gap normalizes Endocrine on board Frequent sugar monitoring Continue to cycle troponin and daily EKG and monitor QTC Continue methadone once he starts taking by mouth Psychiatry consult Continue Lovenox pt critically ill
--- NOTE | 2016-08-03 11:36 | Cons- Psychiatry ---
Psychiatric Consult Date of Consult: 08/03/16 Reason for Consult: "anxiety" History of Present Illness: Pt with PMH of asthma and DMI admitted for DKA. Pt noted to be very anxious over the course of admission thus far, heightened by mother when at bedside. Able to interview pt without mother at bedside. He notes that he is "anxious because I'm sick." He denies baseline depression, SI or HI, or anxiety. He was quite adamant that anxious only here at at this time with no level of anxiety or panic otherwise. He denies depression, edgardo, psychosis or TRS as well. 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 Pt started methadone five months ago after cessation of use of oxycodone for two years. Smokes mj and 1ppd tobacco as well. Allergies: Coded Allergies: dog dander (HIVES 09/16/15) Current Medications: Current Medications Sig/Jenni Start time Last Medication Dose Route Stop Time Status Admin Acetaminophen 325 MG Q6P PRN 08/02 1615 AC PO Dextrose/Sodium 1,000 ML Q8H 08/02 1845 DC 08/02 Chloride IV 1848 Enoxaparin Sodium 40 MG DAILY 08/02 1601 AC SC Hydromorphone HCl 0.4 MG ONCE ONE 08/03 0515 DC 08/03 IV 08/03 0516 0531 Hydromorphone HCl 0.4 MG ONCE ONE 08/02 1900 DC 08/02 IV 08/02 1901 1907 Hydromorphone HCl 0 .STK-MED ONE 08/02 1644 DC .ROUTE Hydromorphone HCl 0.4 MG ONCE ONE 08/02 1630 DC / IV 08/02 1631 1642 Hydromorphone HCl 0 .STK-MED ONE 08/02 1446 DC .ROUTE Hydromorphone HCl 1 MG ONCE ONE 08/02 1430 DC / IV 08/02 1431 1455 Insulin Human Regular 100 UNIT Q24H 08/02 1445 AC 06/02 Sodium Chloride 100 ML IV 1541 Insulin Human Regular 10 UNITS ONCE ONE 08/02 1445 DC / IV 08/02 1446 1538 Lorazepam 0 .STK-MED ONE 08/02 1446 DC .ROUTE Lorazepam 1 MG ONCE ONE 08/02 1415 DC 06/02 IV 08/02 1416 1455 Methadone HCl 110 MG DAILY 08/03 1100 AC PO Nicotine 21 MG DAILY 08/02 1703 DC TOP Ondansetron HCl 4 MG Q6P PRN 08/02 1715 DC IV Ondansetron HCl 0 .STK-MED ONE 08/02 1413 DC .ROUTE Ondansetron HCl 4 MG ONCE ONE 08/02 1400 DC 08/02 IV 08/02 1401 1411 Oxycodone HCl 5 MG Q6P PRN 08/02 1615 AC PO Oxycodone/ 2 TAB Q6P PRN 08/02 1615 AC 08/03 Acetaminophen PO 0003 Potassium Chloride 20 MEQ Q8H 08/03 0330 AC 08/03 Dextrose/Sodium 1,000 ML IV 1114 Chloride Promethazine HCl 12.5 MG ONCE ONE 08/03 0330 DC 08/03 IV 08/03 0331 0342 Sodium Bicarbonate 150 MEQ CONTINOUS INFUSION 08/02 2200 CAN Dextrose/Water 1,000 ML IV Sodium Chloride 1,000 ML Q8H 08/02 1715 DC 08/02 IV 1735 Sodium Chloride 1,000 ML BOLUS ONE 08/02 1445 DC 06/ IV 08/02 1544 1455 Sodium Chloride 1,000 ML BOLUS ONE 08/02 1400 DC / IV / 1459 1403 Trimethobenzamide HCl 200 MG 4 TIMES/DAY PRN 08/02 1800 AC 08/03 IM 0751 Past History Past Medical History Neurological: NONE EENT: NONE Cardiovascular: Heart murmur Respiratory: NONE Gastrointestinal: alcoholic gastritis Hepatic: NONE Renal: NONE Musculoskeletal: NONE Psychiatric: anxiety, depression Endocrine: Diabetes type 1 PANCREATITIS Blood Disorders: NONE Cancer(s): NONE 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 Past Surgical History Surgical History: tonsillectomy Psychiatric Treatment History Psych Treatment Psychiatric Treatment No Substance Use/Abuse History Drug Use/Abuse Substances Used/Abused Yes Substance Used/Abused Prescribed Opiates First Use years ago Last Used five months ago How much used/taken pt unable to specify How often daily For how long two years Route of use PO Substance Abuse Treatment Substance Abuse Treatment Past Substance Abuse TX Yes Inpatient Treatment No Outpatient Treatment Yes ([facility] [place]) Reason for Treatment MM Dates of Treatment early 2016 Response to Treatment positive Assessment/Plan Mental Status Orientation: Person, Place, Situation Affect: Anxious (and irritable) Speech: Soft Neuro-vegetative: WNL Mental Status Exam: MSE Appears as stated age. Cooperative behavior, good, appropriate eye contact. Nl speech rate and prosody. ++ psychomotor agitation. Mood not good Affect irritable, constricted, appropriate, non-liable. Linear and goal directed thought process. Denies SI or HI. Does not appear to be responding to internal stimuli. Denies AVHs, paranoia, or delusions. I/J: limited Lab Results: Current Medications Sig/Jenni Start time Last Medication Dose Route Stop Time Status Admin Acetaminophen 325 MG Q6P PRN 08/02 1615 AC PO Dextrose/Sodium 1,000 ML Q8H 08/02 1845 DC 08/02 Chloride IV 1848 Enoxaparin Sodium 40 MG DAILY 08/02 1601 AC SC Hydromorphone HCl 0.4 MG ONCE ONE 08/03 0515 DC 08/03 IV 08/03 0516 0531 Hydromorphone HCl 0.4 MG ONCE ONE 08/02 1900 DC 08/02 IV 08/02 1901 1907 Hydromorphone HCl 0 .STK-MED ONE 08/02 1644 DC .ROUTE Hydromorphone HCl 0.4 MG ONCE ONE 08/02 1630 DC / IV 08/02 1631 1642 Hydromorphone HCl 0 .STK-MED ONE 08/02 1446 DC .ROUTE Hydromorphone HCl 1 MG ONCE ONE 08/02 1430 DC / IV 08/02 1431 1455 Insulin Human Regular 100 UNIT Q24H / 1445 / Sodium Chloride 100 ML IV 1541 Insulin Human Regular 10 UNITS ONCE ONE 08/02 1445 DC /02 IV 08/02 1446 1538 Lorazepam 0 .STK-MED ONE 08/02 1446 DC .ROUTE Lorazepam 1 MG ONCE ONE 08/02 1415 DC / IV 08/02 1416 1455 Methadone HCl 110 MG DAILY 08/03 1100 AC PO Nicotine 21 MG DAILY 08/02 1703 DC TOP Ondansetron HCl 4 MG Q6P PRN 08/02 1715 DC IV Ondansetron HCl 0 .STK-MED ONE 08/02 1413 DC .ROUTE Ondansetron HCl 4 MG ONCE ONE 08/02 1400 DC 08/02 IV 08/02 1401 1411 Oxycodone HCl 5 MG Q6P PRN 08/02 1615 AC PO Oxycodone/ 2 TAB Q6P PRN 08/02 1615 AC 08/03 Acetaminophen PO 0003 Potassium Chloride 20 MEQ Q8H 08/03 0330 AC 08/03 Dextrose/Sodium 1,000 ML IV 1114 Chloride Promethazine HCl 12.5 MG ONCE ONE 08/03 0330 DC 08/03 IV 08/03 0331 0342 Sodium Bicarbonate 150 MEQ CONTINOUS INFUSION 08/02 2200 CAN Dextrose/Water 1,000 ML IV Sodium Chloride 1,000 ML Q8H 08/02 1715 DC 08/02 IV 1735 Sodium Chloride 1,000 ML BOLUS ONE 08/02 1445 DC 08/02 IV 08/02 1544 1455 Sodium Chloride 1,000 ML BOLUS ONE 08/02 1400 DC / IV 08/02 1459 1403 Trimethobenzamide HCl 200 MG 4 TIMES/DAY PRN 08/02 1800 AC 08/03 IM 0751 Diffential Diagnosis: Adjustment disorder with anxious mood Unspecified anxiety disorder Opiate use disorder, recent sustain remission on MM Impression: A/P: Pt with OUD on MM now with marked anxiety likely 2/2 opiate wd as last full dose methodone was over 48 hours ago. As pt denying baseline anxiety or depression, no indication for longer term treatment with SSRI or CBT for anxiety. - Recommend restart of methadone after confirm dose with [facility] [place] - Given significantly prolonged QTc at this time, would try to limit use of any agents that may worsen this. - Given low severity of anxiety and capability of patient to use redirection and some degree of coping skills, would only treat when interfering with care would very low-dose ativan at 0.25mg PO q8hrs PRN severe anxiety. - Will continue to follow Thank you for the consult.
[2016-08-03 11:59] LABS: PT 10.6 SEC (9.4-12.5)
--- NOTE | 2016-08-03 12:44 | PN- Diabetes ---
Assessment/Plan Assessment: Patient is a 25-year-old male with past medical history of asthma, diabetes type 1, pneumomediastinum (treated at [facility] 5 months ago ),multiple admissions for DKA in the past who presented to the ED today for abdominal pain, nausea, vomiting for the last 2 days. He was admitted to ICU for DKA. His HbA1c was 17.7%. Currently he is on insulin drip 3 units per hour, D5 1/2 NS with 20 meq of KCL at 200 ml per hour. His FSGs were 215, 205, 212, 208 and 194. Plan: 1. continue insulin drip for now; 2. monitor FSG every one hour; The goal of FSG is between 100-200. 3. recommend changing IVF to D5NS with 20 meq of KCL at 125 ml/hour; 4. monitor electrolytes every 4-6 hours and adjust IVF accordingly. will follow. Please call if there are any questions. Subjective Subjective: Patient is sleeping at this point. Objective Last 24 Hrs of Vital Signs/I&O Vital Signs Date Time Temp Pulse Resp B/P B/P Pulse O2 O2 Flow FiO2 Mean Ox Delivery Rate 08/03 1200 98 Room Air / 0800 99.0 97 24 146/80 100 Room Air / 0800 100 Room Air / 0400 99 Room Air / 0100 99.4 101 20 142/69 99 Room Air 06/ 0000 100 Room Air 06/ 2359 99.4 105 22 181/89 100 Room Air 100% / 1741 98.1 99 15 160/80 100 Room Air / 1613 98.1 112 18 178/95 100 Room Air 06/ 1456 98.4 97 22 166/84 94 Room Air 06/ 1321 97.4 95 22 149/90 99 Room Air Intake & Output 08/03 1600 /03 0800 06/ 0000 Intake Total 1202 602 Output Total 1000 1350 Balance 202 -748 Intake, IV 1202 602 Output, 100 Emesis Output, Urine 1000 1250 Patient 185 lb Weight Findings Pertinent Lab/Arturo Results: Laboratory Tests 08/03 08/03 08/03 08/03 1120 0530 0130 0130 Chemistry Sodium (137 - 145 mmol/L) 130 L 133 L 131 L Potassium (3.5 - 5.1 mmol/L) 4.3 4.7 5.1 Chloride (98 - 107 mmol/L) 102 104 104 Carbon Dioxide (22 - 30 mmol/L) 10 L 9 *L < 5 *L Anion Gap (5 - 16) 18 H 20 H 22 H BUN (9 - 20 mg/dL) 6 L 7 L 7 L Creatinine (0.7 - 1.2 mg/dL) 0.5 L 0.6 L 0.6 L Estimated GFR (>60 ml/min) > 60 > 60 > 60 Glucose (65 - 99 mg/dL) 194 H 206 H 261 H Lactic Acid (0.7 - 2.1 mmol/L) 1.4 Calcium (8.4 - 10.2 mg/dL) 9.7 9.3 9.1 Phosphorus (2.5 - 4.5 mg/dL) 2.4 L 2.9 2.7 Magnesium (1.6 - 2.3 mg/dL) 1.9 1.8 1.7 Total Bilirubin (0.2 - 1.3 mg/dL) 0.6 0.5 1.0 AST (17 - 59 U/L) 32 25 29 ALT (21 - 72 U/L) 34 29 22 Troponin I (<0.11 ng/ml) 0.02 Albumin (3.5 - 5.0 g/dL) 4.9 4.7 4.7 Coagulation PT (9.4 - 12.5 SEC) 10.6 INR (0.90 - 1.17) 1.01 Hematology CBC w Diff NO MAN DIFF REQ WBC (4.8 - 10.8 /CUMM) 14.8 H RBC (4.70 - 6.10 /CUMM) 4.96 Hgb (14.0 - 18.0 G/DL) 15.0 Hct (42 - 52 %) 44.6 MCV (80.0 - 94.0 FL) 89.8 MCH (27.0 - 31.0 PG) 30.3 RDW (11.5 - 14.5 %) 12.7 Plt Count (130 - 400 /CUMM) 292 MPV (7.4 - 10.4 FL) 8.7 Gran % (42.2 - 75.2 %) 81.6 H Lymphocytes % (20.5 - 51.1 %) 13.9 L Monocytes % (1.7 - 9.3 %) 4.3 Eosinophils % (0 - 5 %) 0 Basophils % (0.0 - 2.0 %) 0.2 Absolute Granulocytes (1.4 - 6.5 /CUMM) 12.0 H Absolute Lymphocytes (1.2 - 3.4 /CUMM) 2.1 Absolute Monocytes (0.10 - 0.60 /CUMM) 0.6 Absolute Eosinophils (0.0 - 0.7 /CUMM) 0 Absolute Basophils (0.0 - 0.2 /CUMM) 0 PUBS MCHC (33.0 - 37.0 G/DL) 33.7 Serology Lyme Disease Antibody Pending 08/02 08/02 2359 2100 Chemistry Sodium Cancelled Potassium Cancelled Chloride Cancelled Carbon Dioxide Cancelled Anion Gap Cancelled BUN Cancelled Creatinine Cancelled Glucose Cancelled Calcium Cancelled Phosphorus Cancelled Magnesium Cancelled Total Bilirubin Cancelled AST Cancelled ALT Cancelled Troponin I Cancelled Albumin Cancelled 08/02 Chemistry Sodium (137 - 145 mmol/L) 136 L Potassium (3.5 - 5.1 mmol/L) 5.4 H Chloride (98 - 107 mmol/L) 107 Carbon Dioxide (22 - 30 mmol/L) < 5 *L BUN (9 - 20 mg/dL) 9 Creatinine (0.7 - 1.2 mg/dL) 0.6 L Estimated GFR (>60 ml/min) > 60 Glucose (65 - 99 mg/dL) 214 H Lactic Acid (0.7 - 2.1 mmol/L) 2.6 H Calcium (8.4 - 10.2 mg/dL) 9.6 Phosphorus (2.5 - 4.5 mg/dL) 3.8 Magnesium (1.6 - 2.3 mg/dL) 1.9 Total Bilirubin (0.2 - 1.3 mg/dL) 0.5 AST (17 - 59 U/L) 21 ALT (21 - 72 U/L) 36 Troponin I (<0.11 ng/ml) < 0.01 Albumin (3.5 - 5.0 g/dL) 5.2 H Toxicology Urine Opiates Screen (>2000 NG/ML) 466.00 Methadone Screen (>300 NG/ML) > 735 H Barbiturate Screen (>200 NG/ML) < 60 Ur Phencyclidine Scrn (>25 NG/ML) < 6.00 Amphetamines Screen (>1000 NG/ML) < 100 U Benzodiazepines Scrn (>200 NG/ML) < 85 Urine Cocaine Screen (>300 NG/ML) < 50 Urine Cannabis Screen (>50 NG/ML) 71.50 H Urines Urine Color (YEL,AMB,STR) STRAW Urine Clarity (CLEAR) CLEAR Urine pH (5.0 - 8.0) 5.5 Ur Specific [place] (1.001 - 1.035) >= 1.030 Urine Protein (NEG,<30 MG/DL) 100 H Urine Ketones (NEG) >=80 Urine Nitrite (NEG) NEG Urine Bilirubin (NEG) NEG Urine Urobilinogen (0.1 - 1.0 EU/dl) 0.2 Ur Leukocyte Esterase (NEG) NEG Ur Microscopic SEDIMENT EXAMINED Urine RBC (0 - 5 /HPF) 3-5 Ur Epithelial Cells (NONE,FEW) RARE Urine Hemoglobin (NEG) SMALL H Urine Glucose (N MG/DL) 250 H 06/02 06/02 06/02 1700 1700 1530 Blood Gas Bicarbonate Actual (22 - 26 MEQ/L) 5.6 L Mixed VBG pH (7.31 - 7.41 PH) 6.98 L Mixed VBG pCO2 (41 - 51 TORR) 25 L Mixed VBG O2 Saturation (35 - 45 TORR) 64 H P-50 (Temp Corrected) 97.7 Carboxyhemoglobin (1.5 - 5.0 %) 0.7 L O2 Concentration % RA Temperature (97.0 - 100.0 FARH) 97.7 O2 Delivery Method RA Chemistry Sodium (137 - 145 mmol/L) 137 Potassium (3.5 - 5.1 mmol/L) 5.6 H Chloride (98 - 107 mmol/L) 105 Carbon Dioxide (22 - 30 mmol/L) < 5 *L Anion Gap (5 - 16) 27.76838 H BUN (9 - 20 mg/dL) 9 Creatinine (0.7 - 1.2 mg/dL) 0.6 L Estimated GFR (>60 ml/min) > 60 Glucose (65 - 99 mg/dL) 249 H Hemoglobin A1c (4.2 - 5.8 %) 17.7 H Calcium (8.4 - 10.2 mg/dL) 9.0 Phosphorus (2.5 - 4.5 mg/dL) 4.2 Magnesium (1.6 - 2.3 mg/dL) 2.0 Total Bilirubin (0.2 - 1.3 mg/dL) 0.4 AST (17 - 59 U/L) 20 ALT (21 - 72 U/L) 32 Albumin (3.5 - 5.0 g/dL) 5.0 Hematology CBC w Diff NO MAN DIFF REQ WBC (4.8 - 10.8 /CUMM) 21.5 H RBC (4.70 - 6.10 /CUMM) 5.35 Hgb (14.0 - 18.0 G/DL) 16.1 Hct (42 - 52 %) 48.1 MCV (80.0 - 94.0 FL) 89.8 MCH (27.0 - 31.0 PG) 30.2 RDW (11.5 - 14.5 %) 12.9 Plt Count (130 - 400 /CUMM) 302 MPV (7.4 - 10.4 FL) 9.0 Gran % (42.2 - 75.2 %) 88.5 H Lymphocytes % (20.5 - 51.1 %) 7.8 L Monocytes % (1.7 - 9.3 %) 3.6 Eosinophils % (0 - 5 %) 0 Basophils % (0.0 - 2.0 %) 0.1 Absolute Granulocytes (1.4 - 6.5 /CUMM) 19.0 H Absolute Lymphocytes (1.2 - 3.4 /CUMM) 1.7 Absolute Monocytes (0.10 - 0.60 /CUMM) 0.8 H Absolute Eosinophils (0.0 - 0.7 /CUMM) 0 Absolute Basophils (0.0 - 0.2 /CUMM) 0 PUBS MCHC (33.0 - 37.0 G/DL) 33.6 Miscellaneous Phlebotomy Draw Site [place] 08/02 08/02 1359 1345 Chemistry Sodium (137 - 145 mmol/L) 133 L Potassium (3.5 - 5.1 mmol/L) 5.3 H Chloride (98 - 107 mmol/L) 98 Carbon Dioxide (22 - 30 mmol/L) < 5 *L Anion Gap (5 - 16) ND BUN (9 - 20 mg/dL) 12 Creatinine (0.7 - 1.2 mg/dL) 0.6 L Estimated GFR (>60 ml/min) > 60 BUN/Creatinine Ratio (7 - 25 %) 20.0 Glucose (65 - 99 mg/dL) 478 H Lactic Acid (0.7 - 2.1 mmol/L) 2.7 H Calcium (8.4 - 10.2 mg/dL) 10.2 Total Bilirubin (0.2 - 1.3 mg/dL) 0.6 AST (17 - 59 U/L) 20 ALT (21 - 72 U/L) 38 Alkaline Phosphatase (< 127 U/L) 187 H Troponin I (<0.11 ng/ml) < 0.01 Total Protein (6.3 - 8.2 g/dL) 9.1 H Albumin (3.5 - 5.0 g/dL) 5.4 H Globulin (1.9 - 4.2 gm/dL) 3.7 Albumin/Globulin Ratio (1.1 - 2.2 %) 1.5 Hematology CBC w Diff NO MAN DIFF REQ WBC (4.8 - 10.8 /CUMM) 11.3 H RBC (4.70 - 6.10 /CUMM) 5.41 Hgb (14.0 - 18.0 G/DL) 16.3 Hct (42 - 52 %) 48.2 MCV (80.0 - 94.0 FL) 89.1 MCH (27.0 - 31.0 PG) 30.0 RDW (11.5 - 14.5 %) 12.6 Plt Count (130 - 400 /CUMM) 299 MPV (7.4 - 10.4 FL) 9.1 Gran % (42.2 - 75.2 %) 83.0 H Lymphocytes % (20.5 - 51.1 %) 14.3 L Monocytes % (1.7 - 9.3 %) 2.2 Eosinophils % (0 - 5 %) 0.1 Basophils % (0.0 - 2.0 %) 0.4 Absolute Granulocytes (1.4 - 6.5 /CUMM) 9.4 H Absolute Lymphocytes (1.2 - 3.4 /CUMM) 1.6 Absolute Monocytes (0.10 - 0.60 /CUMM) 0.2 Absolute Eosinophils (0.0 - 0.7 /CUMM) 0 Absolute Basophils (0.0 - 0.2 /CUMM) 0 PUBS MCHC (33.0 - 37.0 G/DL) 33.7 Toxicology Acetone Level (NEGATIVE) Cancelled POSITIVE AT 1:8 DIL
[2016-08-03 16:00] VITALS: BP 132/60
[2016-08-04] VITALS: BP 124/80
[2016-08-04 05:07] LABS: ABSOLUTE BASOPHIL COUNT 0 /CUMM (0.0-0.2); ABSOLUTE EOSINOPHIL COUNT 0.1 /CUMM (0.0-0.7); ABSOLUTE GRANULOCYTE CT 3.7 /CUMM (1.4-6.5); ABSOLUTE LYMPH COUNT 2.1 /CUMM (1.2-3.4); ABSOLUTE MONOCYTE COUNT 0.6 /CUMM (0.10-0.60); BASOPHIL % 0.5 % (0.0-2.0); EOSINOPHIL % 1.5 % (0-5); GRANULOCYTE % 56.5 % (42.2-75.2); HEMATOCRIT 40.1 % (42-52); MEAN CORPUSCULAR HGB 30.4 PG (27.0-31.0); MEAN CORPUSCULAR HGB CONC 33.6 G/DL (33.0-37.0); MEAN CORPUSCULAR VOLUME 90.4 FL (80.0-94.0); MEAN PLATELET VOLUME 8.8 FL (7.4-10.4); PLATELET COUNT 231 /CUMM (130-400); RBC DISTRIBUTION WIDTH 13.2 % (11.5-14.5); RED BLOOD CELL CT 4.43 /CUMM (4.70-6.10)
[2016-08-04 05:25] LABS: WHITE BLOOD CELL COUNT 6.5 /CUMM (4.8-10.8)
[2016-08-04 08:00] VITALS: BP 120/80
--- NOTE | 2016-08-04 08:11 | PN- Resident CRCU ---
Subjective HPI/CRCU Issues: Patient seen and examined at bedside this AM. He was laying comfortably in bed in no acute distress. Patient reported he wanted to sign out AMA but would wait until after lunch to make his final decision as he feels well, denies fever, chills, chest pain, nausea or vomiting. Around 2 PM, patient notified myself and my senior resident Dr. Naeem Garcia MD that he wanted to sign out AMA. ALL risks were discussed with patient and he acknowledged awareness but still wanted to sign out AMA. AMA paperwork signed and patient discharged after attending physician Dr. Leilani MD made aware. 24 Hour Events: Vital signs last 24 hours: T 97.7-99.0, HR 72-90, RR 14-24, BP 112-156/60-97, O2 88-100% on RA. Total intake last 24 hours: 3953 cc Total output last 24 hours: 2100.4 cc Objective Vital Signs & I&O Last 8 Hrs of Vitals and I&O: Intake & Output 08/04 1600 Intake Total 640 Output Total 2000 Balance -1360 Intake, IV 0 Intake, Oral 640 Output, Urine 2000 T 97.7-99.0, HR 72-90, RR 14-24, BP 112-156/60-97, O2 88-100% on RA. Exam General Appearance: well developed/nourished, no apparent distress, alert, awake , comfortable Head: atraumatic, normal appearance Ears, Nose, Throat: normal pharynx, moist mucus membranes Neck: normal inspection, supple Respiratory: normal breath sounds, chest non-tender, no respiratory distress Cardiovascular: regular rate/rhythm Gastrointestinal: normal bowel sounds, soft, non-tender, no organomegaly Extremities: normal inspection, normal range of motion Cranial Nerves: normal hearing, normal speech, PERRL Skin: intact, normal color, warm/dry Nutrition Nutrition: P.O. diet Current Medications: Current Medications Sig/Jenni Start time Last Medication Dose Route Stop Time Status Admin Acetaminophen 325 MG Q6P PRN 08/02 1615 AC PO Enoxaparin Sodium 40 MG DAILY 08/02 1601 AC SC Insulin Aspart 0 AT BEDTIME 08/04 2200 AC SC Insulin Aspart 0 TIDAC 08/04 0800 AC 08/04 SC 1150 Insulin Detemir 20 UNITS BID 08/04 0430 AC 08/04 SC 0427 Insulin Human Regular 100 UNIT Q24H 08/02 1445 DC 08/03 Sodium Chloride 100 ML IV 1300 Lorazepam 0.25 MG Q8 PRN 08/03 1230 AC PO 08/10 1229 Methadone HCl 45 MG ONCE ONE 08/04 1430 DC / PO 08/04 1431 1433 Methadone HCl 45 MG BID 08/04 1000 DC 08/04 PO 0913 Oxycodone HCl 5 MG Q6P PRN 08/02 1615 AC PO Oxycodone/ 2 TAB Q6P PRN 08/02 1615 AC 08/03 Acetaminophen PO 0003 Potassium Chloride 40 MEQ ONCE ONE 08/04 0845 DC 08/04 PO 08/04 0846 0913 Potassium Chloride 20 MEQ Q13H 08/04 0000 DC Dextrose/Sodium 1,000 ML IV Chloride Potassium Chloride 20 MEQ Q8H 08/03 1245 DC 08/03 Dextrose/Sodium 1,000 ML IV 2345 Chloride Trimethobenzamide HCl 200 MG 4 TIMES/DAY PRN 08/02 1800 AC 08/03 IM 0751 Impression/Plan Impression/Problem List Impression: Mr. Mendez is a 25 year old male with PMH asthma, T1DM and pneumomediastinum with multiple previous admissionts for DKA who was admitted to the ICU with DKA. The patient remains in the ICU and the following is the management: Respiratory: Stable. Saturating well on room air with no respiratory distress. Continue to monitor vital signs per protocol. ID: No evidence of infection. Remains afebrile. On admission, leukocytosis without bandemia likely reactive secondary to DKA. WBC count improved from 14.8 yesterday to 6.5 today. CXR with no evidence of pneumonia. CT Abdomen/Pelvis with no findings concerning for infection. Cardiovascular: #Prolonged QTc: QTC has gradually increased from 490 on admission to 567 yesterday afternoon. Although patient did receive 4 mg of IV Zofran on admission , this would not explain the significant increase. Although methadone can cause QTc prolongation, per Dr. Faustino MD at the [facility] where patient gets his methadone, this is unlikely to cause such a drastic prolongation of QTc in a young patient. Also QTc uptrended this admission despite patient not receiving any methadone during this time which would argue against methadone as the culprit. Most likely etiology for the QTc prolongation is DKA and the associated electrolyte abnormalities. * Monitor QTc frequently by checking EKGs at least daily. * Avoid QTC prolonging medications. * Order methadone 45 mg PO BID #Hypertension: * IMPROVING * BP elevated to a maximum of 181/89 6/, however BP has improved and is currently normal. Hypertension likely secondary to acute stress in the setting of DKA. * Continue to monitor BP. * DC IVF today as patient has appropriate PO intake Hematology: H/H stable. No evidence of bleeding. Metabolic: #DKA: Etiology unclear. CXR and CT Abdomen/Pelvis with IV Contrast unremarkable. Anion gap has closed on insulin drip and patient now on SC insulin. Acidosis has improved but bicarbonate remains low, most recent value 19. Hyperkalemia has resolved. Patient is hyponatremic with Na in the low 130s. * Endocrinology following. Appreciate their recs. * Levemir 20 U SC BID * Adjust NSS TIDAC/HS per endo recommendations * IVF have been discontinued * Tigan 200 mg IM QID PRN for nausea/vomiting. Avoid Zofran in the setting of prolonged QTC. * Monitor I/Os. 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 Harmon of [facility] contacted for recommendations on methadone dosing in the setting of prolonged QTc. Per her recommendations, methadone dose was changed to 45 mg PO BID with plans to monitor QTc frequently and adjust dosing as tolerated. OK to adjust methadone dose on discharge per Dr. Harmon, who is requesting the discharge summary to be faxed to her at . * Will discharge patient with instructions to take 45 mg PO BID and follow up with Dr. Harmon as soon as possible #Anxiety: Likely secondary to opiate withdrawal as patient went 2 days without methadone. Denies history of depression or anxiety. * Psychiatry following. Appreciate their recs. * No indication for CBT or SSRI at this time per psychiatry. * Administer Ativan 0.25 mg PO Q8H PRN only for severe anxiety interfering with care. * Methadone resumed per above. Skin: No active issues. DVT/Prophylaxis: early ambulation low risk. Code Status: Full Code Problem List: 1. Methadone use 2. Opiate dependence 3. Nicotine dependence 4. Anxiety 5. DKA (diabetic ketoacidoses) 6. Smoker Pain Ratin Tomorrow's Labs & Rationales: None, patient signing out AMA. Plan DVT/Prophylaxis: early ambulation low risk Code Status: Full Code
--- NOTE | 2016-08-04 10:13 | PN- Pulmonary ---
Subjective HPI/Critical Care Issues: Doing well Eating No sig issues Says he has improved Objective Current Medications: Current Medications Sig/Jenni Start time Last Medication Dose Route Stop Time Status Admin Acetaminophen 325 MG Q6P PRN 08/02 1615 AC PO Enoxaparin Sodium 40 MG DAILY 08/02 1601 AC SC Insulin Aspart 0 TIDAC 08/04 0800 AC 08/04 SC 0811 Insulin Detemir 20 UNITS BID 08/04 0430 AC 08/04 SC 0427 Insulin Human Regular 100 UNIT Q24H 08/02 1445 DC 08/03 Sodium Chloride 100 ML IV 1300 Lorazepam 0.25 MG Q8 PRN 08/03 1230 AC PO 08/10 1229 Methadone HCl 90 MG DAILY 08/04 1000 DC PO Methadone HCl 45 MG BID 08/04 1000 AC 08/04 PO 0913 Methadone HCl 110 MG DAILY 08/03 1100 DC 08/03 PO 1206 Oxycodone HCl 5 MG Q6P PRN 08/02 1615 AC PO Oxycodone/ 2 TAB Q6P PRN 08/02 1615 AC 08/03 Acetaminophen PO 0003 Potassium Chloride 40 MEQ ONCE ONE 08/04 0845 DC 08/04 PO 08/04 0846 0913 Potassium Chloride 20 MEQ Q13H 08/04 0000 DC Dextrose/Sodium 1,000 ML IV Chloride Potassium Chloride 20 MEQ Q8H 08/03 1245 DC 08/03 Dextrose/Sodium 1,000 ML IV 2345 Chloride Potassium Chloride 20 MEQ Q8H 08/03 0330 DC 08/03 Dextrose/Sodium 1,000 ML IV 1114 Chloride Trimethobenzamide HCl 200 MG 4 TIMES/DAY PRN 08/02 1800 AC 08/03 IM 0751 Laboratory Tests 08/04 08/04 08/03 08/03 0545 0405 2230 1640 Chemistry Sodium (137 - 145 mmol/L) 134 L 136 L 132 L 132 L Potassium (3.5 - 5.1 mmol/L) 3.5 5.8 H 3.8 4.2 Chloride (98 - 107 mmol/L) 107 114 H 106 107 Carbon Dioxide (22 - 30 mmol/L) 19 L 16 L 18 L 13 L Anion Gap (5 - 16) 7 5 9 12 BUN (9 - 20 mg/dL) 8 L 7 L 6 L 6 L Creatinine (0.7 - 1.2 mg/dL) 0.5 L 0.4 L 0.6 L 0.5 L Estimated GFR (>60 ml/min) > 60 > 60 > 60 > 60 Glucose (65 - 99 mg/dL) 253 H 649 *H 268 H 168 H Calcium (8.4 - 10.2 mg/dL) 8.9 7.6 L 8.7 9.2 Phosphorus (2.5 - 4.5 mg/dL) 2.0 L 1.7 L 1.9 L 2.7 Magnesium (1.6 - 2.3 mg/dL) 2.0 1.7 1.8 1.9 Total Bilirubin (0.2 - 1.3 mg/dL) 0.4 0.6 0.4 0.5 AST (17 - 59 U/L) 25 21 25 30 ALT (21 - 72 U/L) 26 29 27 22 Albumin (3.5 - 5.0 g/dL) 3.2 L 2.7 L 3.4 L 4.0 Hematology CBC w Diff NO MAN DIFF REQ WBC (4.8 - 10.8 /CUMM) 6.5 RBC (4.70 - 6.10 /CUMM) 4.43 L Hgb (14.0 - 18.0 G/DL) 13.5 L Hct (42 - 52 %) 40.1 L MCV (80.0 - 94.0 FL) 90.4 MCH (27.0 - 31.0 PG) 30.4 RDW (11.5 - 14.5 %) 13.2 Plt Count (130 - 400 /CUMM) 231 MPV (7.4 - 10.4 FL) 8.8 Gran % (42.2 - 75.2 %) 56.5 Lymphocytes % (20.5 - 51.1 %) 32.9 Monocytes % (1.7 - 9.3 %) 8.6 Eosinophils % (0 - 5 %) 1.5 Basophils % (0.0 - 2.0 %) 0.5 Absolute Granulocytes (1.4 - 6.5 /CUMM) 3.7 Absolute Lymphocytes (1.2 - 3.4 /CUMM) 2.1 Absolute Monocytes (0.10 - 0.60 /CUMM) 0.6 Absolute Eosinophils (0.0 - 0.7 /CUMM) 0.1 Absolute Basophils (0.0 - 0.2 /CUMM) 0 PUBS MCHC (33.0 - 37.0 G/DL) 33.6 06 0608/03 1120 0530 0130 0130 Chemistry Sodium (137 - 145 mmol/L) 130 L 133 L 131 L Potassium (3.5 - 5.1 mmol/L) 4.3 4.7 5.1 Chloride (98 - 107 mmol/L) 102 104 104 Carbon Dioxide (22 - 30 mmol/L) 10 L 9 *L < 5 *L Anion Gap (5 - 16) 18 H 20 H 22 H BUN (9 - 20 mg/dL) 6 L 7 L 7 L Creatinine (0.7 - 1.2 mg/dL) 0.5 L 0.6 L 0.6 L Estimated GFR (>60 ml/min) > 60 > 60 > 60 Glucose (65 - 99 mg/dL) 194 H 206 H 261 H Lactic Acid (0.7 - 2.1 mmol/L) 1.4 Calcium (8.4 - 10.2 mg/dL) 9.7 9.3 9.1 Phosphorus (2.5 - 4.5 mg/dL) 2.4 L 2.9 2.7 Magnesium (1.6 - 2.3 mg/dL) 1.9 1.8 1.7 Total Bilirubin (0.2 - 1.3 mg/dL) 0.6 0.5 1.0 AST (17 - 59 U/L) 32 25 29 ALT (21 - 72 U/L) 34 29 22 Troponin I (<0.11 ng/ml) 0.02 Albumin (3.5 - 5.0 g/dL) 4.9 4.7 4.7 Coagulation PT (9.4 - 12.5 SEC) 10.6 INR (0.90 - 1.17) 1.01 Hematology CBC w Diff NO MAN DIFF REQ WBC (4.8 - 10.8 /CUMM) 14.8 H RBC (4.70 - 6.10 /CUMM) 4.96 Hgb (14.0 - 18.0 G/DL) 15.0 Hct (42 - 52 %) 44.6 MCV (80.0 - 94.0 FL) 89.8 MCH (27.0 - 31.0 PG) 30.3 RDW (11.5 - 14.5 %) 12.7 Plt Count (130 - 400 /CUMM) 292 MPV (7.4 - 10.4 FL) 8.7 Gran % (42.2 - 75.2 %) 81.6 H Lymphocytes % (20.5 - 51.1 %) 13.9 L Monocytes % (1.7 - 9.3 %) 4.3 Eosinophils % (0 - 5 %) 0 Basophils % (0.0 - 2.0 %) 0.2 Absolute Granulocytes (1.4 - 6.5 /CUMM) 12.0 H Absolute Lymphocytes (1.2 - 3.4 /CUMM) 2.1 Absolute Monocytes (0.10 - 0.60 /CUMM) 0.6 Absolute Eosinophils (0.0 - 0.7 /CUMM) 0 Absolute Basophils (0.0 - 0.2 /CUMM) 0 PUBS MCHC (33.0 - 37.0 G/DL) 33.7 Serology Lyme Disease Antibody Pending 08/02 08/02 2359 2100 Chemistry Sodium Cancelled Potassium Cancelled Chloride Cancelled Carbon Dioxide Cancelled Anion Gap Cancelled BUN Cancelled Creatinine Cancelled Glucose Cancelled Calcium Cancelled Phosphorus Cancelled Magnesium Cancelled Total Bilirubin Cancelled AST Cancelled ALT Cancelled Troponin I Cancelled Albumin Cancelled 08/02 Chemistry Sodium (137 - 145 mmol/L) 136 L Potassium (3.5 - 5.1 mmol/L) 5.4 H Chloride (98 - 107 mmol/L) 107 Carbon Dioxide (22 - 30 mmol/L) < 5 *L BUN (9 - 20 mg/dL) 9 Creatinine (0.7 - 1.2 mg/dL) 0.6 L Estimated GFR (>60 ml/min) > 60 Glucose (65 - 99 mg/dL) 214 H Lactic Acid (0.7 - 2.1 mmol/L) 2.6 H Calcium (8.4 - 10.2 mg/dL) 9.6 Phosphorus (2.5 - 4.5 mg/dL) 3.8 Magnesium (1.6 - 2.3 mg/dL) 1.9 Total Bilirubin (0.2 - 1.3 mg/dL) 0.5 AST (17 - 59 U/L) 21 ALT (21 - 72 U/L) 36 Troponin I (<0.11 ng/ml) < 0.01 Albumin (3.5 - 5.0 g/dL) 5.2 H Toxicology Urine Opiates Screen (>2000 NG/ML) 466.00 Methadone Screen (>300 NG/ML) > 735 H Barbiturate Screen (>200 NG/ML) < 60 Ur Phencyclidine Scrn (>25 NG/ML) < 6.00 Amphetamines Screen (>1000 NG/ML) < 100 U Benzodiazepines Scrn (>200 NG/ML) < 85 Urine Cocaine Screen (>300 NG/ML) < 50 Urine Cannabis Screen (>50 NG/ML) 71.50 H Urines Urine Color (YEL,AMB,STR) STRAW Urine Clarity (CLEAR) CLEAR Urine pH (5.0 - 8.0) 5.5 Ur Specific Allison (1.001 - 1.035) >= 1.030 Urine Protein (NEG,<30 MG/DL) 100 H Urine Ketones (NEG) >=80 Urine Nitrite (NEG) NEG Urine Bilirubin (NEG) NEG Urine Urobilinogen (0.1 - 1.0 EU/dl) 0.2 Ur Leukocyte Esterase (NEG) NEG Ur Microscopic SEDIMENT EXAMINED Urine RBC (0 - 5 /HPF) 3-5 Ur Epithelial Cells (NONE,FEW) RARE Urine Hemoglobin (NEG) SMALL H Urine Glucose (N MG/DL) 250 H 06/02 06/02 06/02 1700 1700 1530 Blood Gas Bicarbonate Actual (22 - 26 MEQ/L) 5.6 L Mixed VBG pH (7.31 - 7.41 PH) 6.98 L Mixed VBG pCO2 (41 - 51 TORR) 25 L Mixed VBG O2 Saturation (35 - 45 TORR) 64 H P-50 (Temp Corrected) 97.7 Carboxyhemoglobin (1.5 - 5.0 %) 0.7 L O2 Concentration % RA Temperature (97.0 - 100.0 FARH) 97.7 O2 Delivery Method RA Chemistry Sodium (137 - 145 mmol/L) 137 Potassium (3.5 - 5.1 mmol/L) 5.6 H Chloride (98 - 107 mmol/L) 105 Carbon Dioxide (22 - 30 mmol/L) < 5 *L Anion Gap (5 - 16) 27.73014 H BUN (9 - 20 mg/dL) 9 Creatinine (0.7 - 1.2 mg/dL) 0.6 L Estimated GFR (>60 ml/min) > 60 Glucose (65 - 99 mg/dL) 249 H Hemoglobin A1c (4.2 - 5.8 %) 17.7 H Calcium (8.4 - 10.2 mg/dL) 9.0 Phosphorus (2.5 - 4.5 mg/dL) 4.2 Magnesium (1.6 - 2.3 mg/dL) 2.0 Total Bilirubin (0.2 - 1.3 mg/dL) 0.4 AST (17 - 59 U/L) 20 ALT (21 - 72 U/L) 32 Albumin (3.5 - 5.0 g/dL) 5.0 Hematology CBC w Diff NO MAN DIFF REQ WBC (4.8 - 10.8 /CUMM) 21.5 H RBC (4.70 - 6.10 /CUMM) 5.35 Hgb (14.0 - 18.0 G/DL) 16.1 Hct (42 - 52 %) 48.1 MCV (80.0 - 94.0 FL) 89.8 MCH (27.0 - 31.0 PG) 30.2 RDW (11.5 - 14.5 %) 12.9 Plt Count (130 - 400 /CUMM) 302 MPV (7.4 - 10.4 FL) 9.0 Gran % (42.2 - 75.2 %) 88.5 H Lymphocytes % (20.5 - 51.1 %) 7.8 L Monocytes % (1.7 - 9.3 %) 3.6 Eosinophils % (0 - 5 %) 0 Basophils % (0.0 - 2.0 %) 0.1 Absolute Granulocytes (1.4 - 6.5 /CUMM) 19.0 H Absolute Lymphocytes (1.2 - 3.4 /CUMM) 1.7 Absolute Monocytes (0.10 - 0.60 /CUMM) 0.8 H Absolute Eosinophils (0.0 - 0.7 /CUMM) 0 Absolute Basophils (0.0 - 0.2 /CUMM) 0 PUBS MCHC (33.0 - 37.0 G/DL) 33.6 Miscellaneous Phlebotomy Draw Site [place] 08/02 08/02 1359 1345 Chemistry Sodium (137 - 145 mmol/L) 133 L Potassium (3.5 - 5.1 mmol/L) 5.3 H Chloride (98 - 107 mmol/L) 98 Carbon Dioxide (22 - 30 mmol/L) < 5 *L Anion Gap (5 - 16) ND BUN (9 - 20 mg/dL) 12 Creatinine (0.7 - 1.2 mg/dL) 0.6 L Estimated GFR (>60 ml/min) > 60 BUN/Creatinine Ratio (7 - 25 %) 20.0 Glucose (65 - 99 mg/dL) 478 H Lactic Acid (0.7 - 2.1 mmol/L) 2.7 H Calcium (8.4 - 10.2 mg/dL) 10.2 Total Bilirubin (0.2 - 1.3 mg/dL) 0.6 AST (17 - 59 U/L) 20 ALT (21 - 72 U/L) 38 Alkaline Phosphatase (< 127 U/L) 187 H Troponin I (<0.11 ng/ml) < 0.01 Total Protein (6.3 - 8.2 g/dL) 9.1 H Albumin (3.5 - 5.0 g/dL) 5.4 H Globulin (1.9 - 4.2 gm/dL) 3.7 Albumin/Globulin Ratio (1.1 - 2.2 %) 1.5 Hematology CBC w Diff NO MAN DIFF REQ WBC (4.8 - 10.8 /CUMM) 11.3 H RBC (4.70 - 6.10 /CUMM) 5.41 Hgb (14.0 - 18.0 G/DL) 16.3 Hct (42 - 52 %) 48.2 MCV (80.0 - 94.0 FL) 89.1 MCH (27.0 - 31.0 PG) 30.0 RDW (11.5 - 14.5 %) 12.6 Plt Count (130 - 400 /CUMM) 299 MPV (7.4 - 10.4 FL) 9.1 Gran % (42.2 - 75.2 %) 83.0 H Lymphocytes % (20.5 - 51.1 %) 14.3 L Monocytes % (1.7 - 9.3 %) 2.2 Eosinophils % (0 - 5 %) 0.1 Basophils % (0.0 - 2.0 %) 0.4 Absolute Granulocytes (1.4 - 6.5 /CUMM) 9.4 H Absolute Lymphocytes (1.2 - 3.4 /CUMM) 1.6 Absolute Monocytes (0.10 - 0.60 /CUMM) 0.2 Absolute Eosinophils (0.0 - 0.7 /CUMM) 0 Absolute Basophils (0.0 - 0.2 /CUMM) 0 PUBS MCHC (33.0 - 37.0 G/DL) 33.7 Toxicology Acetone Level (NEGATIVE) Cancelled POSITIVE AT 1:8 DIL Microbiology Date/Time Procedure - Status Source Growth 08/02 1700 Surveillance Culture - COMP UPPER RESP 08/02 1644 Surveillance Culture - CAN GI Cancelled: SPECIMEN NOT RECEIVED IN LABORATORY Vital Signs & I&O Last 24 Hrs of Vitals and I&O: Vital Signs Date Time Temp Pulse Resp B/P B/P Pulse O2 O2 Flow FiO2 Mean Ox Delivery Rate 08/04 0800 97.8 76 13 120/80 96 Room Air 06/ 0400 95 Room Air 06/04 0000 95 Room Air 06/04 0000 98.7 85 16 124/80 95 Room Air 06/03 2000 96 06/03 1600 97.8 91 16 132/60 96 Room Air Room Air 06/03 1200 98 Room Air Intake & Output /04 1600 06/04 0800 06/04 0000 Intake Total 1299 1600 Output Total 1100 Balance 1299 500 Intake, IV 499 880 Intake, Oral 800 720 Number 1 Bowel Movements Output, Urine 1100 Impression/Plan Impression/Plan Impression/Plan: Physical Exam General Appearance Alert, Oriented X3, Moderate Distress Skin No Rashes, No Breakdown Skin Temp/Moisture Exam: Warm/Dry Sepsis Skin Exam (color): Normal for Ethnicity HEENT Atraumatic, PERRLA, EOMI, MUCOUS MEMBRANES DRY Neck Supple, No JVD, No thryomegaly Lymphatic Cervical nl Cardiovascular Regular Rate, Normal S1, Normal S2 Lungs Clear to Auscultation, Normal Air Movement Abdomen Normal Bowel Sounds, Soft, DIFFUSE TENDERNESS Neurological Normal Speech, Normal Tone Extremities No Clubbing, No Cyanosis, No Edema, Normal Pulses Vascular Normal Pulses EKG qtc prolongation IMPRESSION Pt with sig diabetes with asthma now with DKA Resolved SIg abd pain and retching from DKA and prob sub withdrawal, now improving Polysub abuse Prolonged qtc Generalized anxiety Smoker Methadone dep, with previous polysubstance abuse RECOMMENDATION DC ivf if ok with endo COnt Insulin per endo Frequent sugar monitoring Continue to monitor QTC Continue methadone Psychiatry consult noted Continue Lovenox Replace potassium to more than four Reduce oxygen IF stable can go to the floor with tele
--- NOTE | 2016-08-04 10:45 | PN- Diabetes ---
Assessment/Plan Assessment: Patient is a 25-year-old male with past medical history of asthma, diabetes type 1, pneumomediastinum (treated at [facility] 5 months ago ),multiple admissions for DKA in the past who presented to the ED today for abdominal pain, nausea, vomiting for the last 2 days. He was admitted to ICU for DKA. His HbA1c was 17.7%. DKA resolved. He was put on Levemir 20 units twice a day, Novolog coverage before meals. His FSGs were 257, 229, 225 and 280. Plan: 1. continue Levemir 20 units twice a day; 2. adjust Novolog coverage before meals and add on Novolog coverage at bedtime; detail see the inpatient DM orders; 3. monitor FSGs and electrolytes. will follow. Inpatient Diabetes Orders Before Each Meal: Bolus Insulin: Novolog < 80 mg/dl: no coverage 80-100 mg/dl: 7 units 101-120 mg/dl: 7 units 121-150 mg/dl: 7 units 151-200 mg/dl: 9 units 201-250 mg/dl: 11 units 251-300 mg/dl: 13 units 301-350 mg/dl: 15 units 351-400 mg/dl: 17 units > 400 mg/dl: 19 units Bedtime: Bolus Insulin: Novolog < 80 mg/dl: no coverage 80-100 mg/dl: no coverage 101-120 mg/dl: no coverage 121-150 mg/dl: no coverage 151-200 mg/dl: no covearge 201-250 mg/dl: no coverage 251-300 mg/dl: 2 units 301-350 mg/dl: 3 units 351-400 mg/dl: 4 units > 400 mg/dl: 5 units Subjective Subjective: He feels better this morning. Objective Last 24 Hrs of Vital Signs/I&O Vital Signs Date Time Temp Pulse Resp B/P B/P Pulse O2 O2 Flow FiO2 Mean Ox Delivery Rate / 0800 97.8 76 13 120/80 96 Room Air 06/04 0400 95 Room Air 06/04 0000 95 Room Air 06/04 0000 98.7 85 16 124/80 95 Room Air 06/03 2000 96 06/03 1600 97.8 91 16 132/60 96 Room Air Room Air 06/03 1200 98 Room Air Intake & Output /04 1600 06/04 0800 06/04 0000 Intake Total 1299 1600 Output Total 1100 Balance 1299 500 Intake, IV 499 880 Intake, Oral 800 720 Number 1 Bowel Movements Output, Urine 1100 Findings Pertinent Lab/Arturo Results: Laboratory Tests 08/04 08/04 08/03 08/03 0545 0405 2230 1640 Chemistry Sodium (137 - 145 mmol/L) 134 L 136 L 132 L 132 L Potassium (3.5 - 5.1 mmol/L) 3.5 5.8 H 3.8 4.2 Chloride (98 - 107 mmol/L) 107 114 H 106 107 Carbon Dioxide (22 - 30 mmol/L) 19 L 16 L 18 L 13 L Anion Gap (5 - 16) 7 5 9 12 BUN (9 - 20 mg/dL) 8 L 7 L 6 L 6 L Creatinine (0.7 - 1.2 mg/dL) 0.5 L 0.4 L 0.6 L 0.5 L Estimated GFR (>60 ml/min) > 60 > 60 > 60 > 60 Glucose (65 - 99 mg/dL) 253 H 649 *H 268 H 168 H Calcium (8.4 - 10.2 mg/dL) 8.9 7.6 L 8.7 9.2 Phosphorus (2.5 - 4.5 mg/dL) 2.0 L 1.7 L 1.9 L 2.7 Magnesium (1.6 - 2.3 mg/dL) 2.0 1.7 1.8 1.9 Total Bilirubin (0.2 - 1.3 mg/dL) 0.4 0.6 0.4 0.5 AST (17 - 59 U/L) 25 21 25 30 ALT (21 - 72 U/L) 26 29 27 22 Albumin (3.5 - 5.0 g/dL) 3.2 L 2.7 L 3.4 L 4.0 Hematology CBC w Diff NO MAN DIFF REQ WBC (4.8 - 10.8 /CUMM) 6.5 RBC (4.70 - 6.10 /CUMM) 4.43 L Hgb (14.0 - 18.0 G/DL) 13.5 L Hct (42 - 52 %) 40.1 L MCV (80.0 - 94.0 FL) 90.4 MCH (27.0 - 31.0 PG) 30.4 RDW (11.5 - 14.5 %) 13.2 Plt Count (130 - 400 /CUMM) 231 MPV (7.4 - 10.4 FL) 8.8 Gran % (42.2 - 75.2 %) 56.5 Lymphocytes % (20.5 - 51.1 %) 32.9 Monocytes % (1.7 - 9.3 %) 8.6 Eosinophils % (0 - 5 %) 1.5 Basophils % (0.0 - 2.0 %) 0.5 Absolute Granulocytes (1.4 - 6.5 /CUMM) 3.7 Absolute Lymphocytes (1.2 - 3.4 /CUMM) 2.1 Absolute Monocytes (0.10 - 0.60 /CUMM) 0.6 Absolute Eosinophils (0.0 - 0.7 /CUMM) 0.1 Absolute Basophils (0.0 - 0.2 /CUMM) 0 PUBS MCHC (33.0 - 37.0 G/DL) 33.6 06/03 1120 Chemistry Sodium (137 - 145 mmol/L) 130 L Potassium (3.5 - 5.1 mmol/L) 4.3 Chloride (98 - 107 mmol/L) 102 Carbon Dioxide (22 - 30 mmol/L) 10 L Anion Gap (5 - 16) 18 H BUN (9 - 20 mg/dL) 6 L Creatinine (0.7 - 1.2 mg/dL) 0.5 L Estimated GFR (>60 ml/min) > 60 Glucose (65 - 99 mg/dL) 194 H Calcium (8.4 - 10.2 mg/dL) 9.7 Phosphorus (2.5 - 4.5 mg/dL) 2.4 L Magnesium (1.6 - 2.3 mg/dL) 1.9 Total Bilirubin (0.2 - 1.3 mg/dL) 0.6 AST (17 - 59 U/L) 32 ALT (21 - 72 U/L) 34 Albumin (3.5 - 5.0 g/dL) 4.9 Coagulation PT (9.4 - 12.5 SEC) 10.6 INR (0.90 - 1.17) 1.01
--- NOTE | 2016-08-04 11:35 | Event Note ---
Event Note Event Note: Resident statment: Naeem Garcia 11.30 AM, 08/04/16 Discussed the risks and benefits in detail with Mr. Mendez and his mother. Patient is agitated and attributes that to lower dose of methadone being provoided to him here at the hospital. Of note, patient's methadone dose was lowered recently, due to his prolonged Qtc. Explained in detail to the patient, risks of prolonged QTc and higher doses of methadone. He understands all the risks involved, and states that he will wait until 3 PM and if continues to feel agitated, will leave against medical advice. Patient is not depressed, able to make his own decisions and is mentally capable of signing out AMA, if he chooses to do so. EKG reviewed: SR, prolonged QTc.
[2016-08-04] MEDS ORDERED: METHADONE HCL10 M1 PO (14:26)
--- NOTE | 2016-08-04 14:29 | Patient Discharge Instructions ---
Discharge Instructions General Discharge Information You were seen/treated for: DKA Watch for these problems: DKA Chest pain Loss of consciousness Special Instructions: Left against medical advice Risk for recurrent DKA Prolonged QTc, risk for cardiac complications, while on Methadone. Discuss with [facility]. Diet Continue normal diet: No Recommended Diet: Diabetic Activity Full Activity/No Limits: Yes Acute Coronary Syndrome Inclusion Criteria At DC or during hospital stay patient has or had the following: ACS DIAGNOSIS No Discharge Core Measures Meds if any: Prescribed or Continued at Discharge Meds if any: NOT Prescribed or Continued at Discharge Congestive Heart Failure Inclusion Criteria At DC or during hospital stay patient has or had the following: CHF DIAGNOSIS No Discharge Core Measures Meds if any: Prescribed or Continued at Discharge Meds if any: NOT Prescribed or Continued at Discharge Cerebrovascular accident Inclusion Criteria At DC or during hospital stay patient has or had the following: CVA/TIA Diagnosis No Discharge Core Measures Meds if any: Prescribed or Continued at Discharge Meds if any: NOT Prescribed or Continued at Discharge Venous thromboembolism Inclusion Criteria VTE Diagnosis No VTE Type NONE VTE Confirmed by (Test) NONE Discharge Core Measures - Per Current guidelines, there needs to be overlap - treatment for the first 5 days of Warfarin therapy. - If discharged on Warfarin prior to 5 days of - overlap therapy, the patient will need to be - assessed for post discharge needs including - *Post discharge parental anticoagulation - *Warfarin and/or parental anticoagulation education - *Follow up date to check INR post discharge At least 5 days overlap therapy as Inpatient No Meds if any: Prescribed or Continued at Discharge Note: Overlap Therapy is Warfarin and Anticoagulant Meds if any: NOT Prescribed or Continued at Discharge
--- NOTE | 2016-08-04 14:54 | Discharge Summary ---
Visit Information Visit Dates Admission Date: 08/02/16 Discharge Date: 08/04/16 Hospital Course Course Attending Physician: BLADIMIR DAWSON,LAURA Nieto Primary Care Physician: MICKY DUKE MD Consulting Request: 1 Consulting Specialty: Endocrinology Consulting Physician: Dr. Leilani MD Reason for Consult: DKA Consulting Request: 2 Consulting Specialty: Psychiatry Consulting Physician: Dr Diana MD Reason for Consult: Anxiety Hospital Course: Mr. Mendez is a 25 year old with past medical history of type 1 diabetes mellitus, multiple previous admissions for DKA, asthma, methadone dependance, and history of pneumomediastinum who presented to [facility] on 08/02/16 with chief complaint abdominal pain, nausea and vomiting for 2 days. His mother reported that Steve had been acting weirdly for the past 1 week with increased anxiety, a change in behavior and extremely restlessness. In the ED: Vital signs showed T 97.4, HR 95, RR 22, BP 149/90, O2 sat 99% on room air. Labs were significant for: WBC 11.3, H&H 16.3/48.2, Na 133, K 5.3, Cl 98, HCO3 < 5, anion gap 30 (calculated), BUN 12, cre0.6, glu 478, calcium 10.2, normal LFTs , alkaline phosphatase 187. Utox positive acetone level. CXR showed no acute pulmonary process. Head CT was negative for acute intracranial injury. Abdomen/pelvis CT showed no acute findings. Patient was admitted to the ICU for DKA and the following was the management: 1. Diabetic ketoacidosis in the setting of type 1 diabetes mellitus: Patient has a history of uncontrolled type 1 diabetes with HgA1C in February 2016 elevated to 19.1. Endocrinology consult obtained from admission. Patient was started on an IV insulin drip and IV normal saline for hydration while NPO. Fingersticks were obtained Q1 hour and once glucose levels less than 250, Steve was started on D5-1/2NS with KCL replenishment. Labs were trended frequently and electrolytes repleted as needed. Once bicarbonate reached 18 and anion gap normalized, patient was transitioned to SC levemir 20 U BID and a novolog sliding scale at meal time and bed time. On 08/04/16, Steve signed out AMA after several physicians attempted to highlight the risks of signing out AMA. He was discharged on his home diabetic regimen with instructions to take medications as directed and to follow up with his PCP/train clerk as soon as possible upon discharge. 2. Hyperkalemia: Falsly elevated K of 5.3 secondary to ketoacidosis. Patient started on an insulin drip and labs were monitored frequently. K level quickly returned to normal and repletion of potassium was done via IVF and oral route. 3. Methadone dependance with history of polysubstance abuse: Patient's methadone dose was confirmed with Dr. Faustino MD. However, noted QTC prolongation on EKG resulted in changing methadone dose to 45 mg PO BID as directed by Dr. Faustino MD. Patient was instructed to follow up at the methadone clinic for further continuation of methadone dosing and administration instructions. Patient should have his EKG monitored as an outpatient to monitor for any worsening. 4. Anxiety: Patient noted severe anxiety on the days leading up to admission and thus a psychiatric consult was obtained. Dr. Diana MD suggested that given the low severity of his anxiety and the capability of the patient to use redirection/coping skills, would only treat when interfering with care would very low-dose ativan at 0.25mg PO q8hrs PRN severe anxiety. Patient's anxiety improved after restarting methadone and no further psychiatric issues noted. PCP should monitor for return of these symptoms and address psychiatric follow up as needed. 5. Tobacco abuse: Patient counseled on tobacco cessation. He was provided with a 21 mg nicotine patch daily. 6. Prolonged QTC: As noted above, patient's QTC was noted to be prolonged and methadone dose was adjusted to 45 mg PO BID after directed by Dr. Faustino MD. All QTC prolonging medications were avoided. Patient should have follow up EKG after discharge with PCP or at the methadone clinic. 7. Code: FULL 8. DVT Prophylaxis: Early ambulation. 9. Diet: Initially NPO, advanced to clear liquid and ultimately to consistent carbohtdrate (diabetic diet). 10. Chronic pain pathway with methadone. Complications: None. Allergies: Coded Allergies: dog dander (HIVES 09/16/15) Significant Procedures: CXR: IMPRESSION: No acute pulmonary process within the visualized portions of the bilateral lungs. A small portion of the lateral aspect of the right lung was not included in the [id number]. Abdominal/Pelvis CT: IMPRESSION: No acute findings of the abdomen or pelvis. No inflammatory changes. Head CT: IMPRESSION: No acute intracranial pathology. Disposition Summary Disposition Principal Diagnosis: DKA Additional Diagnosis: Polysubstance abuse Prolonged QTC Generalized anxiety Tobacco use Methadone dependance Discharge Disposition: left against medical adv Discharge Instructions General Discharge Information Code Status: Full Code Patient's Diet: Initially NPO which was transitioned to clear liquid and advanced to consistent carbohydrate 2. Patient's Activity: Self-limiting, as tolerated. Follow-Up Instructions/Appts: Please follow up with your PCP within 7 days of discharge. Please follow up with your train clerk within 7 days of discharge. Please take all medications as directed. All risks of leaving AMA discussed with patient and he acknowledged awareness. Medications at Discharge Discharge Medications: Stop taking the following medications: Methadone HCl (Methadone HCl) 10 MG/ML ORAL.CONC ORAL DAILY Continue taking these medications: Insulin Lispro (Humalog Kwikpen U-100) (Unknown Strength) INSULN.PEN Unknown Dose Inject into fatty tissue SEE SLIDING SCALE Qty = 15 Comments: 17UNITS OF NOVOLOG WITH LUNCH NEXT DOSE 08/04/16 WITH DINNER Insulin Glargine,Hum.rec.anlog (Lantus Solostar) 100 UNIT/ML (3 ML) INSULN.PEN 40 Unit Inject into fatty tissue DAILY Qty = 15 Comments: NEXT DOSE 08/04/16 BEFORE BED Copies To: Dr. Harmon; LEILANI DAWSON,MICKY Attending MD Review Statement Documenting Attending: BLADIMIR DAWSON,LAURA Nieto
== END 2016-08-04 14:56 | disposition left against medical advice (07) | DRG 420 ==
LOC: ERH 13:21 → ERHI 15:01 → CRI 15:01 → ENRESERV 16:06 → ENTRNSPT 16:35 → CRI 17:33
PROVIDERS: Dermatology; Emergency Medicine; Internal Medicine; Student in an Organized Health Care Education/Training Program; ADMIT Internal Medicine Pulmonary Disease
DX: E10.10 Type 1 diabetes mellitus with ketoacidosis without coma (principal); Z79.4 Long term (current) use of insulin; E87.5 Hyperkalemia; F11.20 Opioid dependence, uncomplicated; F41.1 Generalized anxiety disorder; F17.200 Nicotine dependence, unspecified, uncomplicated; J45.909 Unspecified asthma, uncomplicated; F19.10 Other psychoactive substance abuse, uncomplicated
CPT/HCPCS: 86618; CCU; 36415; 74177; 80307; 81001; 82436; 93005; 93010; 96361; 96374; 96375; 99291; J1170; J1650; J1815; J2405; J2550; J3250; J7042; S5012

== ENCOUNTER 2017-06-02 22:39 | Emergency (ER) | payer OTHER ==
[~2017-06-02 22:39] MED LIST changes: +CYCLOBENZAPRINE10 M1 PO; +HUMALOG KW100 UNIT/1 SC; +IBUPROFEN600 M1 PO; +LANTUS SOL100 UNIT/1 SC; +MECLIZINE HCL25 MG PO; +METHADONE HCL10 M1 PO; +MOBIC15 M1 PO; +SCOPOLAMINE1 EAC1 TOP; +ULTRAM50 M1 PO
--- NOTE | 2017-06-02 22:44 | ED GENERAL ADULT ---
History of Present Illness General Chief Complaint: General Adult Stated Complaint: BIBA, HIGH BS Source: patient, old records, EMS, police Exam Limitations: no limitations Vital Signs & Intake/Output Vital Signs & Intake/Output Vital Signs Date Time Temp Pulse Resp B/P B/P Pulse O2 O2 Flow FiO2 Mean Ox Delivery Rate 06/04 207 97.8 87 18 123/75 99 Room Air 06/02 2313 100 Room Air 06/022 98.4 90 18 139/85 100 Room Air Allergies Coded Allergies: dog dander (HIVES 02/25/17) Reconcile Medications Cyclobenzaprine HCl 10 MG TABLET 1 TAB PO QPM PRN muscle strain Ibuprofen 600 MG TABLET 1 TAB PO Q6PRN PRN pain with food Insulin Glargine,Hum.rec.anlog (Lantus Solostar) 100 UNIT/ML (3 ML) INSULN.PEN 40 UNIT SC DAILY DIABETES (Reported) Insulin Lispro (Humalog Kwikpen U-100) (Unknown Strength) INSULN.PEN (Unknown Dose) SC SEE SLIDING SCALE DIABETES (Reported) Meclizine HCl 25 MG TABLET 1 TAB PO TIDPRN PRN dizziness Meloxicam (Mobic) 15 MG TABLET 1 TAB PO DAILY PRN pain Ondansetron (Zofran Odt) 4 MG TAB.RAPDIS 1 TAB SL TID PRN nausea Scopolamine 1 MG/3 DAY PATCH.TD.3 1 PATCH TOP Q72 PRN dizziness Tramadol HCl (Ultram) 50 MG TABLET 1-2 TAB PO Q6PRN PRN severe pain Triage Nurses Notes Reviewed? yes HPI: Patient was brought in in police custody from senior care. Patient has a history of diabetes. Patient is fearful that he is going into DKA. Patient states he did not take his Lantus at all today. Patient states he now feels very anxious and nauseous. There is no chest pain. There are no fevers or chills. There is no vomiting. There is no diarrhea. Patient denies any shortness of breath. Past History Travel History Traveled to [place] past 21 day No Medical History Any Pertinent Medical History? 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 Age 45. Thyroiditis FATHER (medical hx unknown - not seen x years.). Age 48. Hx Contributory? No Review of Systems Review of Systems Constitutional: Reports: no symptoms. EENTM: Reports: no symptoms. Respiratory: Reports: no symptoms. Cardiovascular: Reports: no symptoms. GI: Reports: see HPI, nausea. Genitourinary: Reports: no symptoms. Musculoskeletal: Reports: no symptoms. Skin: Reports: no symptoms. Neurological/Psychological: Reports: no symptoms. Hematologic/Endocrine: Reports: no symptoms. Immunologic/Allergic: Reports: no symptoms. All Other Systems: Reviewed and Negative Physical Exam Physical Exam General Appearance: well developed/nourished, alert, awake, anxious, mild distress Head: atraumatic, normal appearance Eyes: Bilateral: PERRL, EOMI. Ears, Nose, Throat: normal pharynx, normal ENT inspection, hearing grossly normal Neck: normal inspection, supple, full range of motion Respiratory: normal breath sounds, chest non-tender, no respiratory distress, lungs clear Cardiovascular: regular rate/rhythm, normal peripheral pulses Gastrointestinal: normal bowel sounds, soft, non-tender, no organomegaly Back: normal inspection, normal range of motion Extremities: normal inspection, normal capillary refill, normal range of motion, no edema Neurologic/Psych: no motor/sensory deficits, awake, alert, oriented x 3, normal mood/affect Skin: intact, normal color, warm/dry Core Measures ACS in differential dx? No CVA/TIA Diagnosis: No Sepsis Present: No Sepsis Focused Exam Completed? No Progress Differential Diagnoses I considered the following diagnoses in my evaluation of the patient: [DKA, ELECTROLYTE ABNORMALITY] Plan of Care: Orders Procedure Date/time Status EKG 06/02 2249 Active MIXED VENOUS BLOOD GAS (GEN) 06/02 2242 Complete URINE DRUGS OF ABUSE 06/02 2242 Complete URINALYSIS 06/02 2242 Complete ETHANOL 06/02 2242 Complete COMPREHENSIVE METABOLIC PANEL 06/02 2242 Complete CBC WITHOUT DIFFERENTIAL 06/02 2242 Complete ACETONE 06/02 2242 Complete Laboratory Tests 06/03/17 0100: Urine Opiates Screen 1995.00, Methadone Screen 412 H, Barbiturate Screen < 60, Ur Phencyclidine Scrn < 6.00, Amphetamines Screen < 100, U Benzodiazepines Scrn < 85, Urine Cocaine Screen < 50, Urine Cannabis Screen > 80.00 H, Urine Color STRAW, Urine Clarity CLEAR, Urine pH 7.0, Ur Specific [place] 1.010, Urine Protein NEG, Urine Ketones >=80, Urine Nitrite NEG, Urine Bilirubin NEG, Urine Urobilinogen 0.2, Ur Leukocyte Esterase NEG, Ur Microscopic EXAM NOT REQUIRED, Urine Hemoglobin NEG, Urine Glucose >=1000 H 06/02/17 2258: Bicarbonate Actual 27 H, Mixed VBG pH 7.39, Mixed VBG pCO2 46, Mixed VBG O2 Saturation 29 L, Carboxyhemoglobin 1.6, O2 Concentration % R/A, Phlebotomy Draw Site VENOUS 06/02/17 2255: Anion Gap 14, Estimated GFR > 60, BUN/Creatinine Ratio 22.0, Glucose 386 H, Calcium 9.5, Total Bilirubin 0.6, AST 15 L, ALT 17 L, Alkaline Phosphatase 168 H, Total Protein 7.4, Albumin 4.2, Globulin 3.2, Albumin/Globulin Ratio 1.3, CBC w Diff NO MAN DIFF REQ, RBC 4.75, MCV 90.2, MCH 29.7, MCHC 33.0, RDW 12.7, MPV 8.7, Gran % 87.3 H, Lymphocytes % 10.8 L, Monocytes % 1.7, Eosinophils % 0 , Basophils % 0.2, Absolute Granulocytes 9.4 H, Absolute Lymphocytes 1.2, Absolute Monocytes 0.2, Absolute Eosinophils 0, Absolute Basophils 0, Serum Alcohol < 10.0, Acetone Level POSITIVE AT 1:2 DIL Initial ED EKG: NSR, no ST T wave changes Prior EKG: unchanged Departure Departure Disposition: HOME OR SELF CARE Condition: Stable Clinical Impression Primary Impression: Hyperglycemia Referrals: Patient Has No Primary Care Dr (PCP/Family) Additional Instructions: RETURN IF SYMPTOMS WORSEN OR FOR ANY CONCERNS Departure Forms: Customer Survey General Discharge Information Critical Care Note Critical Care Note Critical Care Time: non-applicable Condition: Stable Clinical Impression Primary Impression: Hyperglycemia Referrals: Patient Has No Primary Care Dr (PCP/Family) Additional Instructions: RETURN IF SYMPTOMS WORSEN OR FOR ANY CONCERNS Departure Forms: Customer Survey General Discharge Information
[2017-06-02 23:08] LABS: ABSOLUTE BASOPHIL COUNT 0 /CUMM (0.0-0.2); ABSOLUTE EOSINOPHIL COUNT 0 /CUMM (0.0-0.7); ABSOLUTE GRANULOCYTE CT 9.4 /CUMM (1.4-6.5); ABSOLUTE LYMPH COUNT 1.2 /CUMM (1.2-3.4); ABSOLUTE MONOCYTE COUNT 0.2 /CUMM (0.10-0.60); BASOPHIL % 0.2 % (0.0-2.0); EOSINOPHIL % 0 % (0-5); HEMATOCRIT 42.8 % (42-52); MEAN CORPUSCULAR HGB 29.7 PG (27.0-31.0); MEAN CORPUSCULAR VOLUME 90.2 FL (80.0-94.0); MEAN PLATELET VOLUME 8.7 FL (7.4-10.4); PLATELET COUNT 326 /CUMM (130-400); RBC DISTRIBUTION WIDTH 12.7 % (11.5-14.5); RED BLOOD CELL CT 4.75 /CUMM (4.70-6.10); WHITE BLOOD CELL COUNT 10.8 /CUMM (4.8-10.8)
[2017-06-02 23:24] LABS: GRANULOCYTE % 87.3 % (42.2-75.2)
[2017-06-03 02:08] VITALS: BP 123/75
== END 2017-06-03 02:09 ==
LOC: ERH 22:39
PROVIDERS: Emergency Medicine
DX: E10.65 Type 1 diabetes mellitus with hyperglycemia (principal)
CPT/HCPCS: 80307; 81003; 93005; 93010; 96372; 96374; G0480; J2405

== ENCOUNTER 2017-07-03 15:11 | Emergency (ER) | payer OTHER ==
--- NOTE | 2017-07-03 16:58 | ED GENERAL ADULT ---
History of Present Illness General Chief Complaint: Upper Extremity Problem Stated Complaint: R ARM NUMBNESS/TINGLING X 1 DAY Vital Signs & Intake/Output Vital Signs & Intake/Output Vital Signs Date Time Temp Pulse Resp B/P B/P Pulse O2 O2 Flow FiO2 Mean Ox Delivery Rate 07/03 1849 98.0 90 15 138/87 99 Room Air Room Air 07/03 1520 97.8 96 17 140/98 98 Room Air Allergies Coded Allergies: dog dander (HIVES 02/25/17) Reconcile Medications Cyclobenzaprine HCl 10 MG TABLET 1 TAB PO QPM PRN muscle strain Ibuprofen 600 MG TABLET 1 TAB PO Q6PRN PRN pain with food Insulin Glargine,Hum.rec.anlog (Lantus Solostar) 100 UNIT/ML (3 ML) INSULN.PEN 40 UNIT SC DAILY DIABETES (Reported) Insulin Lispro (Humalog Kwikpen U-100) (Unknown Strength) INSULN.PEN (Unknown Dose) SC SEE SLIDING SCALE DIABETES (Reported) Meclizine HCl 25 MG TABLET 1 TAB PO TIDPRN PRN dizziness Meloxicam (Mobic) 15 MG TABLET 1 TAB PO DAILY PRN pain Methylprednisolone. (Medrol) 4 MG TAB.DS.PK 1 DP PO AD INFLAMMATION 6 on day 1 then reduce by one tablet daily until gone Ondansetron (Zofran Odt) 4 MG TAB.RAPDIS 1 TAB SL TID PRN nausea Scopolamine 1 MG/3 DAY PATCH.TD.3 1 PATCH TOP Q72 PRN dizziness Tramadol HCl (Ultram) 50 MG TABLET 1-2 TAB PO Q6PRN PRN severe pain Triage Note: PT TO ED WITH C/O RIGHT ARM NUMBNESS/TINGLING FROM HAND TO ELBOW SINCE WAKING UP THIS AM. STATES DOES NOT HAVE FULL ROM OF RIGHT WRIST SINCE THIS STARTED. +RADIAL PULSES BILATERALLY. STATES HE IS A TYPE 1 DIABETIC, BLOOD SUGARS ARE UNDER CONTROL. STATES HE WROTE A 35 PAGE PAPER A COUPLE DAYS AGO WITH RIGHT HAND AND BELIEVES IT MAY BE RELATED. Onset: Abrupt Duration: day(s): Timing: recent history HPI: 07/03/17 5:19 PM 26-year-old man presents to the emergency department complaining of right wrist drop. He denies headache, neck pain or other complaints. He says he woke up having paresthesias to the right wrist. He says he has a history of diabetes mellitus. He says he also fell recently and strained his right knee. He's having pain to the right lateral meniscus. No rash or tick bite. 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 Age 45. Thyroiditis FATHER (medical hx unknown - not seen x years.). Age 48. Progress Plan of Care: Orders Procedure Date/time Status Durable Medical Equipment 07/03 1856 Active FingerStick- Glucose 07/03 1848 Active Departure Departure Condition: Stable Referrals: Patient Has No Primary Care Dr (PCP/Family) Departure Forms: Customer Survey General Discharge Information Prescriptions: Current Visit Scripts Methylprednisolone. (Medrol) 1 DP PO AD #1 DP 6 on day 1 then reduce by one tablet daily until gone
--- NOTE | 2017-07-03 18:05 | RADIOLOGY REPORT ---
EXAMINATION: XR KNEE, RIGHT CLINICAL INFORMATION: Right knee trauma rule out fracture COMPARISON: None TECHNIQUE: Four views of the right knee. FINDINGS: Bones and soft tissues are normal. No fracture or joint effusion. Alignment is anatomic. Mild medial compartment joint space narrowing. No abnormal soft tissue calcification. IMPRESSION: No acute osseous abnormality of the right knee. Mild medial compartment joint space narrowing.
--- NOTE | 2017-07-03 18:08 | RADIOLOGY REPORT ---
EXAMINATION: XRY-WRIST COMPLETE-RIGHT, XRY-ELBOW, AP LATERAL, RIGHT CLINICAL INFORMATION: Right wrist drop. Trauma. Rule out fracture COMPARISON: None. TECHNIQUE: Lateral views of the right elbow. AP, lateral, oblique, and scaphoid views of the right wrist FINDINGS: No fracture or dislocation of the elbow is seen. No joint effusion. No fracture or dislocation of the right wrist. The scaphoid is intact. Intercarpal joint spaces are maintained. Alignment is normal. IMPRESSION: No acute osseous abnormality of the right wrist or elbow
--- NOTE | 2017-07-03 18:43 | ED UPPER/LOWER EXTREMITY COMPL ---
History of Present Illness General Chief Complaint: Upper Extremity Problem Stated Complaint: R ARM NUMBNESS/TINGLING X 1 DAY Source: patient Exam Limitations: no limitations Vital Signs & Intake/Output Vital Signs & Intake/Output Vital Signs Date Time Temp Pulse Resp B/P B/P Pulse O2 O2 Flow FiO2 Mean Ox Delivery Rate 07/03 1849 98.0 90 15 138/87 99 Room Air Room Air 07/03 1520 97.8 96 17 140/98 98 Room Air Allergies Coded Allergies: dog dander (HIVES 02/25/17) Reconcile Medications Cyclobenzaprine HCl 10 MG TABLET 1 TAB PO QPM PRN muscle strain Ibuprofen 600 MG TABLET 1 TAB PO Q6PRN PRN pain with food Insulin Glargine,Hum.rec.anlog (Lantus Solostar) 100 UNIT/ML (3 ML) INSULN.PEN 40 UNIT SC DAILY DIABETES (Reported) Insulin Lispro (Humalog Kwikpen U-100) (Unknown Strength) INSULN.PEN (Unknown Dose) SC SEE SLIDING SCALE DIABETES (Reported) Meclizine HCl 25 MG TABLET 1 TAB PO TIDPRN PRN dizziness Meloxicam (Mobic) 15 MG TABLET 1 TAB PO DAILY PRN pain Methylprednisolone. (Medrol) 4 MG TAB.DS.PK 1 DP PO AD INFLAMMATION 6 on day 1 then reduce by one tablet daily until gone Ondansetron (Zofran Odt) 4 MG TAB.RAPDIS 1 TAB SL TID PRN nausea Scopolamine 1 MG/3 DAY PATCH.TD.3 1 PATCH TOP Q72 PRN dizziness Tramadol HCl (Ultram) 50 MG TABLET 1-2 TAB PO Q6PRN PRN severe pain Triage Note: PT TO ED WITH C/O RIGHT ARM NUMBNESS/TINGLING FROM HAND TO ELBOW SINCE WAKING UP THIS AM. STATES DOES NOT HAVE FULL ROM OF RIGHT WRIST SINCE THIS STARTED. +RADIAL PULSES BILATERALLY. STATES HE IS A TYPE 1 DIABETIC, BLOOD SUGARS ARE UNDER CONTROL. STATES HE WROTE A 35 PAGE PAPER A COUPLE DAYS AGO WITH RIGHT HAND AND BELIEVES IT MAY BE RELATED. Triage Nurses Notes Reviewed? yes Onset: Abrupt Duration: constant Severity: moderate Severity Numbers: 5 HPI: Patient is a 26-year-old male with a past medical history of 3. diabetes who presents emergency room seen at today patient woke up from sleep he noted numbness and tingling from his right elbow although into his fingers. Patient is also complaining that he cannot lift his right wrist. Patient does state that he was working on a paper on the computer in which he tights approximate 45 PAGES is in the past 3 days. Patient denies any fever chills recent tick bites chest pain shortness of breath or arm swelling Patient is also complaining that 1 week ago while skateboarding he twisted his right knee resulting acute onset of right lateral knee pain. Patient states ambulation makes worse patient denies any hip or ankle pain. (Reynaldo Byrne) Past History Travel History Traveled to [place] past 21 day No Medical History Any Pertinent Medical History? 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 Age 45. Thyroiditis FATHER (medical hx unknown - not seen x years.). Age 48. Hx Contributory? No (Reynaldo Byrne) Review of Systems Review of Systems Constitutional: Reports: no symptoms. EENTM: Reports: no symptoms. Respiratory: Reports: no symptoms. Cardiovascular: Reports: no symptoms. Gastrointestinal/Abdominal: Reports: no symptoms. Genitourinary: Reports: no symptoms. Musculoskeletal: Reports: see HPI, joint pain. Skin: Reports: no symptoms. Neurological/Psychological: Reports: see HPI. Hematologic/Endocrine: Reports: no symptoms. Immunological: Reports: no symptoms. All Other Systems: Reviewed and Negative (Reynaldo Byrne) Physical Exam Physical Exam General Appearance: no apparent distress, alert, comfortable Head: atraumatic Eyes: Bilateral: normal appearance. 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 Lateral joint line point tenderness negative valgus stress test negative varus stress test negative anterior drawer test negative posterior drawer test (Luly LEONE,Reynaldo) Progress Differential Diagnosis: arterial insufficiency, compartment syndrome, contusion, dislocation, DVT, fracture, gout, septic arthritis, sprain, tendon injury Plan of Care: Orders Procedure Date/time Status Durable Medical Equipment 07/03 1856 Active FingerStick- Glucose 07/03 1848 Active Due to history of present illness and exam appears concerns of right upper extremity radiculopathy, negative Spurling test from the emergency room setting, patient had right radial pulse intact no signs of DVT, no concerns of spinal abscess or discitis at this time denies any neck pain, full active range of motion in cervical spine. Patient was ordered a fingerstick however he declines , no suspicion at this time of DKA or hyperglycemia or stroke. Discussed x-ray results with patient, a wrist splint was applied to right wrist pain post neurovascular was intact, patient had normal steady gait, no osseous injury noted on x-rays, patient was strongly advised to follow up and establish a primary care doctor receive MRI or EMG studies. Diagnostic Imaging: Viewed by Me: Radiology Read. Radiology Impression: no acute abnormality, no fracture Comments: PATIENT: ASIF JUAREZ PRESENT AGE: 26 PATIENT ACCOUNT NO: [id number] : 91 LOCATION: [facility] ORDERING PHYSICIAN: Lam Perez DO SERVICE DATE: 07/03/17 EXAM TYPE: RAD - XRY-KNEE COMPLETE RIGHT EXAMINATION: XR KNEE, RIGHT CLINICAL INFORMATION: Right knee trauma rule out fracture COMPARISON: None TECHNIQUE: Four views of the right knee. FINDINGS: Bones and soft tissues are normal. No fracture or joint effusion. Alignment is anatomic. Mild medial compartment joint space narrowing. No abnormal soft tissue calcification. IMPRESSION: No acute osseous abnormality of the right knee. Mild medial compartment joint space narrowing. DICTATED BY: Tan Hernandez MD DATE/TIME DICTATED:07/03/171799 PATIENT: ASIF JUAREZ PRESENT AGE: 26 PATIENT ACCOUNT NO: [id number] : 91 LOCATION: [facility] ORDERING PHYSICIAN: Lam Perez DO SERVICE DATE: 07/03/17 EXAM TYPE: RAD - XRY-ELBOW, AP & LATERAL, RIGHT; XRY-WRIST COMPLETE-RIGHT EXAMINATION: XRY-WRIST COMPLETE-RIGHT, XRY-ELBOW, AP LATERAL, RIGHT CLINICAL INFORMATION: Right wrist drop. Trauma. Rule out fracture COMPARISON: None. TECHNIQUE: Lateral views of the right elbow. AP, lateral, oblique, and scaphoid views of the right wrist FINDINGS: No fracture or dislocation of the elbow is seen. No joint effusion. No fracture or dislocation of the right wrist. The scaphoid is intact. Intercarpal joint spaces are maintained. Alignment is normal. IMPRESSION: No acute osseous abnormality of the right wrist or elbow DICTATED BY: Tan Hernandez MD DATE/TIME DICTATED:07/03/171800 DEPARTMENT STORE SALESPERSON:JOSELINE DATE/TIME TRANSCRIBED:07/03/171800 CONFIDENTIAL, DO NOT COPY WITHOUT APPROPRIATE AUTHORIZATION. <Electronically signed in Other Vendor System> SIGNED BY: Tan Hernandez MD 1807 (Reynaldo Byrne) Departure Departure Disposition: HOME OR SELF CARE Condition: Stable Clinical Impression Primary Impression: Radiculopathy of arm Secondary Impressions: Sprain of lateral collateral ligament of right knee Referrals: Patient Has No Primary Care Dr (PCP/Family) Additional Instructions: As discussed begin icing the area directly on the right knee 20 minutes every 2 hours, begin jina-ceq-reelfhm ibuprofen for pain and inflammation, begin the prescription of Medrol Dosepak for inflammation, begin using the wrist splint for support of your wrist. If symptoms worsen or if YOU develop any new concerning symptom return to emergency room. Tomorrow please follow up and establish a primary care doctor for further evaluation treatment of your symptoms. Departure Forms: Customer Survey General Discharge Information Prescriptions: Current Visit Scripts Methylprednisolone. (Medrol) 1 DP PO AD #1 DP 6 on day 1 then reduce by one tablet daily until gone (Reynaldo Byrne) PA/TANK TENDER Co-Sign Statement Statement: ED Attending supervision documentation- [X] I saw and evaluated the patient. I have also reviewed all the pertinent lab results and diagnostic results. I agree with the findings and the plan of care as documented in the PA's/TANK TENDER's documentation. [] I have reviewed the ED Record and agree with the PA's/TANK TENDER's documentation. [] Additions or exceptions (if any) to the PAs/TANK TENDER's note and plan are summarized below: [] 07/03/17 5:19 PM 26-year-old man presents to the emergency department complaining of right wrist drop. He denies headache, neck pain or other complaints. He says he woke up having paresthesias to the right wrist. He says he has a history of diabetes mellitus. He says he also fell recently and strained his right knee. He's having pain to the right lateral meniscus. No rash or tick bite. The patient has a right radial nerve palsy. He was splinted by the PA and will follow up with neurology. (Lam Perez DO)
[2017-07-03 18:49] VITALS: BP 138/87
[2017-07-03] MEDS ORDERED: MEDROL4 M2 PO (18:53)
== END 2017-07-03 19:01 ==
LOC: ERH 15:11
DX: S83.421A Sprain of lateral collateral ligament of right knee, initial encounter (principal); M54.10 Radiculopathy, site unspecified; X58.XXXA Exposure to other specified factors, initial encounter; Y93.51 Activity, roller skating (inline) and skateboarding; Y92.9 Unspecified place or not applicable
CPT/HCPCS: 73070-RT; 73110-RT; 73562-RT

== ENCOUNTER 2017-07-08 18:49 | Observation (INO) | payer OTHER ==
[~2017-07-08] VITALS: Ht 180.3 cm; Wt 86.2 kg
[~2017-07-08 18:49] MED LIST changes: +MEDROL4 M2 PO
[2017-07-08 19:12] LABS: ABSOLUTE BASOPHIL COUNT 0 /CUMM (0.0-0.2); ABSOLUTE EOSINOPHIL COUNT 0 /CUMM (0.0-0.7); ABSOLUTE GRANULOCYTE CT 8.8 /CUMM (1.4-6.5); ABSOLUTE LYMPH COUNT 1.1 /CUMM (1.2-3.4); ABSOLUTE MONOCYTE COUNT 0.3 /CUMM (0.10-0.60); BASOPHIL % 0.4 % (0.0-2.0); EOSINOPHIL % 0 % (0-5); GRANULOCYTE % 85.9 % (42.2-75.2); MEAN CORPUSCULAR HGB 29.7 PG (27.0-31.0); MEAN CORPUSCULAR HGB CONC 33.2 G/DL (33.0-37.0); MEAN CORPUSCULAR VOLUME 89.5 FL (80.0-94.0); MEAN PLATELET VOLUME 8.6 FL (7.4-10.4); PLATELET COUNT 381 /CUMM (130-400); RBC DISTRIBUTION WIDTH 12.9 % (11.5-14.5); RED BLOOD CELL CT 4.91 /CUMM (4.70-6.10); WHITE BLOOD CELL COUNT 10.3 /CUMM (4.8-10.8)
--- NOTE | 2017-07-08 19:15 | ED GI/GU/ABDOMINAL COMPLAINT ---
See Addendum History of Present Illness General Chief Complaint: General Adult Stated Complaint: PT IS VOMITING Source: patient, family Exam Limitations: clinical condition Vital Signs & Intake/Output Vital Signs & Intake/Output Vital Signs Date Time Temp Pulse Resp B/P B/P Pulse O2 O2 Flow FiO2 Mean Ox Delivery Rate 07/09 804 98.6 88 18 136/88 98 Room Air 07/09 0523 99.3 68 18 164/82 99 Room Air 07/09 0156 99.4 90 22 151/91 97 Room Air 07/08 2152 99.6 96 20 142/86 98 Room Air 07/08 1913 98 24 100 Room Air 07/08 1852 98.5 75 24 154/95 94 Room Air Room Air ED Intake and Output 07/09 0000 07/08 1200 Intake Total Output Total Balance Patient 190 lb Weight Weight Reported by Patient Measurement Method Allergies Coded Allergies: dog dander (HIVES 02/25/17) Reconcile Medications Cyclobenzaprine HCl 10 MG TABLET 1 TAB PO QPM PRN muscle strain Ibuprofen 600 MG TABLET 1 TAB PO Q6PRN PRN pain with food Insulin Glargine,Hum.rec.anlog (Lantus Solostar) 100 UNIT/ML (3 ML) INSULN.PEN 40 UNIT SC DAILY DIABETES (Reported) Insulin Lispro (Humalog Kwikpen U-100) (Unknown Strength) INSULN.PEN (Unknown Dose) SC SEE SLIDING SCALE DIABETES (Reported) Meclizine HCl 25 MG TABLET 1 TAB PO TIDPRN PRN dizziness Meloxicam (Mobic) 15 MG TABLET 1 TAB PO DAILY PRN pain Methylprednisolone. (Medrol) 4 MG TAB.DS.PK 1 DP PO AD INFLAMMATION 6 on day 1 then reduce by one tablet daily until gone Metoclopramide HCl (Reglan) 10 MG TABLET 1 TAB PO Q6 PRN NAUSEA/VOMITING 30 minutes before meals and bedtime Ondansetron (Zofran Odt) 4 MG TAB.RAPDIS 1 TAB SL TID PRN nausea Promethazine HCl 25 MG TABLET 1 TAB PO Q6P PRN NAUSEA/VOMITING Scopolamine 1 MG/3 DAY PATCH.TD.3 1 PATCH TOP Q72 PRN dizziness Tramadol HCl (Ultram) 50 MG TABLET 1-2 TAB PO Q6PRN PRN severe pain Triage Note: PT TO ED WITH C/O NAUSEA VOMITING "MY STOMACH HURTS FROM THROWING UP, IT HURTS TO BREATHE" 100% IN TRIAGE. ACCUCHECK: 327 Triage Nurses Notes Reviewed? yes Onset: Gradual Duration: hour(s):, constant, continues in ED, getting worse Quality/Severity: severe Location: epigastric Radiation: no radiation Activities at Onset: rest HPI: Patient presents for evaluation of epigastric abdominal pain and vomiting that began this morning. Patient is an insulin-dependent diabetic and states that his sugar levels running about 180. He has had prior similar episodes to this secondary to high sugar levels and pancreatitis. He denies any associated fever or cold symptoms oh contacts recent travel or alcohol use. Patient has felt hot and cold during the day. His abdominal pain worsens with breathing and nothing seems to make it feel better. He has been compliant with his diabetic medication. (Sridevi DAWSON,Lam Wilkinson) Past History Travel History Traveled to [place] past 21 day No Medical History Any Pertinent Medical History? 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 Age 45. Thyroiditis FATHER (medical hx unknown - not seen x years.). Age 48. Hx Contributory? No (Lam Laureano MD) Review of Systems Review of Systems Constitutional: Reports: no symptoms. EENTM: Reports: no symptoms. Respiratory: Reports: no symptoms. Cardiovascular: Reports: no symptoms. GI: Reports: see HPI. Genitourinary: Reports: no symptoms. Musculoskeletal: Reports: no symptoms. Skin: Reports: no symptoms. Neurological/Psychological: Reports: no symptoms. Hematologic/Endocrine: Reports: see HPI. Immunologic/Allergic: Reports: no symptoms. All Other Systems: Reviewed and Negative (Sridevi DAWSON,Lam Wilkinson) Physical Exam Physical Exam Gastrointestinal: SEE BELOW Comments: Exam limited secondary to patient's vomiting and abdominal pain Gen.: Well-nourished, well-developed, no acute respiratory distress. Head: Normocephalic, atraumatic. Eyes: Normal inspection bilaterally Ears: Normal inspection bilaterally Nose: Normal inspection Throat/mouth : Moist mucosa Neck: Supple, full range of motion, no goiter Lungs: Quiet respirations Abdomen: Deferred until patient is feeling more comfortable Back: Normal range of motion Extremities: Normal range of motion grossly, no cyanosis clubbing or edema of the upper extremities Neurologic: Cranial nerves grossly intact, speech is clear Skin: warm and dry Psychiatric: Calm, cooperative, no apparent delusions or hallucinations Core Measures ACS in differential dx? No Sepsis Present: No Sepsis Focused Exam Completed? No (Sridevi DAWSON,Lam Wilkinson) Progress Differential Diagnosis: PANCREATITIS, GASTROPARESIS, dka/honK Plan of Care: Orders Procedure Date/time Status CBC WITHOUT DIFFERENTIAL 07/09 620 Complete BASIC METABOLIC PANEL 07/09 620 Complete Misc Message 07/09 0130 Active ED Holding Orders 07/09 0130 Active Vital Signs 07/09 0130 Active Code Status 07/09 0130 Active MRI-HEAD W/O TORITO 07/09 0028 Active MRI-CERVICAL SPINE 07/[address] in observation 07/08 2357 Active Patient Data 07/08 235 Active FingerStick- Glucose 07/08 2357 Active LACTIC ACID 07/08 2159 Complete Add-on Test (ER Only) 07/08 2018 Active Intake & Output 07/08 1906 Active URINE DRUGS OF ABUSE 07/08 185 Complete URINALYSIS 07/08 185 Complete SERUM OSMOLALITY 07/08 185 Complete LIPASE 07/08 185 Complete LACTIC ACID 07/08 185 Complete COMPREHENSIVE METABOLIC PANEL 07/08 185 Complete CBC WITHOUT DIFFERENTIAL 07/08 185 Complete ACETONE 07/08 185 Complete Current Medications Sig/Jenni Start time Last Medication Dose Stop Time Status Admin Dextrose/Sodium 1,000 ML Q8H 07/08 2345 AC 07/09 Chloride 0801 (D5W-1/2 Normal Saline 1000ML) Metoclopramide HCl 20 MG Q6P PRN 07/08 2345 AC (Reglan) Promethazine HCl 12.5 MG Q6P PRN 07/08 2345 AC 07/09 (Phenergen) 07/15 2344 0801 Laboratory Tests 07/09/17 0735: Anion Gap 17 H, Estimated GFR > 60, BUN/Creatinine Ratio 30.0 H, Glucose 288 H, Calcium 9.3, CBC w Diff NO MAN DIFF REQ, RBC 4.55 L, MCV 88.8, MCH 30.4, MCHC 34.3, RDW 12.9, MPV 8.8, Gran % 86.5 H, Lymphocytes % 10.3 L, Monocytes % 2.7, Eosinophils % 0, Basophils % 0.5, Absolute Granulocytes 9.7 H, Absolute Lymphocytes 1.2, Absolute Monocytes 0.3, Absolute Eosinophils 0, Absolute Basophils 0.1 07/09/17 0621: Urine Color Cancelled, Urine Clarity Cancelled, Urine pH Cancelled, Ur Specific Prather Cancelled, Urine Protein Cancelled, Urine Ketones Cancelled, Urine Nitrite Cancelled, Urine Bilirubin Cancelled, Urine Urobilinogen Cancelled, Ur Leukocyte Esterase Cancelled, Ur Microscopic Cancelled, Urine Hemoglobin Cancelled, Urine Glucose Cancelled 07/09/17 0517: Urine Opiates Screen < 100, Methadone Screen 702 H, Barbiturate Screen < 60, Ur Phencyclidine Scrn < 6.00, Amphetamines Screen < 100, U Benzodiazepines Scrn < 85, Urine Cocaine Screen 574 H, Urine Cannabis Screen > 80.00 H, Urinalysis LIGHT H, Urine Color YEL, Urine Clarity CLEAR, Urine pH 7.0, Ur Specific Prather 1.010, Urine Protein TRACE H, Urine Ketones 15 H, Urine Nitrite NEG, Urine Bilirubin NEG, Urine Urobilinogen 0.2, Ur Leukocyte Esterase NEG, Ur Microscopic SEDIMENT EXAMINED, Urine RBC RARE, Urine Bacteria RARE H, Urine Hemoglobin NEG, Urine Glucose >=1000 H 07/08/17 2215: Lactic Acid 1.8 07/08/17 1900: Anion Gap 16, Estimated GFR > 60, BUN/Creatinine Ratio 24.0, Glucose 317 H, Serum Osmolality 299 H, Lactic Acid 2.8 H, Calcium 9.9, Total Bilirubin 0.7, AST 17, ALT 23, Alkaline Phosphatase 181 H, Total Protein 7.8, Albumin 4.9, Globulin 2.9, Albumin/Globulin Ratio 1.7, Lipase < 10 L, CBC w Diff NO MAN DIFF REQ, RBC 4.91, MCV 89.5, MCH 29.7, MCHC 33.2, RDW 12.9, MPV 8.6, Gran % 85.9 H, Lymphocytes % 11.0 L, Monocytes % 2.7, Eosinophils % 0, Basophils % 0.4, Absolute Granulocytes 8.8 H, Absolute Lymphocytes 1.1 L, Absolute Monocytes 0.3, Absolute Eosinophils 0, Absolute Basophils 0, Acetone Level NEGATIVE Diagnostic Imaging: Discussed w/RAD: CT Scan. Radiology Impression: PATIENT: ASIF JUAREZ PRESENT AGE: 26 PATIENT ACCOUNT NO: [id number] : 91 LOCATION: [facility] ORDERING PHYSICIAN: Lam Laureano MD SERVICE DATE: 07/08/17 EXAM TYPE: CAT - CT ABD & PELVIS W IV CONTRAST EXAMINATION: CT ABDOMEN AND PELVIS WITH CONTRAST CLINICAL INFORMATION: Vomiting, abdominal pain. History of diabetes. COMPARISON : CT abdomen/pelvis 08/02/2016. TECHNIQUE: Multidetector volumetric imaging was performed of the abdomen and pelvis following IV administration of 95 mL of Optiray 320 intravenous contrast. Sagittal and coronal reformatted images were obtained on the technologist's workstation. DLP: 386.83 mGy-cm FINDINGS: LUNG BASES: The visualized lung bases are unremarkable. LIVER, GALLBLADDER, AND BILIARY TREE: The liver is normal in size, shape, and attenuation. No focal hepatic lesion or biliary ductal dilatation is present. The gallbladder is unremarkable with no evidence of radiopaque gallstones, gallbladder wall thickening, or obvious pericholecystic inflammatory changes. PANCREAS: Unremarkable. SPLEEN: Unremarkable. ADRENAL GLANDS: Unremarkable. KIDNEYS AND URETERS: The kidneys are normal in size, shape, and attenuation. No hydronephrosis, hydroureter, or calculi seen. No perinephric stranding. BLADDER: Unremarkable. GASTROINTESTINAL TRACT: The small and large bowel are unremarkable. The appendix is unremarkable. ABDOMINAL WALL: No significant hernia is appreciated. LYMPH NODES: Normal. VASCULAR: Unremarkable. PELVIC VISCERA: Unremarkable. OSSEOUS STRUCTURES: Unremarkable. IMPRESSION: No evidence of acute abdominal/pelvic pathology. DICTATED BY: Boy Morales MD DATE/TIME DICTATED:07/08/172111 NEONATOLOGIST:JOSELINE DATE/TIME TRANSCRIBED:2111 CONFIDENTIAL, DO NOT COPY WITHOUT APPROPRIATE AUTHORIZATION. < Electronically signed in Other Vendor System> SIGNED BY: Boy Morales MD 07/08/172118 Initial ED EKG: none Comments: 07/08/2017 8:18:15 PM I have updated Asif and his family on test results. He continues to complain of severe abdominal pain. I have ordered Toradol for this. His mother also agrees to a CAT scan given the diffuse abdominal tenderness patient is currently showing on physical examination. The cause of his abdominal pain and vomiting is unclear at this point. I have ordered additional anti-emetics. 07/08/2017 11:35:19 PM patient appears more comfortable and has been sleeping off and on during his emergency department stay. He does appear somewhat somnolent from medications and his illness and his mother feels that he is not quite ready to return home. We will continue to watch him in the emergency department. 07/08/2017 11:55:04 PM case discussed with case management. 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 (Sridevi DAWSON,Lam Wilkinson) Departure Departure Disposition: HOME OR SELF CARE Condition: Stable Clinical Impression Primary Impression: Diabetic gastroparesis Referrals: Amanda Weber MD (PCP/Family) Additional Instructions: Reglan as needed for nausea or vomiting, add Phenergan if necessary. Clear liquids and advance diet as tolerated. Follow-up with your primary care physician for reevaluation within the next 48 hours. Return if any concerns or sudden worsening. Please note that there might be incidental findings in your evaluation that are unrelated to the current emergency department visit. Please notify your primary care doctor about this emergency department visit in order to obtain and review all of the testing performed so that these incidental findings can be monitored as needed. If you had an x-ray performed, please understand that some fractures may not be seen on the initial set of x-rays. If your symptoms persist you might need a repeat set of x-rays to check for such a fracture. If you had a laceration evaluated, please understand that foreign bodies such as glass or wood may not be visible to the naked eye or on plain x-rays. If the wound becomes red, swollen, increasingly more painful or if there is any drainage from the wound, please have it reevaluated by a physician for the possibility of a retained foreign body. If you're unable to follow up as outlined in the discharge instructions please return to the emergency department. Thank you for choosing the [facility] Emergency Department for your care. It was a pleasure to serve you today. Lam Laureano M.D. [facility] Departure Forms: Customer Survey General Discharge Information Prescriptions: Current Visit Scripts Metoclopramide HCl (Reglan) 1 TAB PO Q6 PRN NAUSEA/VOMITING #10 TAB 30 minutes before meals and bedtime Promethazine HCl 1 TAB PO Q6P PRN NAUSEA/VOMITING #12 TAB (Sridevi DAWSON,Lam Wilkinson) ED Attending Observation Initial Observation Note: I have seen and personally examined ASIF JUAREZ on 07/09/17 at 0746. I agree with the current emergency department documentation. The disposition (admission or discharge) is uncertain at this time, he needs a period of observation for the following reason(s): Intractable vomiting likely secondary to diabetic gastroparesis. Patient has been poorly controlled as far as symptoms are concerned and has been unable to tolerate liquids. The ED Nurse caring for this patient has been personally informed as to what the patient is being observed for. (Sridevi DAWSON,Lam Wilkinson) Observation Re-Evaluation: I have reevaluated ASIF JUAREZ on 07/09/17 at 0843. The physical findings that support the continued need to observe this patient include [the patient did have another episode of vomiting. He received IV Zofran. He is continuing to receive IV fluids. He does feel better. He did complain of pain and received IV Tylenol. Abdomen is soft and reveals mild epigastric tenderness.]. Patient is pending MRI scan (Lam Perez DO)
--- NOTE | 2017-07-08 21:19 | CT SCAN REPORT ---
EXAMINATION: CT ABDOMEN AND PELVIS WITH CONTRAST CLINICAL INFORMATION: Vomiting, abdominal pain. History of diabetes. COMPARISON: CT abdomen/pelvis 08/02/2016. TECHNIQUE: Multidetector volumetric imaging was performed of the abdomen and pelvis following IV administration of 95 mL of Optiray 320 intravenous contrast. Sagittal and coronal reformatted images were obtained on the technologist's workstation. DLP: 386.83 mGy-cm FINDINGS: LUNG BASES: The visualized lung bases are unremarkable. LIVER, GALLBLADDER, AND BILIARY TREE: The liver is normal in size, shape, and attenuation. No focal hepatic lesion or biliary ductal dilatation is present. The gallbladder is unremarkable with no evidence of radiopaque gallstones, gallbladder wall thickening, or obvious pericholecystic inflammatory changes. PANCREAS: Unremarkable. SPLEEN: Unremarkable. ADRENAL GLANDS: Unremarkable. KIDNEYS AND URETERS: The kidneys are normal in size, shape, and attenuation. No hydronephrosis, hydroureter, or calculi seen. No perinephric stranding. BLADDER: Unremarkable. GASTROINTESTINAL TRACT: The small and large bowel are unremarkable. The appendix is unremarkable. ABDOMINAL WALL: No significant hernia is appreciated. LYMPH NODES: Normal. VASCULAR: Unremarkable. PELVIC VISCERA: Unremarkable. OSSEOUS STRUCTURES: Unremarkable. IMPRESSION: No evidence of acute abdominal/pelvic pathology.
--- NOTE | 2017-07-09 01:12 | RADIOLOGY REPORT ---
EXAMINATION: XR HAND, RIGHT CLINICAL INFORMATION: Fall days ago with right thumb pain/tenderness. COMPARISON: None TECHNIQUE: PA, lateral, and oblique views of the right hand. FINDINGS: There is no evidence of acute fracture or dislocation. Alignment is anatomic. Joint spaces are maintained. The soft tissues are unremarkable. IMPRESSION: No fracture or malalignment.
[2017-07-09] MEDS ORDERED: REGLAN10 M1 PO (05:50)
[2017-07-09] MEDS ORDERED: PROMETHAZINE HC25 M3 PO (05:50)
[2017-07-09 07:47] LABS: ABSOLUTE BASOPHIL COUNT 0.1 /CUMM (0.0-0.2); ABSOLUTE EOSINOPHIL COUNT 0 /CUMM (0.0-0.7); ABSOLUTE GRANULOCYTE CT 9.7 /CUMM (1.4-6.5); ABSOLUTE LYMPH COUNT 1.2 /CUMM (1.2-3.4); ABSOLUTE MONOCYTE COUNT 0.3 /CUMM (0.10-0.60); BASOPHIL % 0.5 % (0.0-2.0); EOSINOPHIL % 0 % (0-5); GRANULOCYTE % 86.5 % (42.2-75.2); HEMATOCRIT 40.4 % (42-52); MEAN CORPUSCULAR HGB 30.4 PG (27.0-31.0); MEAN CORPUSCULAR HGB CONC 34.3 G/DL (33.0-37.0); MEAN CORPUSCULAR VOLUME 88.8 FL (80.0-94.0); MEAN PLATELET VOLUME 8.8 FL (7.4-10.4); PLATELET COUNT 347 /CUMM (130-400); RBC DISTRIBUTION WIDTH 12.9 % (11.5-14.5); RED BLOOD CELL CT 4.55 /CUMM (4.70-6.10); WHITE BLOOD CELL COUNT 11.2 /CUMM (4.8-10.8)
--- NOTE | 2017-07-09 12:57 | MRI REPORT ---
EXAMINATION: MR BRAIN WITHOUT CONTRAST MR CERVICAL SPINE WITHOUT CONTRAST CLINICAL INFORMATION: 26-year-old man with right wrist drop. COMPARISON: 02/25/2017 CTs TECHNIQUE: Multiplanar, multisequence MR imaging was performed through the brain and cervical spine without the use of intravenous contrast. FINDINGS: BRAIN: A single nonspecific punctate focus of susceptibility artifact is seen in the left middle frontal gyrus, perhaps reflecting a tiny incidental occult cavernous angioma. No focal reduced diffusion is seen to suggest acute or subacute cerebral ischemia. No intracranial mass lesion, intracerebral edema, intra-axial blood products, extra-axial collection, or midline shift is apparent. The ventricles and sulci are age appropriate. Expected intracranial flow voids are visualized. The paranasal sinuses are well aerated. CERVICAL SPINE: Alignment of the cervical spine remains anatomic. Vertebral bodies are normal in height, bone marrow is normal in signal intensity on all sequences, and overall disc volumes are preserved. The craniocervical junction is normal in appearance and the cervical spinal cord is normal in contour and signal intensity. C2-C3, C3-C4, C4-C5: The disc contours are normal, and the canal and foramina are widely patent. C5-C6: There is a soft disc bulge that minimally effaces the ventral CSF space. The canal and foramina remain nonstenotic. C6-C7, C7-T1: The disc contours are normal, and the canal and foramina remain widely patent. IMPRESSION: Essentially normal MR appearance of the brain and cervical spine. No imaging evidence of acute cerebral ischemia or demyelinating disease.
[2017-07-09 13:45] VITALS: BP 142/80
== END 2017-07-09 13:30 ==
LOC: ERH 18:49 → ERHI 23:57
PROVIDERS: Emergency Medicine; Physician Assistant Medical
DX: E10.43 Type 1 diabetes mellitus with diabetic autonomic (poly)neuropathy (principal); K31.84 Gastroparesis; Z79.4 Long term (current) use of insulin; R11.10 Vomiting, unspecified; R01.1 Cardiac murmur, unspecified; K29.20 Alcoholic gastritis without bleeding; F41.9 Anxiety disorder, unspecified; F32.9 Major depressive disorder, single episode, unspecified; F11.20 Opioid dependence, uncomplicated; F17.200 Nicotine dependence, unspecified, uncomplicated
CPT/HCPCS: 70551; 72141; 73130-RT; 74177; 80307; 81001; 96361; 96372; 96374; 96375; 96376; J0131; J1885; J2550; J2765; J3101; J7042

== ENCOUNTER 2017-10-07 10:26 | Inpatient (IN) | payer OTHER ==
[~2017-10-07] VITALS: Ht 180.3 cm; Wt 86.2 kg
[~2017-10-07 10:26] MED LIST changes: +REGLAN10 M1 PO
--- NOTE | 2017-10-07 11:20 | ED GI/GU/ABDOMINAL COMPLAINT ---
History of Present Illness General Chief Complaint: Nausea, Vomiting, Diarrhea Stated Complaint: N/V X 2 HOURS Source: patient, family Exam Limitations: no limitations Allergies Coded Allergies: dog dander (HIVES 02/25/17) Reconcile Medications Cyclobenzaprine HCl 10 MG TABLET 1 TAB PO QPM PRN muscle strain Ibuprofen 600 MG TABLET 1 TAB PO Q6PRN PRN pain with food Insulin Glargine,Hum.rec.anlog (Lantus Solostar) 100 UNIT/ML (3 ML) INSULN.PEN 40 UNIT SC DAILY DIABETES (Reported) Insulin Lispro (Humalog Kwikpen U-100) (Unknown Strength) INSULN.PEN (Unknown Dose) SC SEE SLIDING SCALE DIABETES (Reported) Meclizine HCl 25 MG TABLET 1 TAB PO TIDPRN PRN dizziness Meloxicam (Mobic) 15 MG TABLET 1 TAB PO DAILY PRN pain Methylprednisolone. (Medrol) 4 MG TAB.DS.PK 1 DP PO AD INFLAMMATION 6 on day 1 then reduce by one tablet daily until gone Metoclopramide HCl (Reglan) 10 MG TABLET 1 TAB PO Q6 PRN NAUSEA/VOMITING 30 minutes before meals and bedtime Ondansetron (Zofran Odt) 4 MG TAB.RAPDIS 1 TAB SL TID PRN nausea Promethazine HCl 25 MG TABLET 1 TAB PO Q6P PRN NAUSEA/VOMITING Scopolamine 1 MG/3 DAY PATCH.TD.3 1 PATCH TOP Q72 PRN dizziness Tramadol HCl (Ultram) 50 MG TABLET 1-2 TAB PO Q6PRN PRN severe pain Triage Note: PT TO ED C/O N/V X 2 HOURS. H/O DM. STATES VOMITING GREEN BILE. UNABLE TO SIT STILL IN TRIAGE. FAMILY STATING "HE IS IN [place], HE NEEDS A ROOM, IF HE DOESN'T GET ONE I WILL CALL 911 AND WE WILL GO TO [facility]". PT TAKEN TO ROOM 16 VIA W/C. Triage Nurses Notes Reviewed? yes HPI: Patient is a 27-year-old male past medical history significant for type 1 diabetes mellitus, polysubstance abuse, methadone dependent who comes to the emergency department complaining of 8 hour history of nausea and vomiting, 10-12 occasions, of a non-bilious nonbloody vomiting accompanied by abdominal pain primarily in the epigastric area, rated 9 out of 10, with no aggravating or alleviating factors. Patient denies any recent fever, chills, diarrhea, dysuria , ethanol use. (Martin Zelaya MD) Vital Signs & Intake/Output Vital Signs & Intake/Output Vital Signs Date Time Temp Pulse Resp B/P B/P Pulse O2 O2 Flow FiO2 Mean Ox Delivery Rate 10/07 1730 98.2 85 20 160/80 98 10/07 1445 98.1 99 16 168/87 100 Room Air 10/07 1300 65 20 159/89 97 Room Air 10/07 1039 97.4 67 20 140/90 98 Room Air (Chris BANSALLam Dandy) Past History Travel History Traveled to [place] past 21 day No Medical History Any Pertinent Medical History? 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 Age 45. Thyroiditis FATHER (medical hx unknown - not seen x years.). Age 48. Hx Contributory? Yes (Martin Zelaya MD) Review of Systems Review of Systems Constitutional: Reports: see HPI. EENTM: Reports: no symptoms. Respiratory: Reports: no symptoms. Cardiovascular: Reports: no symptoms. GI: Reports: see HPI. Genitourinary: Reports: no symptoms. Musculoskeletal: Reports: no symptoms. Skin: Reports: no symptoms. Neurological/Psychological: Reports: no symptoms. Hematologic/Endocrine: Reports: no symptoms. Immunologic/Allergic: Reports: no symptoms. All Other Systems: Reviewed and Negative (Martin Zelaya MD) Physical Exam Physical Exam General Appearance: alert, awake, anxious, severe distress, pt restless, fidgety , visibly in pain Head: atraumatic, normal appearance Eyes: Bilateral: normal appearance, EOMI. Ears, Nose, Throat, Mouth: hearing grossly normal Neck: normal inspection, supple Respiratory: normal breath sounds, chest non-tender, no respiratory distress Cardiovascular: regular rate/rhythm Gastrointestinal: no visible scars or erythema, hypoactive bowel sounds, pain ellicited upon light palpation diffusely across all quadrants, primarily in epigastrium; abdomen is soft, nondistended, no abdominal guarding or rebound tenderness. Core Measures ACS in differential dx? No Sepsis Present: No Sepsis Focused Exam Completed? No (Guido Roberson MD,[facility]) Progress Differential Diagnosis: Sonya-Ciera tear, dka, opiate withdrawal Plan of Care: Orders Procedure Date/time Status Nothing by Mouth 10/08 B Active BASIC ELECTROLYTES PLUS BUN&CR 10/07 1910 Active Patient Data 10/[address] in observation 10/07 1754 Active Vital Signs 10/07 175 Active Code Status 10/07 175 Active COMPREHENSIVE METABOLIC PANEL 10/07 1400 Complete Intake & Output 10/07 1139 Active Add-on Test (ER Only) 10/07 1126 Active URINE DRUGS OF ABUSE 10/07 1126 Complete URINALYSIS 10/07 1113 Complete LIPASE 10/07 1113 Complete COMPREHENSIVE METABOLIC PANEL 10/07 1113 Complete CBC WITHOUT DIFFERENTIAL 10/07 1113 Complete AMYLASE 10/07 1113 Complete EKG 10/07 1113 Active ETHANOL 10/07 1100 Complete FingerStick- Glucose 10/07 UNK Active Current Medications Sig/Jenni Start time Last Medication Dose Stop Time Status Admin Insulin Aspart 0 TIDAC 10/08 0800 AC (NovoLOG) Sodium Chloride 1,000 ML Q10H 10/07 1930 AC (Normal Saline 0.9%) Ondansetron HCl 4 MG Q4-6 PRN PRN 10/07 191 AC (Zofran) Insulin Detemir 20 UNITS BID 10/07 1845 AC (Levemir) Laboratory Tests 10/07/17 1443: Anion Gap 11, Estimated GFR > 60, BUN/Creatinine Ratio 22.0, Glucose 329 H, Calcium 9.5, Total Bilirubin 0.4, AST 22, ALT 24, Alkaline Phosphatase 156 H, Total Protein 7.1, Albumin 4.2, Globulin 2.9, Albumin/Globulin Ratio 1.4 10/07/17 1212: Urine Opiates Screen < 100, Methadone Screen 184, Barbiturate Screen < 60, Ur Phencyclidine Scrn < 6.00, Amphetamines Screen < 100, U Benzodiazepines Scrn < 85, Urine Cocaine Screen < 50, Urine Cannabis Screen > 80.00 H, Urine Color STRAW, Urine Clarity CLEAR, Urine pH 7.0, Ur Specific Sebastian 1.010, Urine Protein NEG, Urine Ketones >=80, Urine Nitrite NEG, Urine Bilirubin NEG, Urine Urobilinogen 0.2, Ur Leukocyte Esterase NEG, Ur Microscopic EXAM NOT REQUIRED, Urine Hemoglobin NEG, Urine Glucose >=1000 H 10/07/17 1100: Anion Gap 17 H, Estimated GFR > 60, BUN/Creatinine Ratio 20.0, Glucose 513 *H, Calcium 10.4 H, Total Bilirubin 0.6, AST 20, ALT 26, Alkaline Phosphatase 174 H, Total Protein 7.4, Albumin 4.6, Globulin 2.8, Albumin/Globulin Ratio 1.6, Amylase 137 H, Lipase 13 L, CBC w Diff NO MAN DIFF REQ, RBC 4.75, MCV 87.8, MCH 30.6, MCHC 34.9, RDW 12.8, MPV 9.7, Gran % 81.4 H, Lymphocytes % 14.7 L, Monocytes % 3.3, Eosinophils % 0.1, Basophils % 0.5, Absolute Granulocytes 6.5, Absolute Lymphocytes 1.2, Absolute Monocytes 0.3, Absolute Eosinophils 0, Absolute Basophils 0, Serum Alcohol < 10.0 Initial ED EKG: none (Martin Zelaya MD) Departure Departure Disposition: STILL A PATIENT Condition: Stable Clinical Impression Primary Impression: DKA (diabetic ketoacidosis) Qualifiers: Diabetes mellitus type: type 1 Diabetes mellitus complication detail: without coma Qualified Code: E10.10 - Type 1 diabetes mellitus with ketoacidosis without coma Referrals: Leeann Talbert MD (PCP/Family) Departure Forms: Customer Survey General Discharge Information (Martin Zelaya MD) Observation Note Spoke With: Abdiel Perez MD Physician Advisor Notified: LAM LIZAMA DO Place Patient In: Non-ED OBS Care Area Rationale for Observation: My rational for observation is as follows [the patient needs observation for IV fluids, IV antiemetics, consider endocrinology consultation]. Resident Co-Sign Statement Statement: ED Attending supervision documentation- [X] I saw and evaluated the patient. I have also reviewed all the pertinent lab results and diagnostic results. I agree with the findings and the plan of care as documented in the Resident's documentation. [] I have reviewed the ED Record and agree with the Resident's documentation. [] Additions or exceptions (if any) to the Resident's note and plan are summarized below: [] I saw and personally examined the patient and I agree with the sports broadcasting internship's evaluation. 27-year-old male presented to the emergency department with nausea vomiting. On methadone. Insulin-dependent diabetes, initially DKA. He continued to have intractable vomiting. He was therefore placed in observation for further care. (Chris BANSAL,Lam Dorman)
[2017-10-07 11:30] LABS: ABSOLUTE BASOPHIL COUNT 0 /CUMM (0.0-0.2); ABSOLUTE EOSINOPHIL COUNT 0 /CUMM (0.0-0.7); ABSOLUTE GRANULOCYTE CT 6.5 /CUMM (1.4-6.5); ABSOLUTE LYMPH COUNT 1.2 /CUMM (1.2-3.4); ABSOLUTE MONOCYTE COUNT 0.3 /CUMM (0.10-0.60); BASOPHIL % 0.5 % (0.0-2.0); EOSINOPHIL % 0.1 % (0-5); GRANULOCYTE % 81.4 % (42.2-75.2); HEMATOCRIT 41.7 % (42-52); MEAN CORPUSCULAR HGB 30.6 PG (27.0-31.0); MEAN CORPUSCULAR HGB CONC 34.9 G/DL (33.0-37.0); MEAN CORPUSCULAR VOLUME 87.8 FL (80.0-94.0); MEAN PLATELET VOLUME 9.7 FL (7.4-10.4); PLATELET COUNT 278 /CUMM (130-400); RBC DISTRIBUTION WIDTH 12.8 % (11.5-14.5); RED BLOOD CELL CT 4.75 /CUMM (4.70-6.10)
--- NOTE | 2017-10-07 18:19 | History & Physical ---
See Addendum Carin Kumari 10/07/171818: General Information and HPI MD Statement: I have seen and personally examined ASIF JUAREZ and documented this H&P. The patient is a 27 year old M who presented with a patient stated chief complaint of nausea, vomiting, diarrhea. Source of Information: family History of Present Illness: 27-year-old male past medical history DM, polysubstance abuse, methadone dependent with intractable nausea vomiting. According to the mother, the patient started throwing up in the morning. He had diarrhea, abdominal pain that she denies he is being treated. Ultimately, the patient was admitted to the ICU with DKA 8 months ago. 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 He states that he "tries" to be compliant with his insulin. The parents report that his HbA1c is way too high, and his diabetes has been uncontrolled for a long time. The patient denies recent alcohol use. He does endorse coming in contact with a sick relative recently, He denies fever, chills, chest pain, urinary problems. Allergies/Medications Allergies: Coded Allergies: dog dander (HIVES 02/25/17) Home Med list Cyclobenzaprine HCl 10 MG TABLET 1 TAB PO QPM PRN muscle strain Ibuprofen 600 MG TABLET 1 TAB PO Q6PRN PRN pain with food Insulin Glargine,Hum.rec.anlog (Lantus Solostar) 100 UNIT/ML (3 ML) INSULN.PEN 40 UNIT SC DAILY DIABETES (Reported) Insulin Lispro (Humalog Kwikpen U-100) (Unknown Strength) INSULN.PEN (Unknown Dose) SC SEE SLIDING SCALE DIABETES (Reported) Meclizine HCl 25 MG TABLET 1 TAB PO TIDPRN PRN dizziness Meloxicam (Mobic) 15 MG TABLET 1 TAB PO DAILY PRN pain Methylprednisolone. (Medrol) 4 MG TAB.DS.PK 1 DP PO AD INFLAMMATION 6 on day 1 then reduce by one tablet daily until gone Metoclopramide HCl (Reglan) 10 MG TABLET 1 TAB PO Q6 PRN NAUSEA/VOMITING 30 minutes before meals and bedtime Ondansetron (Zofran Odt) 4 MG TAB.RAPDIS 1 TAB SL TID PRN nausea Promethazine HCl 25 MG TABLET 1 TAB PO Q6P PRN NAUSEA/VOMITING Scopolamine 1 MG/3 DAY PATCH.TD.3 1 PATCH TOP Q72 PRN dizziness Tramadol HCl (Ultram) 50 MG TABLET 1-2 TAB PO Q6PRN PRN severe pain Past History Travel History Traveled to [place] past 21 day No Medical History Neurological: NONE EENT: NONE Cardiovascular: Heart murmur Respiratory: NONE Gastrointestinal: alcoholic gastritis Hepatic: NONE Renal: NONE Musculoskeletal: NONE Psychiatric: anxiety, depression, ON METHADONE Endocrine: Diabetes type 1 PANCREATITIS Blood Disorders: NONE Cancer(s): 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 Age 45. Thyroiditis FATHER (medical hx unknown - not seen x years.). Age 48. Psychosocial History Who Do You Live With? BROTHER Services at Home: NONE Primary Language: Citizen Of [place] ETOH Use: denies use Illicit Drug Use: denies illicit drug use Living Will? no Power of Rock Wool Applicator/HCP? unknown Functional Ability ADLs Independent: dressing, eating, toileting, bathing. Ambulation: independent IADLs Independent: shopping, housework, finances, food prep, telephone, transportation , medication admin. Review of Systems Review of Systems Constitutional: Reports: chills, weakness. Denies: diaphoresis, fever. Cardiovascular: Denies: chest pain, orthopena, palpitations. Respiratory: Denies: cough, hemoptysis, short of breath. GI: Reports: abdominal pain, diarrhea, nausea, vomiting. Denies: bloody stool. Genitourinary: Reports: frequency. Denies: dysuria, hematuria. Neurological/Psychological: Reports: anxiety, confusion, emotional problems. Hematologic/Endocrine: Reports: polyuria, polydipsia. Exam & Diagnostic Data Last 24 Hrs of Vital Signs/I&O Vital Signs Date Time Temp Pulse Resp B/P B/P Pulse O2 O2 Flow FiO2 Mean Ox Delivery Rate 10/07 2050 98.3 83 14 131/79 98 Room Air 10/07 1730 98.2 85 20 160/80 98 10/07 1445 98.1 99 16 168/87 100 Room Air 10/07 1300 65 20 159/89 97 Room Air 10/07 1039 97.4 67 20 140/90 98 Room Air Intake & Output 10/07 1600 10/07 0800 08 0000 Intake Total Output Total 400 Balance -400 Output, 400 Emesis Patient 185 lb Weight Weight Reported by Patient Measurement Method Physical Exam General Appearance Alert, Oriented X3, Cooperative, Mild Distress Skin No Rashes Neck Supple Cardiovascular Regular Rate, Normal S1, Normal S2 Lungs Clear to Auscultation Abdomen Normal Bowel Sounds, Soft, diffusely tender, epigastric region more so Extremities Normal Pulses Assessment/Plan Assessment: 27-year-old male past medical history of PMH of DM, polysubstance abuse, methadone dependent presented to the ED with intractable nausea, vomiting, abdominal pain. He denies any recent alcohol use but endorses coming in contact with a sick relative. On examination, patient is alert, oriented, cooperative, but is in mild distress. Mucous membranes are grossly dry. On palpation he has diffuse abdominal tenderness, more so in the epigastric region. Vitals in the ED temp: 98.2, pulse: 85, R, 20, BP: 160/80, pulse ox, 98%. His WBC: 8, HCT: 41.7, sodium: 136. His creatinine was 0.5. His blood glucose levels on admission was 513, dropped down to 313 PM. His current potassium is 4.2 Problems 1.DKA 2. Nausea and vomiting 3. Dehydration 4. Potential hypokalemia 5. Methadone dependence Plan -We would admit the patient to the GM floor, vitals per protocol -We would trend blood glucose every hour for the next 2 hours, 2 every 4 checks thereafter - -Patient is currently on normal saline @125 cc per. Switch the patient to D5 blood sugars below 250. -We will monitor the patient for the development of potential hyperkalemia. -We would start the patient 10 units of Levemir, NovoLog as needed, 6 units for sugars over 300 -Repeat BMP in the morning -Watch for hypoglycemia -iV Zofran 4mg Q4 PRN -We would confirm his methadone dose in the am DVT prophylaxis COde status: full code As Ranked By This Provider Problem List: 1. ETOH abuse 2. DKA (diabetic ketoacidoses) 3. Hyperglycemia 4. Abdominal pain 5. Nausea and vomiting 6. Dehydration 7. Opiate withdrawal 8. Methadone use Core Measures/Misc (11/17) Acute Coronary Syndrome ACS Diagnosis: No Congestive Heart Failure Congestive Heart Failure Diagnosis No Cerebrovascular Accident CVA/TIA Diagnosis: No VTE (View Protocol) VTE Risk Factors Acute Medical Illness No Mechanical VTE Prophylaxis d/t N/A MechProphylax Ordered No VTE Pharm Prophylaxis d/t NA PharmProphylax ordered Sepsis (View protocol) Sepsis Present: No If YES complete Sepsis Event Note If YES complete Sepsis Event Note Vic DAWSON,Titus 10/07/17 2242: Core Measures/Misc (11/17) Sepsis (View protocol) If YES complete Sepsis Event Note If YES complete Sepsis Event Note Resident Review Statement Resident Statement: examined this patient, discussed with phd intern Other Findings: 27-year-old gentleman with a past medical history significant for type 1 diabetes, polysubstance abuse now on methadone treatment presents to [place] ED with 1 day history of acute onset of intractable nausea/vomiting and abdominal pain. No fever, chills, hematemesis, diarrhea or blood in stool. Questionable compliance with insulin therapy (reports to be on Lantus 22 twice a day and NovoLog). At the ED patient is found to have a glucose level of 513, bicarbonate of 17 and positive urine ketones. A blood gas was not obtained however. Impression * Hyperglycemia with urine ketones and metabolic acidosis. Most likely DKA ( mild, given the bicarbonate of 17) . However, the precise definition and diagnosis criteria for DKA will require a pH from either arterial or venous blood gas. His anion gap was closed after administration of 10 units of Novolin. * Intractable nausea and vomiting. Most likely secondary to the hyperglycemia/ mild DKA. Cannabis hyperemesis is always a possible differential given the positive urine tox. * Cannabis abuse. * History of opiate dependence now on methadone treatment. Plan Admit to general medicine, given that the gap is closed and bicarbonate is now 21. Status post 3 L of normal saline, continue 150 mls per hour Mild DKA can be managed by subcutaneous insulin. Start basal Levemir 10 units twice a day for now and subcutaneous NovoLog with every 4 hours dosing Accu-Chek every 4 hours Repeated BEP now and consider every 4-6 hours If blood glucose level increase or continue to be persistent in the context of worsening bicarb or AG, low threshold to transfer to ICU for Accu-Chek 1 hour and insulin drip Zofran 4 mg every 4-6 hours as needed for nausea and vomiting Dose methadone tomorrow after confirming dose with clinic CODE STATUS: Full code DVT prophylaxis: Elia Majano MD,Bebo 10/08/17 0125: Core Measures/Misc (11/17) Sepsis (View protocol) If YES complete Sepsis Event Note If YES complete Sepsis Event Note Attending MD Review Statement Attending Statement Attending MD Statement: examined this patient, discuss w/resident/PA/BUILD MASTER, agreed w/resident/PA/BUILD MASTER Attending Assessment/Plan: Patient is seen and examined independently by me. Care plan discussed with medical geneticist and resident. I agree with the physical exam findings and plan of care as outlined above with the following changes and additions. 27 yo M with history Type 1 DM, PSA on methadone, presented with 8 hours of nausea and vomiting. Patent has vomited 10-12 times of bilious material at home. He denies blood in the vomitus. HE has mostly epigastric tenderness. He denies fever, chills, chest pain, SOB, productive cough, diarrhea or dysuria. Patient may not be compliant with his insulin intake. He is supposed to be on Lantus 22 units BID with Humalog coverage. But he states his "A1C is too high". In the ED, patient is afebrile. WBC 8.0. Glucose 513. AG 17. After regular insulin 10 units IV and NS 3 L in the ED, repeat Glucose 329 and AG 11. Patient is placed on observation on Gen Med for intractable vomiting and mild DKA. IV hydration. Start Levemir 10 units daily (given that patient has been non compliant with his insulin and not sure his exact basal need). Follow fingerstick with sliding scale coverage and titrate Levemir as needed. Monitor for K since he has history of vomiting and now with correction of glucose. Zofran prn for nausea or vomiting. Bebo Majano MD FACP
[2017-10-07 21:38] VITALS: BP 126/58
[2017-10-08 06:18] VITALS: BP 142/90
--- NOTE | 2017-10-08 07:28 | PN- Housestaff ---
Carin Kumari 10/08/17 0727: Subjective Follow-up For: DKA, nausea and vomiting Subjective: Patient was seen and examined at bedside. He appeared to be in moderate distress, was throwing up when I entered the room. Mother reports that he has been throwing at least 1-2 times every hour since last night. He got it again and 513 morning and his an hour ago. None of them seem to be helping. The vomiting is bilious, green in color associated with nausea. The patient does not notice any blood in the vomitus. However, he does complain of severe abdominal pain, from all throwing. He states that the only thing that relaxes him is taking showers and he has already taken 3 this morning. He says his mouth is really dry and even played some ice chips, and some gum, and something to drink. The mother says that, his first episode of DKA was bad, this has been the worst since. Patient also sees he 4 out of 10 for his methadone today, and he thinks he threw all of them up. Patient denies fever, chills, chest pain, respiratory distress at this time. Review of Systems Constitutional: Reports: see HPI. Objective Last 24 Hrs of Vital Signs/I&O Vital Signs Date Time Temp Pulse Resp B/P B/P Pulse O2 O2 Flow FiO2 Mean Ox Delivery Rate 10/08 0618 100.3 84 20 142/90 99 Room Air 10/07 2138 99.7 91 17 126/58 99 Room Air 10/07 2051 98.3 83 14 131/79 98 Room Air 10/07 1730 98.2 85 20 160/80 98 10/07 1445 98.1 99 16 168/87 100 Room Air 10/07 1300 65 20 159/89 97 Room Air 10/07 1039 97.4 67 20 140/90 98 Room Air Intake & Output 10/08 1600 10/08 0800 10/08 0000 Intake Total 1200 3100 Output Total 1500 1650 Balance -300 1450 Intake, IV 1200 3100 Intake, Oral 0 0 Output, 250 Emesis Output, Urine 1500 1400 Patient 185 lb Weight Physical Exam General Appearance: Alert, Oriented X3, Cooperative, Moderate Distress Skin: No Rashes Skin Temp/Moisture Exam: Cool/Dry Neck: Supple Cardiovascular: Regular Rate, Normal S1, Normal S2 Lungs: Clear to Auscultation Abdomen: Normal Bowel Sounds, mild epigastric tenderness Extremities: No Edema, Normal Pulses Assessment/Plan Assessment: 27-year-old male with past medical history of diabetes mellitus, polysubstance abuse and methadone dependence is admitted for the management of DKA. The patient presented to the ED yesterday with intractable nausea and vomiting. He has been given multiple doses of Tigan/Zofran, but his vomiting has not been relieved. The patient is throwing up 1-2 times every other. He does complain of some pain in the epigastric region. According to the mother, the patient does have a history if gastroparesis. We would consider gstroparesis as one of our differentials for the intractable nausea and vomiting. On examination, mucous membranes are grossly dry. There is mild tenderness in the epigastric region. Vitals are stable. His blood sugar was 263 5:42 AM in the morning. It came down to 228 when he was last checked 8:15 AM. Patient was n.p.o. since yesterday. He was started on clear liquids this morning. Problems 1. DKA 2. Metabolic acidosis 3. Nausea and vomiting 5. History of gastroparesis 4. Methadone dependence Plan: 1. DKA -Patient had BLood glucose of 516 on admission. His most recent blood glucose was 228 at 8AM. - Urine was positive for ketones on addmission, HCO3 is 16 as of now. -We would maintain adequate hydration for the patient: the patient is currently on D5 @ 150cc an hour. We will taper it off if the patient is able to tolerate clear liquids by mouth. -We will start the patient on Normal Saline @ 100cc an hour -His Serum K is 4.0. We will keep monitoring him for hypokalemia -We will request an Endocrinology consult and follow recommendations for insulin dose -ACCU checks 4 hours for now -We would closely monitor patient for signs of signs of ketosis and manage accordingly. -The patient does not need an insulin drip as of now. We would consider it if his condition worsens 2.Metabolic Acidosis -We will correct the underlying etiology -We will closely monitor the anion gap -We will order an ABG if the patient displays signs of respiratory distress 3. Nausea and Vomiting -Zofran 4mg IV Q4 PRN -Tigan PRN -We will monitor the patient for signs of dehydration -We would repeat a BEP in the evening 4. History of gastroparesis -The patient does have a history of gastroparesis given his DM -We would give the patient iv Metoclopramide and check for the improvement of symptoms -We would consider an EGD and a manometery if his symptoms do not improve 5. Methadone dependence -We would confirm Methadone dose for the patient -We would monitor him for signs of withdrawal DVT prophylaxis COde status: full code Clear liquid diet, advance diet as tolerated - Problem List: 1. Methadone dependence 2. Nausea & vomiting 3. DKA (diabetic ketoacidoses) Pain Ratin Pain Location: epigastric region Pain Goal: Remain pain free Pain Plan: pathway Tomorrow's Labs & Rationales: cbc and bep with electrolytes Sandy Murillo 10/08/17 0959: Attending MD Review Statement Attending Statement Attending MD Statement: examined this patient, discuss w/resident/PA/NUT PICKER, agreed w/resident/PA/NUT PICKER, discussed with family, reviewed EMR data (avail), discussed with nursing, discussed with case mgmt, reviewed images, amended to note Attending Assessment/Plan: Agree with above. Patient need >2 midnight stay in presence of his ongoing symtpoms and requirement of IVF and antiemetics. Endo consult for DKA with possible gastroparesis.
--- NOTE | 2017-10-08 12:50 | Cons- Endocrinology ---
General Information and HPI Consulting Request Date of Consult: 10/08/17 Requested By: medical staff Reason for Consult: uncontrolled diabetes type 1 Source of Information: patient, old records Exam Limitations: poor historian History of Present Illness: This 27-year-old male has a known history of diabetes mellitus type 1. He is noncompliant on his diabetic regimen and is very poor on his follow-up in the office. He has had episodes of ketoacidosis in the past. According to his last note with Dr. Talbert he is supposed to be on Lantus 24 units twice a day and NovoLog before meals. The patient came to the hospital because of intractable nausea and vomiting. He also complains of epigastric discomfort. He does have a history of diabetic gastroparesis. In addition he had not taken his methadone for a few days and probably had narcotic withdrawal as well. Upon admission his anion gap was mildly elevated and his bicarbonate was 17. He has been treated with subcu insulin. Today his serum sodium has gone down from 134 on admission to 130. Patient also has a history of polysubstance abuse and is presently on methadone. Allergies/Medications Allergies: Coded Allergies: dog dander (HIVES 02/25/17) Home Med List: Cyclobenzaprine HCl 10 MG TABLET 1 TAB PO QPM PRN muscle strain Ibuprofen 600 MG TABLET 1 TAB PO Q6PRN PRN pain with food Insulin Glargine,Hum.rec.anlog (Lantus Solostar) 100 UNIT/ML (3 ML) INSULN.PEN 40 UNIT SC DAILY DIABETES (Reported) Insulin Lispro (Humalog Kwikpen U-100) (Unknown Strength) INSULN.PEN (Unknown Dose) SC SEE SLIDING SCALE DIABETES (Reported) Meclizine HCl 25 MG TABLET 1 TAB PO TIDPRN PRN dizziness Meloxicam (Mobic) 15 MG TABLET 1 TAB PO DAILY PRN pain Methylprednisolone. (Medrol) 4 MG TAB.DS.PK 1 DP PO AD INFLAMMATION 6 on day 1 then reduce by one tablet daily until gone Metoclopramide HCl (Reglan) 10 MG TABLET 1 TAB PO Q6 PRN NAUSEA/VOMITING 30 minutes before meals and bedtime Ondansetron (Zofran Odt) 4 MG TAB.RAPDIS 1 TAB SL TID PRN nausea Promethazine HCl 25 MG TABLET 1 TAB PO Q6P PRN NAUSEA/VOMITING Scopolamine 1 MG/3 DAY PATCH.TD.3 1 PATCH TOP Q72 PRN dizziness Tramadol HCl (Ultram) 50 MG TABLET 1-2 TAB PO Q6PRN PRN severe pain Review of Systems Review of Systems Constitutional: Denies: chills, fever. Cardiovascular: Denies: chest pain, palpitations. Respiratory: Denies: cough, short of breath. GI: Reports: abdominal pain, nausea, vomiting. Genitourinary: Reports: no symptoms. Skin: Reports: no symptoms. Neurological/Psychological: Reports: anxiety. Past History Travel History Traveled to [place] past 21 day No Medical History Blood Transfusion Hx: No Neurological: NONE EENT: NONE Cardiovascular: Heart murmur Respiratory: NONE Gastrointestinal: alcoholic gastritis Hepatic: NONE Renal: NONE Musculoskeletal: NONE Psychiatric: anxiety, depression, ON METHADONE Endocrine: Diabetes type 1 PANCREATITIS Blood Disorders: NONE Cancer(s): NONE FIRE CONTROL ASSISTANT/Reproductive: NONE Other Medical Hx: methadone maintenance Surgical History Surgical History: tonsillectomy Family History Relations & Conditions If Any: grandfather FH: diabetes mellitus MOTHER (hx GERD). Age 45. Thyroiditis FATHER (medical hx unknown - not seen x years.). Age 48. Psychosocial History Where Do You Live? Home Who Do You Live With? BROTHER Services at Home: NONE Primary Language: Stateless Smoking Status: Current Everyday Smoker ETOH Use: denies use Illicit Drug Use: denies illicit drug use Living Will? no Power of Global Upstream Marketing Manager/HCP? unknown Functional Ability ADLs Independent: dressing, eating, toileting, bathing. Ambulation: independent IADLs Independent: shopping, housework, finances, food prep, telephone, transportation , medication admin. Exam & Diagnostic Data Last 24 Hrs of Vital Signs/I&O Vital Signs Date Time Temp Pulse Resp B/P B/P Pulse O2 O2 Flow FiO2 Mean Ox Delivery Rate 10/09 799 98.6 10/08 0618 100.3 84 20 142/90 99 Room Air 10/07 2138 99.7 91 17 126/58 99 Room Air 10/07 2051 98.3 83 14 131/79 98 Room Air 10/07 1730 98.2 85 20 160/80 98 10/07 1445 98.1 99 16 168/87 100 Room Air 10/07 1300 65 20 159/89 97 Room Air Intake & Output 10/08 1600 10/08 0810/08 0000 Intake Total 1200 3100 Output Total 1500 1650 Balance -300 1450 Intake, IV 1200 3100 Intake, Oral 0 0 Output, 250 Emesis Output, Urine 1500 1400 Patient 190 lb 185 lb Weight Weight Reported by Patient Measurement Method Physical Exam General Appearance: alert, awake, comfortable Head: normal appearance Neck: normal inspection Respiratory: normal breath sounds Cardiovascular: regular rate/rhythm Gastrointestinal: normal bowel sounds, soft, tenderness (epigastric) Extremities: normal inspection Labs/Arturo Results: Laboratory Tests 10/08 10/08 10/08 10/07 10/07 0945 0607 0128 2045 1443 Chemistry Sodium (137 - 145 mmol/L) 130 L 134 L 132 L 136 L Potassium (3.5 - 5.1 mmol/L) 4.0 4.0 4.7 4.2 Chloride (98 - 107 mmol/L) 99 103 101 104 Carbon Dioxide (22 - 30 mmol/L) 16 L 17 L 14 L 21 L Anion Gap (5 - 16) 14 14 16 11 BUN (9 - 20 mg/dL) 12 10 10 11 Creatinine (0.7 - 1.2 mg/dL) 0.5 L 0.5 L 0.5 L 0.5 L Estimated GFR (>60 ml/min) > 60 > 60 > 60 > 60 BUN/Creatinine Ratio (7 - 25 %) 24.0 20.0 20.0 22.0 Glucose (65 - 99 mg/dL) 329 H Hemoglobin A1c (4.2 - 5.8 %) 12.2 H Calcium (8.4 - 10.2 mg/dL) 9.5 Phosphorus (2.5 - 4.5 mg/dL) 4.6 H Total Bilirubin (0.2 - 1.3 mg/dL) 0.4 AST (17 - 59 U/L) 22 ALT (21 - 72 U/L) 24 Alkaline Phosphatase (< 127 U/L) 156 H Total Protein (6.3 - 8.2 g/dL) 7.1 Albumin (3.5 - 5.0 g/dL) 4.2 Globulin (1.9 - 4.2 gm/dL) 2.9 Albumin/Globulin Ratio (1.1 - 2.2 %) 1.4 10/07 10/07 1212 1100 Chemistry Sodium (137 - 145 mmol/L) 134 L Potassium (3.5 - 5.1 mmol/L) 4.6 Chloride (98 - 107 mmol/L) 100 Carbon Dioxide (22 - 30 mmol/L) 17 L Anion Gap (5 - 16) 17 H BUN (9 - 20 mg/dL) 10 Creatinine (0.7 - 1.2 mg/dL) 0.5 L Estimated GFR (>60 ml/min) > 60 BUN/Creatinine Ratio (7 - 25 %) 20.0 Glucose (65 - 99 mg/dL) 513 *H Hemoglobin A1c (4.2 - 5.8 %) 12.2 H Calcium (8.4 - 10.2 mg/dL) 10.4 H Total Bilirubin (0.2 - 1.3 mg/dL) 0.6 AST (17 - 59 U/L) 20 ALT (21 - 72 U/L) 26 Alkaline Phosphatase (< 127 U/L) 174 H Total Protein (6.3 - 8.2 g/dL) 7.4 Albumin (3.5 - 5.0 g/dL) 4.6 Globulin (1.9 - 4.2 gm/dL) 2.8 Albumin/Globulin Ratio (1.1 - 2.2 %) 1.6 Amylase (30 - 110 U/L) 137 H Lipase (23 - 300 U/L) 13 L Hematology CBC w Diff NO MAN DIFF REQ WBC (4.8 - 10.8 /CUMM) 8.0 RBC (4.70 - 6.10 /CUMM) 4.75 Hgb (14.0 - 18.0 G/DL) 14.5 Hct (42 - 52 %) 41.7 L MCV (80.0 - 94.0 FL) 87.8 MCH (27.0 - 31.0 PG) 30.6 MCHC (33.0 - 37.0 G/DL) 34.9 RDW (11.5 - 14.5 %) 12.8 Plt Count (130 - 400 /CUMM) 278 MPV (7.4 - 10.4 FL) 9.7 Gran % (42.2 - 75.2 %) 81.4 H Lymphocytes % (20.5 - 51.1 %) 14.7 L Monocytes % (1.7 - 9.3 %) 3.3 Eosinophils % (0 - 5 %) 0.1 Basophils % (0.0 - 2.0 %) 0.5 Absolute Granulocytes (1.4 - 6.5 /CUMM) 6.5 Absolute Lymphocytes (1.2 - 3.4 /CUMM) 1.2 Absolute Monocytes (0.10 - 0.60 /CUMM) 0.3 Absolute Eosinophils (0.0 - 0.7 /CUMM) 0 Absolute Basophils (0.0 - 0.2 /CUMM) 0 Toxicology Urine Opiates Screen (>2000 NG/ML) < 100 Methadone Screen (>300 NG/ML) 184 Barbiturate Screen (>200 NG/ML) < 60 Ur Phencyclidine Scrn (>25 NG/ML) < 6.00 Amphetamines Screen (>1000 NG/ML) < 100 U Benzodiazepines Scrn (>200 NG/ML) < 85 Urine Cocaine Screen (>300 NG/ML) < 50 Urine Cannabis Screen (>50 NG/ML) > 80.00 H Serum Alcohol (<10 MG/DL) < 10.0 Urines Urine Color (YEL,AMB,STR) STRAW Urine Clarity (CLEAR) CLEAR Urine pH (5.0 - 8.0) 7.0 Ur Specific [place] (1.001 - 1.035) 1.010 Urine Protein (NEG,<30 MG/DL) NEG Urine Ketones (NEG) >=80 Urine Nitrite (NEG) NEG Urine Bilirubin (NEG) NEG Urine Urobilinogen (0.1 - 1.0 EU/dl) 0.2 Ur Leukocyte Esterase (NEG) NEG Ur Microscopic EXAM NOT REQUIRED Urine Hemoglobin (NEG) NEG Urine Glucose (N MG/DL) >=1000 H Assessment/Plan Assessment/Plan This 27-year-old male with a known history of type 1 diabetes presents with nausea and vomiting. He did have a mildly elevated anion gap and decreased bicarbonate on admission consistent with early or mild ketoacidosis. Nausea and vomiting was probably due to uncontrolled diabetes, early ketoacidosis, and also narcotic withdrawal as he has not taken his methadone prior to admission. He has been treated with subcu insulin and his anion gap has closed. His bicarbonate remains at 16. The patient also developed hyponatremia which has become worse after admission. He is now on normal saline. He has been started on clear liquids. Review of his most recent blood sugars revealed that the were 172 at 4 AM to 228 at 8 AM and 249 at 10 AM. The patient is presently on Levemir 10 units twice a day along with sliding scale NovoLog every 4 hours starting with a sugar above 150. I would consider placing the patient on metoclopramide 10 mg IV every 6 hours. If he continues to vomit we should offer him a source of calories in his IV. If he is not able to tolerate clear liquids as a source of calories, I would change his IV to D5 normal saline with 20 of KCl at 100 cc/h. I would continue Levemir 10 units twice a day and the present sliding scale NovoLog regimen. Once he is eating again we will switch the NovoLog to before meals. I would recheck his labs later today including his anion gap and serum sodium. Consult Acknowledgment - Thank you for your consult request.
[2017-10-08 14:04] VITALS: BP 100/80
[2017-10-08 21:56] VITALS: BP 118/80
[2017-10-09 06:23] VITALS: BP 174/104
[2017-10-09 07:00] VITALS: BP 158/100
--- NOTE | 2017-10-09 07:23 | PN- Housestaff ---
Carin Kumari 10/09/17 0723: Subjective Follow-up For: DKA, nausea, vomiting Subjective: Patient was seen and examined at bedside. He was doing pretty well yesterday, was able to keep down liquids with his nausea and vomiting improved. However, this morning at 9.2 cm the patient was vomiting incessantly. The vomitus is bilious, green in color. The patient was in moderate distress. Then he is not able to eat anything today. He denies fever, chills, diarrhea, constipation, shortness of breath, palpitations. Review of Systems Constitutional: Reports: see HPI. Objective Last 24 Hrs of Vital Signs/I&O Vital Signs Date Time Temp Pulse Resp B/P B/P Pulse O2 O2 Flow FiO2 Mean Ox Delivery Rate 10/09 0700 158/100 10/09 0623 99.0 64 18 174/104 100 10/08 2156 98.2 58 16 118/80 95 Room Air 10/08 1404 98.0 80 18 100/80 98 Room Air Intake & Output 10/09 1600 10/09 0800 10/09 0000 Intake Total 1700 2200 Output Total 200 1400 3200 Balance -200 300 -1000 Intake, IV 1200 1200 Intake, Oral 500 1000 Number 0 Bowel Movements Output, 200 400 Emesis Output, Urine 1000 3200 Physical Exam General Appearance: Alert, Oriented X3, Cooperative, Moderate Distress Skin: No Rashes Neck: Supple Cardiovascular: Regular Rate, Normal S1, Normal S2 Lungs: Clear to Auscultation, Normal Air Movement Abdomen: Soft, No Tenderness Assessment/Plan Assessment: 27-year-old male with past medical history of diabetes mellitus, polysubstance abuse and methadone dependence is admitted for the management of DKA. The patient did better yesterday. He was able to tolerate a clear liquid diet. However, in today, he had green, billious inccessant vomiting, not relieved by Zofran. The patient is currently on high dose Zofran and Reglan, but is not improving. Vitals are stable. His blood sugar was at a low of 91 in the morning. He had a blood pressure of 170/100 in the morning which spontaneously came down to 150/90 after an hour. Problems 1. DKA 2. Metabolic acidosis 3. Nausea and vomiting 5. History of gastroparesis 4. Methadone dependence Plan: 1. DKA -Patient had BLood glucose of 516 on admission. His blood glucose was 91 in the morning today. - Urine was positive for ketones on addmission, H -Endocrine consult appreciated. We will start the patient on D5 @ 100 an hour with 20 mEq of Potassium. We would continue with Reglan Q6h -We will keep monitoring him for hypokalemia -We will continue the same dose of Levemir and would start the patient on Novolog once he starts eating. -ACCU checks 4 hours for now -We have placed GI consult per Endo recomemendations for intractable vomiting. 2.Metabolic Acidosis -The anion gap has closed for the patient -We will order an ABG if the patient displays signs of respiratory distress 3. Nausea and Vomiting -Zofran 4mg IV Q4 PRN -Tigan PRN -We have placed a GI consult for recommendation for consideration more prokinetic agents like Erythromycin for the intractable vomiting. -We would repeat a BEP in the evening 4. History of gastroparesis -The patient does have a history of gastroparesis given his DM -We would give the patient iv Metoclopramide and check for the improvement of symptoms -We would consider an EGD and a manometery if his symptoms do not improve -GI consult placed.We will follow up recommendations 5. Methadone dependence -We would confirm Methadone dose for the patient -We would monitor him for signs of withdrawal 6.Hyponatremia -The patient had a drop in his Na levels since addmission -Endo input appreciated. We will do Thyroid hormone levels and run cortisol levels in mando AM tomorrow. DVT prophylaxis COde status: full code Clear liquid diet, advance diet as tolerated Problem List: 1. Hyponatremia 2. Methadone dependence 3. Nausea & vomiting 4. DKA (diabetic ketoacidoses) 5. Diabetic gastroparesis Pain Ratin Pain Location: na Pain Goal: Remain pain free Pain Plan: na Tomorrow's Labs & Rationales: cbc, bep, thyroid hormone, AM cortisol Sandy Murillo 10/09/17 1005: Attending Review Statement Attending Statement Attending MD Statement: examined this patient, discuss w/resident/PA/RIP MACHINE OPERATOR, agreed w/resident/PA/RIP MACHINE OPERATOR, discussed with family, reviewed EMR data (avail), discussed with nursing, discussed with case mgmt, reviewed images, amended to note Attending Assessment/Plan: Patient with pmh of Diabetes mellitus insulin dependent with history of gastroparesis as per endocrinology/PCP, methadone use comes with intractable nausea and vomiting and possible gastroparesis exacerbation with hyperglycemia and metabolic acidosis with Mild DKA. Patient admited to inpatient medical services. Continue with IVF, iv reglan standing 10 mg q 6 , iv zofran 4mg prn. He is requiring high doses of reglan and zofran for his symtpmatic management. Appreciate endocrinology and follow further recommendations needing glucose control. GI consult. Continue current care..
--- NOTE | 2017-10-09 07:43 | PN- Diabetes ---
Assessment/Plan Diabetes Assessment: The patient states the vomiting is a little improved. However he is retching this morning and the nurse reports that he did have 1 or 2 episodes of vomiting during the night. He is on Reglan 10 mg IV every 6 hours and Protonix. He was started on some clear liquids yesterday and he states he Of Them down. The Patient Is on Normal Saline As Well As Levemir 10 Units Twice a Day and Sliding Scale NovoLog Every 4 Hours. His Blood Sugars Have Become Somewhat Low with 91 at 1:30 in the Morning and 132 at 5:23 AM. The patient's anion gap remains closed and his bicarb has risen to 22. Plan: Suggest change the patient's IV to D5 half-normal saline with 20 mEq KCl at 100 cc/h. This will provide a source of calories with glucose to counteract the insulin so that his sugar does not get too low. Continue the present insulin for now. Continue IV Reglan. Suggest GI consult for further management of the persistent vomiting and gastroparesis. In view of the hyponatremia I would check the patient's thyroid function tests and an a.m. cortisol level. Subjective Subjective: Vomiting begins when I move around Review of Systems Constitutional: Denies: chills, fever. Cardiovascular: Denies: chest pain. Gastrointestinal: Reports: nausea, vomiting. Denies: abdominal pain. Skin: Reports: no symptoms. Objective Last 24 Hrs of Vital Signs/I&O Vital Signs Date Time Temp Pulse Resp B/P B/P Pulse O2 O2 Flow FiO2 Mean Ox Delivery Rate 10/09 0623 99.0 64 18 174/104 100 10/08 2156 98.2 58 16 118/80 95 Room Air 10/08 1404 98.0 80 18 100/80 98 Room Air 10/08 0800 98.6 Intake & Output 10/09 0800 10/09 0000 10/08 1600 Intake Total 1700 2200 2100 Output Total 1000 2000 2150 Balance 700 200 -50 Intake, IV 1200 1200 1200 Intake, Oral 500 1000 900 Number 0 0 Bowel Movements Output, 200 Emesis Output, Urine 1000 2000 1950 Patient 190 lb Weight Weight Reported by Patient Measurement Method Physical Exam General Appearance: alert, awake Head: normal appearance Neck: normal inspection Respiratory: normal breath sounds Abdomen: normal bowel sounds Extremities: normal inspection Current Medications: Current Medications Sig/Jenni Start time Last Medication Dose Route Stop Time Status Admin Acetaminophen 650 MG Q6P PRN 10/07 2100 AC PO Dextrose/Sodium 1,000 ML Q6H 10/08 0130 DC 10/08 [place] 0132 Heparin Sodium 5,000 UNIT Q8 10/08 06 AC (Porcine) SC Insulin Aspart 5 UNITS ONCE ONE 10/08 829 DC 10/08 SC 10/08 0831 0859 Insulin Aspart 0 Q4 10/08 020 AC 10/08 SC 213 Insulin Detemir 10 UNITS BID 10/07 2014 AC 10/08 SC 212 Methadone HCl 100 MG ONCE ONE 10/09 0745 AC PO 10/09 0746 Methadone HCl 100 MG ONCE ONE 10/08 829 DC 10/08 PO 10/08 0831 0856 Metoclopramide HCl 10 MG 0400,1000,1600,2200 10/08 1600 AC 10/09 IV 0431 Metoclopramide HCl 10 MG Q6 10/08 1430 DC IV Metoclopramide HCl 10 MG ONCE ONE 10/08 929 DC 10/08 IV 10/08 0931 0957 Omeprazole 40 MG DAILY AC 10/08 0852 AC 10/09 PO 0527 Ondansetron HCl 4 MG Q4-6 PRN PRN 10/07 1915 AC 10/09 IV 0526 Potassium Chloride 20 MEQ Q10H 10/09 0745 AC Dextrose/Water 1,000 ML IV Potassium Chloride 20 MEQ CONTINOUS INFUSION 10/08 1515 CAN IV Sodium Chloride 1,000 ML Q10H 10/08 0900 AC 10/09 IV 0433 Trimethobenzamide HCl 200 MG 4 TIMES/DAY PRN 10/08 0345 AC 10/08 IM 0527 Findings Pertinent Lab/Arturo Results: Laboratory Tests 10/08 10/08 10/08 10/08 10/07 1835 0945 0607 0128 2045 Chemistry Sodium (137 - 145 mmol/L) 133 L 130 L 134 L 132 L Potassium (3.5 - 5.1 mmol/L) 3.9 4.0 4.0 4.7 Chloride (98 - 107 mmol/L) 104 99 103 101 Carbon Dioxide (22 - 30 mmol/L) 22 16 L 17 L 14 L Anion Gap (5 - 16) 8 14 14 16 BUN (9 - 20 mg/dL) 7 L 12 10 10 Creatinine (0.7 - 1.2 mg/dL) 0.4 L 0.5 L 0.5 L 0.5 L Estimated GFR (>60 ml/min) > 60 > 60 > 60 > 60 BUN/Creatinine Ratio (7 - 25 %) 17.5 24.0 20.0 20.0 Hemoglobin A1c (4.2 - 5.8 %) 12.2 H Phosphorus (2.5 - 4.5 mg/dL) 4.6 H 08/07 08/07 1443 1212 Chemistry Sodium (137 - 145 mmol/L) 136 L Potassium (3.5 - 5.1 mmol/L) 4.2 Chloride (98 - 107 mmol/L) 104 Carbon Dioxide (22 - 30 mmol/L) 21 L Anion Gap (5 - 16) 11 BUN (9 - 20 mg/dL) 11 Creatinine (0.7 - 1.2 mg/dL) 0.5 L Estimated GFR (>60 ml/min) > 60 BUN/Creatinine Ratio (7 - 25 %) 22.0 Glucose (65 - 99 mg/dL) 329 H Calcium (8.4 - 10.2 mg/dL) 9.5 Total Bilirubin (0.2 - 1.3 mg/dL) 0.4 AST (17 - 59 U/L) 22 ALT (21 - 72 U/L) 24 Alkaline Phosphatase (< 127 U/L) 156 H Total Protein (6.3 - 8.2 g/dL) 7.1 Albumin (3.5 - 5.0 g/dL) 4.2 Globulin (1.9 - 4.2 gm/dL) 2.9 Albumin/Globulin Ratio (1.1 - 2.2 %) 1.4 Toxicology Urine Opiates Screen (>2000 NG/ML) < 100 Methadone Screen (>300 NG/ML) 184 Barbiturate Screen (>200 NG/ML) < 60 Ur Phencyclidine Scrn (>25 NG/ML) < 6.00 Amphetamines Screen (>1000 NG/ML) < 100 U Benzodiazepines Scrn (>200 NG/ML) < 85 Urine Cocaine Screen (>300 NG/ML) < 50 Urine Cannabis Screen (>50 NG/ML) > 80.00 H Urines Urine Color (YEL,AMB,STR) STRAW Urine Clarity (CLEAR) CLEAR Urine pH (5.0 - 8.0) 7.0 Ur Specific [place] (1.001 - 1.035) 1.010 Urine Protein (NEG,<30 MG/DL) NEG Urine Ketones (NEG) >=80 Urine Nitrite (NEG) NEG Urine Bilirubin (NEG) NEG Urine Urobilinogen (0.1 - 1.0 EU/dl) 0.2 Ur Leukocyte Esterase (NEG) NEG Ur Microscopic EXAM NOT REQUIRED Urine Hemoglobin (NEG) NEG Urine Glucose (N MG/DL) >=1000 H 08/07 1100 Chemistry Sodium (137 - 145 mmol/L) 134 L Potassium (3.5 - 5.1 mmol/L) 4.6 Chloride (98 - 107 mmol/L) 100 Carbon Dioxide (22 - 30 mmol/L) 17 L Anion Gap (5 - 16) 17 H BUN (9 - 20 mg/dL) 10 Creatinine (0.7 - 1.2 mg/dL) 0.5 L Estimated GFR (>60 ml/min) > 60 BUN/Creatinine Ratio (7 - 25 %) 20.0 Glucose (65 - 99 mg/dL) 513 *H Hemoglobin A1c (4.2 - 5.8 %) 12.2 H Calcium (8.4 - 10.2 mg/dL) 10.4 H Total Bilirubin (0.2 - 1.3 mg/dL) 0.6 AST (17 - 59 U/L) 20 ALT (21 - 72 U/L) 26 Alkaline Phosphatase (< 127 U/L) 174 H Total Protein (6.3 - 8.2 g/dL) 7.4 Albumin (3.5 - 5.0 g/dL) 4.6 Globulin (1.9 - 4.2 gm/dL) 2.8 Albumin/Globulin Ratio (1.1 - 2.2 %) 1.6 Amylase (30 - 110 U/L) 137 H Lipase (23 - 300 U/L) 13 L Hematology CBC w Diff NO MAN DIFF REQ WBC (4.8 - 10.8 /CUMM) 8.0 RBC (4.70 - 6.10 /CUMM) 4.75 Hgb (14.0 - 18.0 G/DL) 14.5 Hct (42 - 52 %) 41.7 L MCV (80.0 - 94.0 FL) 87.8 MCH (27.0 - 31.0 PG) 30.6 MCHC (33.0 - 37.0 G/DL) 34.9 RDW (11.5 - 14.5 %) 12.8 Plt Count (130 - 400 /CUMM) 278 MPV (7.4 - 10.4 FL) 9.7 Gran % (42.2 - 75.2 %) 81.4 H Lymphocytes % (20.5 - 51.1 %) 14.7 L Monocytes % (1.7 - 9.3 %) 3.3 Eosinophils % (0 - 5 %) 0.1 Basophils % (0.0 - 2.0 %) 0.5 Absolute Granulocytes (1.4 - 6.5 /CUMM) 6.5 Absolute Lymphocytes (1.2 - 3.4 /CUMM) 1.2 Absolute Monocytes (0.10 - 0.60 /CUMM) 0.3 Absolute Eosinophils (0.0 - 0.7 /CUMM) 0 Absolute Basophils (0.0 - 0.2 /CUMM) 0 Toxicology Serum Alcohol (<10 MG/DL) < 10.0
[2017-10-09 12:07] LABS: ABSOLUTE BASOPHIL COUNT 0 /CUMM (0.0-0.2); ABSOLUTE EOSINOPHIL COUNT 0 /CUMM (0.0-0.7); ABSOLUTE GRANULOCYTE CT 7.3 /CUMM (1.4-6.5); ABSOLUTE MONOCYTE COUNT 0.3 /CUMM (0.10-0.60); BASOPHIL % 0.1 % (0.0-2.0); EOSINOPHIL % 0.1 % (0-5); GRANULOCYTE % 85.4 % (42.2-75.2); MEAN CORPUSCULAR HGB 30.8 PG (27.0-31.0); MEAN CORPUSCULAR HGB CONC 34.4 G/DL (33.0-37.0); MEAN CORPUSCULAR VOLUME 89.4 FL (80.0-94.0); MEAN PLATELET VOLUME 9.8 FL (7.4-10.4); PLATELET COUNT 231 /CUMM (130-400); RBC DISTRIBUTION WIDTH 13.2 % (11.5-14.5); RED BLOOD CELL CT 4.04 /CUMM (4.70-6.10); WHITE BLOOD CELL COUNT 8.6 /CUMM (4.8-10.8)
[2017-10-09 12:15] LABS: HEMATOCRIT 36.1 % (42-52)
[2017-10-09 14:00] VITALS: BP 120/86
--- NOTE | 2017-10-09 16:01 | Cons- Gastroenterology ---
General Information and HPI Consulting Request Date of Consult: 10/09/17 Requested By: Sandy Murillo MD Reason for Consult: Nausea and vomiting, history of gastroparesis. Source of Information: patient, old records Exam Limitations: no limitations History of Present Illness: Mr. Mendez is a 27 year old male with a PMH significant for type I DM on insulin with diabetic gastroparesis and polysubstance abuse currently on methadone who was admitted to on 10/07/17 with hyperglycemia when he presented with epigastric discomfort along with complaints of nausea and vomiting. He was given one dose of subcutaneous insulin with improvement in his hyperglycemia and he been observed on the floor getting IV reglan, IV tigan and IV zofran as needed which had been helping, but this am he further vomiting prompting GI consultation. He notes that his current symptoms are consistent with his prior flares of gastroparesis with the last episode occuring last November at which point he underwent an EGD by Dr. Richards that showed left over food without a mechanical obstruction. He has been without any hematemesis, and he also denies heartburn, dysphagia or significant abdominal pain. Since the vomiting this am he has been doing relatively well on liquids without any further vomiting. Allergies/Medications Allergies: Coded Allergies: dog dander (HIVES 02/25/17) Home Med List: Cyclobenzaprine HCl 10 MG TABLET 1 TAB PO QPM PRN muscle strain Ibuprofen 600 MG TABLET 1 TAB PO Q6PRN PRN pain with food Insulin Glargine,Hum.rec.anlog (Lantus Solostar) 100 UNIT/ML (3 ML) INSULN.PEN 40 UNIT SC DAILY DIABETES (Reported) Insulin Lispro (Humalog Kwikpen U-100) (Unknown Strength) INSULN.PEN (Unknown Dose) SC SEE SLIDING SCALE DIABETES (Reported) Meclizine HCl 25 MG TABLET 1 TAB PO TIDPRN PRN dizziness Meloxicam (Mobic) 15 MG TABLET 1 TAB PO DAILY PRN pain Methylprednisolone. (Medrol) 4 MG TAB.DS.PK 1 DP PO AD INFLAMMATION 6 on day 1 then reduce by one tablet daily until gone Metoclopramide HCl (Reglan) 10 MG TABLET 1 TAB PO Q6 PRN NAUSEA/VOMITING 30 minutes before meals and bedtime Ondansetron (Zofran Odt) 4 MG TAB.RAPDIS 1 TAB SL TID PRN nausea Promethazine HCl 25 MG TABLET 1 TAB PO Q6P PRN NAUSEA/VOMITING Scopolamine 1 MG/3 DAY PATCH.TD.3 1 PATCH TOP Q72 PRN dizziness Tramadol HCl (Ultram) 50 MG TABLET 1-2 TAB PO Q6PRN PRN severe pain Current Medications: Current Medications Sig/Jenni Start time Last Medication Dose Route Stop Time Status Admin Acetaminophen 650 MG Q6P PRN 10/07 2100 AC PO Dextrose/Sodium 1,000 ML Q10H 10/09 899 DC Chloride IV Heparin Sodium 5,000 UNIT Q8 10/08 599 AC (Porcine) SC Insulin Aspart 0 Q4 10/08 0200 AC 10/09 SC 1436 Insulin Detemir 10 UNITS BID 10/07 2014 AC 10/09 SC 1017 Methadone HCl 100 MG ONCE ONE 10/09 744 DC 10/09 PO 10/09 0746 0832 Metoclopramide HCl 10 MG 0400,1000,1600,2200 10/08 1600 AC 10/09 IV 1017 Omeprazole 40 MG DAILY AC 10/08 0852 AC 10/09 PO 0527 Ondansetron HCl 4 MG Q4-6 PRN PRN 10/07 1915 AC 10/09 IV 0817 Patient Medication 1 ED ONE ONE 10/09 1100 DC 10/09 Teaching ED 10/09 1101 1110 Potassium Chloride 20 MEQ CONTINOUS INFUSION 10/09 1530 UNVr IV Potassium Chloride 20 MEQ Q10H 10/09 0745 DC 10/09 Dextrose/Water 1,000 ML IV 0952 Sodium Chloride 1,000 ML Q10H 10/08 09 DC 10/09 IV 0433 Trimethobenzamide HCl 200 MG 4 TIMES/DAY PRN 10/08 0345 AC 10/08 IM 0527 Past History Travel History Traveled to [place] past 21 day No Medical History Blood Transfusion Hx: No Neurological: NONE EENT: NONE Cardiovascular: Heart murmur Respiratory: NONE Gastrointestinal: alcoholic gastritis Hepatic: NONE Renal: NONE Musculoskeletal: NONE Psychiatric: anxiety, depression, ON METHADONE Endocrine: Diabetes type 1 PANCREATITIS Blood Disorders: NONE Cancer(s): NONE 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 Age 45. Thyroiditis FATHER (medical hx unknown - not seen x years.). Age 48. Psychosocial History Where Do You Live? Home Who Do You Live With? BROTHER Services at Home: NONE Primary Language: [place] Smoking Status: Current Everyday Smoker ETOH Use: denies use Illicit Drug Use: denies illicit drug use Living Will? no Power of Ehs Engineer/HCP? unknown Functional Ability ADLs Independent: dressing, eating, toileting, bathing. Ambulation: independent IADLs Independent: shopping, housework, finances, food prep, telephone, transportation , medication admin. Review of Systems Review of Systems Constitutional: Reports: chills, weakness. Denies: fever. EENTM: Denies: no symptoms. Cardiovascular: Denies: no symptoms. Respiratory: Denies: no symptoms. GI: Reports: see HPI. Genitourinary: Reports: frequency. Musculoskeletal: Denies: no symptoms. Skin: Denies: no symptoms. Neurological/Psychological: Reports: anxiety. Denies: paresthesia. Hematologic/Endocrine: Reports: polyuria, polydipsia. Denies: bruising, bleeding. Immunologic/Allergic: Denies: no symptoms. All Other Systems: Reviewed and Negative Exam & Diagnostic Data Vital Signs and I&O Vital Signs Date Time Temp Pulse Resp B/P B/P Pulse O2 O2 Flow FiO2 Mean Ox Delivery Rate 10/09 1400 99.7 70 18 120/86 99 Room Air 10/09 0700 158/100 10/09 0623 99.0 64 18 174/104 100 10/08 2156 98.2 58 16 118/80 95 Room Air Intake & Output 10/09 1600 10/09 0400 10/08 1600 10/08 0400 10/07 1600 10/07 0400 Intake Total 3250 2200 3300 3100 Output Total 2800 2000 3650 1650 400 Balance 450 200 -350 1450 -400 Intake, IV 2050 1200 2400 3100 Intake, Oral 1200 1000 900 0 Number 0 0 0 Bowel Movements Output, 600 200 250 400 Emesis Output, Urine 2200 2000 3450 1400 Patient 190 lb 185 lb 185 lb Weight Weight Reported by Patient Reported by Patient Measurement Method Physical Exam General Appearance: well developed/nourished, no apparent distress, alert, comfortable Head: atraumatic, normal appearance Eyes: Bilateral: normal appearance. Ears, Nose, Throat: normal pharynx, normal ENT inspection, hearing grossly normal Neck: normal inspection, supple, full range of motion Respiratory: normal breath sounds, chest non-tender, no respiratory distress Cardiovascular: regular rate/rhythm Gastrointestinal: normal bowel sounds, soft, non-tender, no organomegaly Rectal: deferred Back: normal inspection, normal range of motion Extremities: normal inspection, normal range of motion, no edema Neurologic/Psych: no motor/sensory deficits, awake, alert, oriented x 3 Results Pertinent Lab Results: Laboratory Tests 10/09 10/09 1815 1052 Chemistry Sodium (137 - 145 mmol/L) 131 L Potassium (3.5 - 5.1 mmol/L) 4.4 Chloride (98 - 107 mmol/L) 99 Carbon Dioxide (22 - 30 mmol/L) 23 Anion Gap (5 - 16) 9 BUN (9 - 20 mg/dL) 10 Creatinine (0.7 - 1.2 mg/dL) 0.5 L Estimated GFR (>60 ml/min) > 60 BUN/Creatinine Ratio (7 - 25 %) 20.0 Hematology CBC w Diff NO MAN DIFF REQ MAN DIFF ORDERED WBC (4.8 - 10.8 /CUMM) 8.6 8.6 RBC (4.70 - 6.10 /CUMM) 4.36 L 4.04 L Hgb (14.0 - 18.0 G/DL) 13.0 L 12.4 L Hct (42 - 52 %) 38.9 L 36.1 L MCV (80.0 - 94.0 FL) 89.0 89.4 MCH (27.0 - 31.0 PG) 29.8 30.8 MCHC (33.0 - 37.0 G/DL) 33.5 34.4 RDW (11.5 - 14.5 %) 12.8 13.2 Plt Count (130 - 400 /CUMM) 258 231 MPV (7.4 - 10.4 FL) 9.7 9.8 Gran % (42.2 - 75.2 %) 62.2 85.4 H Lymphocytes % (20.5 - 51.1 %) 31.6 11.2 L Monocytes % (1.7 - 9.3 %) 5.2 3.2 Eosinophils % (0 - 5 %) 0.7 0.1 Basophils % (0.0 - 2.0 %) 0.3 0.1 Absolute Granulocytes (1.4 - 6.5 /CUMM) 5.4 7.3 H Absolute Lymphocytes (1.2 - 3.4 /CUMM) 2.7 1.0 L Absolute Monocytes (0.10 - 0.60 /CUMM) 0.4 0.3 Absolute Eosinophils (0.0 - 0.7 /CUMM) 0.1 0 Absolute Basophils (0.0 - 0.2 /CUMM) 0 0 Platelet Estimate (ADEQUATE) VERIFIED BY SMEAR Normocytic RBCs VERIFIED Normochromic RBCs VERIFIED 10/08 10/08 10/08 10/08 10/07 1835 0945 0607 0128 2045 Chemistry Sodium (137 - 145 mmol/L) 133 L 130 L 134 L 132 L Potassium (3.5 - 5.1 mmol/L) 3.9 4.0 4.0 4.7 Chloride (98 - 107 mmol/L) 104 99 103 101 Carbon Dioxide (22 - 30 mmol/L) 22 16 L 17 L 14 L Anion Gap (5 - 16) 8 14 14 16 BUN (9 - 20 mg/dL) 7 L 12 10 10 Creatinine (0.7 - 1.2 mg/dL) 0.4 L 0.5 L 0.5 L 0.5 L Estimated GFR (>60 ml/min) > 60 > 60 > 60 > 60 BUN/Creatinine Ratio (7 - 25 %) 17.5 24.0 20.0 20.0 Hemoglobin A1c (4.2 - 5.8 %) 12.2 H Phosphorus (2.5 - 4.5 mg/dL) 4.6 H 10/07 10/07 1443 1212 Chemistry Sodium (137 - 145 mmol/L) 136 L Potassium (3.5 - 5.1 mmol/L) 4.2 Chloride (98 - 107 mmol/L) 104 Carbon Dioxide (22 - 30 mmol/L) 21 L Anion Gap (5 - 16) 11 BUN (9 - 20 mg/dL) 11 Creatinine (0.7 - 1.2 mg/dL) 0.5 L Estimated GFR (>60 ml/min) > 60 BUN/Creatinine Ratio (7 - 25 %) 22.0 Glucose (65 - 99 mg/dL) 329 H Calcium (8.4 - 10.2 mg/dL) 9.5 Total Bilirubin (0.2 - 1.3 mg/dL) 0.4 AST (17 - 59 U/L) 22 ALT (21 - 72 U/L) 24 Alkaline Phosphatase (< 127 U/L) 156 H Total Protein (6.3 - 8.2 g/dL) 7.1 Albumin (3.5 - 5.0 g/dL) 4.2 Globulin (1.9 - 4.2 gm/dL) 2.9 Albumin/Globulin Ratio (1.1 - 2.2 %) 1.4 Toxicology Urine Opiates Screen (>2000 NG/ML) < 100 Methadone Screen (>300 NG/ML) 184 Barbiturate Screen (>200 NG/ML) < 60 Ur Phencyclidine Scrn (>25 NG/ML) < 6.00 Amphetamines Screen (>1000 NG/ML) < 100 U Benzodiazepines Scrn (>200 NG/ML) < 85 Urine Cocaine Screen (>300 NG/ML) < 50 Urine Cannabis Screen (>50 NG/ML) > 80.00 H Urines Urine Color (YEL,AMB,STR) STRAW Urine Clarity (CLEAR) CLEAR Urine pH (5.0 - 8.0) 7.0 Ur Specific [place] (1.001 - 1.035) 1.010 Urine Protein (NEG,<30 MG/DL) NEG Urine Ketones (NEG) >=80 Urine Nitrite (NEG) NEG Urine Bilirubin (NEG) NEG Urine Urobilinogen (0.1 - 1.0 EU/dl) 0.2 Ur Leukocyte Esterase (NEG) NEG Ur Microscopic EXAM NOT REQUIRED Urine Hemoglobin (NEG) NEG Urine Glucose (N MG/DL) >=1000 H 08/07 1100 Chemistry Sodium (137 - 145 mmol/L) 134 L Potassium (3.5 - 5.1 mmol/L) 4.6 Chloride (98 - 107 mmol/L) 100 Carbon Dioxide (22 - 30 mmol/L) 17 L Anion Gap (5 - 16) 17 H BUN (9 - 20 mg/dL) 10 Creatinine (0.7 - 1.2 mg/dL) 0.5 L Estimated GFR (>60 ml/min) > 60 BUN/Creatinine Ratio (7 - 25 %) 20.0 Glucose (65 - 99 mg/dL) 513 *H Hemoglobin A1c (4.2 - 5.8 %) 12.2 H Calcium (8.4 - 10.2 mg/dL) 10.4 H Total Bilirubin (0.2 - 1.3 mg/dL) 0.6 AST (17 - 59 U/L) 20 ALT (21 - 72 U/L) 26 Alkaline Phosphatase (< 127 U/L) 174 H Total Protein (6.3 - 8.2 g/dL) 7.4 Albumin (3.5 - 5.0 g/dL) 4.6 Globulin (1.9 - 4.2 gm/dL) 2.8 Albumin/Globulin Ratio (1.1 - 2.2 %) 1.6 Amylase (30 - 110 U/L) 137 H Lipase (23 - 300 U/L) 13 L Hematology CBC w Diff NO MAN DIFF REQ WBC (4.8 - 10.8 /CUMM) 8.0 RBC (4.70 - 6.10 /CUMM) 4.75 Hgb (14.0 - 18.0 G/DL) 14.5 Hct (42 - 52 %) 41.7 L MCV (80.0 - 94.0 FL) 87.8 MCH (27.0 - 31.0 PG) 30.6 MCHC (33.0 - 37.0 G/DL) 34.9 RDW (11.5 - 14.5 %) 12.8 Plt Count (130 - 400 /CUMM) 278 MPV (7.4 - 10.4 FL) 9.7 Gran % (42.2 - 75.2 %) 81.4 H Lymphocytes % (20.5 - 51.1 %) 14.7 L Monocytes % (1.7 - 9.3 %) 3.3 Eosinophils % (0 - 5 %) 0.1 Basophils % (0.0 - 2.0 %) 0.5 Absolute Granulocytes (1.4 - 6.5 /CUMM) 6.5 Absolute Lymphocytes (1.2 - 3.4 /CUMM) 1.2 Absolute Monocytes (0.10 - 0.60 /CUMM) 0.3 Absolute Eosinophils (0.0 - 0.7 /CUMM) 0 Absolute Basophils (0.0 - 0.2 /CUMM) 0 Toxicology Serum Alcohol (<10 MG/DL) < 10.0 Imaging/Other Studies: Endoscopy 11/2016 Findings: The esophagus had normal caliber and contour. In the distal esophagus there were numerous erythematous streaks, with small mucosal breaks, greater than 1 cm. The intervening mucosa was normal. There was no ulceration. There was no nodularity. The GE junction at 43 cm was normal. There was no evident hiatal hernia. The stomach had normal distention, and active antral peristalsis. There was a bezoar occupying fundus to antrum. This obscured some of the mucosa. The cardia was normal. The mucosa and folds of the fundus and body were slightly edematous and mildly erythematous, and the rugae were mildly enlarged. 3 biopsies were obtained from the fundus/body. The incisura and antrum had normal mucosa, and 2 biopsies were obtained here. The pyloric channel was normal. The duodenal bulb was normal. The mucosa and folds of the duodenal sweep were normal. Impression: * Grade A/B esophagitis * Gastric bezoar * Proximal gastropathy A. ANTRUM, STOMACH, MULTIPLE BIOPSIES: MILD CHRONIC ANTRAL GASTRITIS WITH FOVEOLAR CELL HYPERPLASIA. NEGATIVE FOR ACUTE ACTIVITY AND INTESTINAL METAPLASIA. GIEMSA STAIN IS NEGATIVE FOR HELICOBACTER ORGANISMS. B. BODY, STOMACH, MULTIPLE BIOPSIES: MILD CHRONIC FUNDIC GASTRITIS. NEGATIVE FOR ACUTE ACTIVITY AND INTESTINAL METAPLASIA. GIEMSA STAIN IS NEGATIVE FOR HELICOBACTER ORGANISMS. Assessment/Plan Assessment/Recommendations: Assessment: Mr. Mendez is a 27 year old male with type I DM, PSA and gastroparesis and a history of non-compliance with his insulin who is currently admitted with hyperglycemia and a flare of his gastroparesis from which he had been doing well with IV prokinetic agents, but had a bit of a set back this am. His gastroparesis is likely mutlifactorial and a combination of poorly controlled diabetes and narcotics and considering the endoscopic findings this past November GERD may also be contributing. As he apparently may not have been taking his methadone on admission it is also possible that narcotic withdrawal may be contributing to his acute symptoms as well. While he did have some vomiting this morning he currently appears well, has a benign abdominal exam and as he has been tolerating liquids throughout the day so I don't necessarily feel any further diagnostic or therapeutic interventions are necessary at this time, but if his diet is unable to be advanced by the am it may then be reasonable to attempt to 'kickstart' his stomach with a shot of erythromycin. He underwent an EGD this past November which was consistent with gastroparesis with left over food without a mechanical obstruction and also showed reflux esophagitis with negative gastric biopsies. So as he is without any concerning GI warning signs and as this epsiode of vomiting is consistent with his prior flares I don't feel that needs to be repeated at this time. Recommendations: 1. Continue standing order of reglan 10 mg IV q6hrs 2. Strict control of finger sticks with insulin as per endocrinology and primary care team as elevated finger sticks can also lead to delayed gastric emptying even in the absence of nerve damage from DM. 3. Continue zofran and tigan as needed. 4. Continue oral omeprazole at current dose for now. 5. Anti-reflux measures 4. Advance diet as tolerated and if pt continues to vomit would then give one dose of IV erythromycin 150 mg x 1 in an effort to 'kickstart' the stomach. Dr. Valera will resume his GI care in the am. Problem List: 1. Nausea & vomiting 2. DKA, type 1 3. Diabetic gastroparesis Copies To: Nitish DAWSON,Leeann Consult Acknowledgment - Thank you for your consult request.
[2017-10-09 19:12] LABS: ABSOLUTE BASOPHIL COUNT 0 /CUMM (0.0-0.2); ABSOLUTE EOSINOPHIL COUNT 0.1 /CUMM (0.0-0.7); ABSOLUTE GRANULOCYTE CT 5.4 /CUMM (1.4-6.5); ABSOLUTE LYMPH COUNT 2.7 /CUMM (1.2-3.4); ABSOLUTE MONOCYTE COUNT 0.4 /CUMM (0.10-0.60); BASOPHIL % 0.3 % (0.0-2.0); EOSINOPHIL % 0.7 % (0-5); GRANULOCYTE % 62.2 % (42.2-75.2); HEMATOCRIT 38.9 % (42-52); MEAN CORPUSCULAR HGB 29.8 PG (27.0-31.0); MEAN CORPUSCULAR HGB CONC 33.5 G/DL (33.0-37.0); MEAN PLATELET VOLUME 9.7 FL (7.4-10.4); PLATELET COUNT 258 /CUMM (130-400); RBC DISTRIBUTION WIDTH 12.8 % (11.5-14.5); RED BLOOD CELL CT 4.36 /CUMM (4.70-6.10); WHITE BLOOD CELL COUNT 8.6 /CUMM (4.8-10.8)
[2017-10-09 22:20] VITALS: BP 146/74
[2017-10-10 06:41] VITALS: BP 120/90
--- NOTE | 2017-10-10 07:19 | PN- Housestaff ---
Carin Kumari 10/10/17 0718: Subjective Follow-up For: DKA and Gastroparesis Subjective: Patient was seen and examined at bedside. Patient was comfortsbly sleeping when I went to see him. The vomiting is relieved. He had no episodes of vomitinig overnight. He is on a clear liquid diet and has been tolerating it well. Denies fever, chills, nausea, palpaitations, respiratory distress. Review of Systems Constitutional: Reports: see HPI. Objective Last 24 Hrs of Vital Signs/I&O Vital Signs Date Time Temp Pulse Resp B/P B/P Pulse O2 O2 Flow FiO2 Mean Ox Delivery Rate 10/10 0641 97.8 59 18 120/90 97 Room Air 10/09 2220 99.5 68 18 146/74 100 Room Air 10/09 1400 99.7 70 18 120/86 99 Room Air Intake & Output 10/10 0800 10/10 0000 10/09 1600 Intake Total 1040 1000 1550 Output Total 1000 1500 1400 Balance 40 -500 150 Intake, IV 800 800 850 Intake, Oral 240 200 700 Number 0 Bowel Movements Output, 200 Emesis Output, Urine 1000 1500 1200 Physical Exam General Appearance: Alert, Oriented X3, Cooperative, No Acute Distress Skin: No Rashes Skin Temp/Moisture Exam: Warm/Dry Neck: Supple Cardiovascular: Regular Rate, Normal S1, Normal S2 Lungs: Clear to Auscultation, Normal Air Movement Abdomen: Normal Bowel Sounds, Soft, No Tenderness Extremities: No Edema, Normal Pulses Assessment/Plan Assessment: 27-year-old male with past medical history of diabetes mellitus, polysubstance abuse and methadone dependence is admitted for the management of DKA. The patient did better yesterday. He was able to tolerate a clear liquid diet yesterday. No more episodes of vomiting overnight. Vitals are stable. His blood sugar was at a low of 162 in the morning. Problems 1. DKA 2. Metabolic acidosis 3. Nausea and vomiting 5. History of gastroparesis 4. Methadone dependence Plan: 1. DKA -Patient had BLood glucose of 516 on admission. His blood glucose was 162 in the morning today. - Urine was positive for ketones on addmission. -Endocrine consult appreciated. We will continue the patient on D5 @ 100 an hour with 20 mEq of Potassium. We will discontinue the the fluids if the patient is able to get enough cslories from the regular diet. We would continue with Reglan Q6h -We will keep monitoring him for hypokalemia -We will continue the same dose of Levemir and would start the patient on Novolog once he starts eating. -ACCU checks 4 hours for now -GI input appreciated. We would give the patient Erythromycin 150 if he does not improveo or worsen. 2.Metabolic Acidosis -The anion gap has closed for the patient -We will order an ABG if the patient displays signs of respiratory distress 3. Nausea and Vomiting -Zofran 4mg IV Q4 PRN -Tigan as needed -We will advance the diet as tolerated. 4. History of gastroparesis -The patient does have a history of gastroparesis given his DM -We would continuethe patient on iv Metoclopramide -We would consider an EGD and a manometery if his symptoms do not improve -GI input appreciated. Will given the patient one dose of Erythromycin 150 if he does not improve or worsens. 5. Methadone dependence -We would confirm Methadone dose for the patient -We would monitor him for signs of withdrawal 6.Hyponatremia -The patient had a drop in his Na levels since addmission -Endo input appreciated. Will follow up on Thyroid hormone and cortisol results DVT prophylaxis COde status: full code Clear liquid diet, advance diet as tolerated Problem List: 1. ETOH abuse 2. Methadone dependence 3. Nausea & vomiting 4. DKA (diabetic ketoacidoses) 5. Diabetic gastroparesis Pain Ratin Pain Location: na Pain Goal: Remain pain free Pain Plan: na Tomorrow's Labs & Rationales: cbc and bep LidiaEldon godinezhay 10/10/17 1047: Attending MD Review Statement Attending Statement Attending MD Statement: examined this patient, discuss w/resident/PA/BASS GUITAR TEACHER, agreed w/resident/PA/BASS GUITAR TEACHER, discussed with family, reviewed EMR data (avail), discussed with nursing, discussed with case mgmt, reviewed images, amended to note Attending Assessment/Plan: Overall clinical improvement. He is tolerating diet PO breakfast. Trial of coversion of iv to PO meds and if he is able to tolerate meds and food then can be discharged in next 24 hrs. GI and endocrinology follow up as outpatient.
--- NOTE | 2017-10-10 09:11 | PN- Diabetes ---
Assessment/Plan Diabetes Assessment: This 27-year-old male with a known history of type 1 diabetes presents with nausea and vomiting. He did have a mildly elevated anion gap and decreased bicarbonate on admission consistent with early or mild ketoacidosis. GI symptoms have improved. His glucose level has been in the 200s range. Plan: Please stop IV flood once diet is advanced to full liquid Please restrict carb intake to level 1. Please change insulin dose as below. Patient will make appointment with Dr. Talbert once he is discharged. Will follow Inpatient Diabetes Orders Adjustment on Basal Insulin: Increase Levemir to 15 units bid. Before Each Meal: Bolus Insulin: Novolog < 80 mg/dl: 0 80-100 mg/dl: 8 101-120 mg/dl: 8 121-150 mg/dl: 8 151-200 mg/dl: 10 201-250 mg/dl: 12 251-300 mg/dl: 14 301-350 mg/dl: 16 351-400 mg/dl: 18 > 400 mg/dl: 20 Bedtime: Bolus Insulin: Novolog < 80 mg/dl: 0 80-100 mg/dl: 0 101-120 mg/dl: 0 121-150 mg/dl: 0 151-200 mg/dl: 2 201-250 mg/dl: 4 251-300 mg/dl: 6 301-350 mg/dl: 8 351-400 mg/dl: 10 > 400 mg/dl: 12 Subjective Subjective: He did not feel nauseated this morning and believe that he will be able to tolerate solid food. Objective Last 24 Hrs of Vital Signs/I&O Vital Signs Date Time Temp Pulse Resp B/P B/P Pulse O2 O2 Flow FiO2 Mean Ox Delivery Rate 10/10 0641 97.8 59 18 120/90 97 Room Air 10/09 2220 99.5 68 18 146/74 100 Room Air 10/09 1400 99.7 70 18 120/86 99 Room Air Intake & Output 10/10 1600 10 0800 08 0000 Intake Total 1040 1000 Output Total 1000 1500 Balance 40 -500 Intake, IV 800 800 Intake, Oral 240 200 Output, Urine 1000 1500
--- NOTE | 2017-10-10 10:13 | Discharge Summary ---
Visit Information Visit Dates Admission Date: 10/08/17 Discharge Date: 10/12/17 Hospital Course Course Attending Physician: Sandy Murillo MD Primary Care Physician: Leeann Talbert MD Consulting Request: Consulting Specialty: Endocrinology Consulting Physician: Dr. Gucci Cordero Reason for Consult: DkA Hospital Course: Mr. Steve Mendez who has a past medical history of PMH of DM, polysubstance abuse, methadone dependent presented to the ED with intractable nausea, vomiting , abdominal pain. HIs blood glucose on presentation was 513. HIs HCO3 was 17 and he had a slightly elevated anion gap of 17. His vitals in the ED were temp: 98.2, pulse: 85, R, 20, BP: 160/80, pulse ox, 98 %. We admitted him to the [facility] floor for the evaluation and treatment of mild DKA, nausea and vomiting. He was treated for the following problems during his hospital course: 1.DKA -The patient had a blood glucose of 518 in the ED. It stabalised over the duration of his hospital course. His fasting blood glucose on the day of his discahrge was 77. -He was given Novolog 10 units and Levemir 20 units in the ED. His insulin dose was subsequently titrated in the hospital per Endocrine requirement. His insulin dose at the time of discharge was: Before Each Meal: < 80 mg/dl: 0 80-100 mg/dl: 8 101-120 mg/dl: 8 121-150 mg/dl: 8 151-200 mg/dl: 10 201-250 mg/dl: 12 251-300 mg/dl: 14 301-350 mg/dl: 16 351-400 mg/dl: 18 > 400 mg/dl: 20 Bedtime: < 80 mg/dl: 0 80-100 mg/dl: 0 101-120 mg/dl: 0 121-150 mg/dl: 0 151-200 mg/dl: 2 201-250 mg/dl: 4 251-300 mg/dl: 6 301-350 mg/dl: 8 351-400 mg/dl: 10 > 400 mg/dl: 12 -His anion gap had already closed when he was transferred to the [facility] floor an dhe responded well to the treatment. 2. Nausea and Vomiting - The patient had intractable nausea adn vomiting during his hospital stay. -Multiple attempts were made to start him on a regular diet. However, the patient could not tolerate it till one day before discharge. -The patient was on high dose of anti-emetics, including Zofran Q4-6 PRN, Tigan PRN - He was given round the clock Metoclopramide 10mg per GI recommendation - He did not initially respond to the above treatment. He was given one dose of Erythromycin 150mg, after which he started to improve. -His nausea and vomiting were attributed to the worsening of his gastroparesis vs polysubstance withdrawal 3. Methadone withdrawal - The patient was given Methadone 100mg after confirming from his prescribing clinic 4. Hyponatremia -The patient had a slight drop in his Na levels 2 days into the hospital. -We checked his Thyroid and 8 AM Cortisol levels per Endocrine recommendation which came back within normal limits. -The patient's electrolytes were otherwise stable. On discharge, the patient was asymptomatic with his nausea and vomiting for 24 hours. He was tolerating a regular diet and had well controlled blood glucose levels. Allergies: Coded Allergies: dog dander (HIVES 02/25/17) Disposition Summary Disposition Principal Diagnosis: Mild DKA Additional Diagnosis: Gastroparesis Discharge Disposition: home or self care Discharge Instructions General Discharge Information Code Status: Full Code Patient's Diet: Consistent Carbohydrate Diet in the hospital Patient's Activity: As tolerated Follow-Up Instructions/Appts: 1. The patient is to follow with Dr. Talbert in her office within 2-3 days of discharge 2. The patient was counselled about strict diabetic control Medications at Discharge Discharge Medications: Stop taking the following medications: Meloxicam (Mobic) 15 MG TABLET ORAL DAILY as needed for pain Qty = 15 Ibuprofen (Ibuprofen) 600 MG TABLET ORAL EVERY 6 HOURS NEEDED as needed for pain Qty = 50 Methylprednisolone. (Medrol) 4 MG TAB.DS.PK ORAL As Directed Qty = 1 Continue taking these medications: Insulin Lispro (Humalog Kwikpen U-100) (Unknown Strength) INSULN.PEN Unknown Dose SC SEE SLIDING SCALE Qty = 15 Comments: 17UNITS OF NOVOLOG WITH LUNCH Last Taken: 10/12/17 Time: 0600am Insulin Glargine,Hum.rec.anlog (Lantus Solostar) 100 UNIT/ML (3 ML) INSULN.PEN 40 Unit SC DAILY Qty = 15 Comments: NEXT DOSE 6/4/17 BEFORE BED- none given in hospital Cyclobenzaprine HCl (Cyclobenzaprine HCl) 10 MG TABLET 1 Tablet ORAL Every night as needed for muscle strain Qty = 10 Comments: none given in hospital Ondansetron (Zofran Odt) 4 MG TAB.RAPDIS 1 Tablet SUBLINGUAL THREE TIMES DAILY as needed for nausea Qty = 10 Comments: zofran iv given 10/11/17 @0300am Meclizine HCl (Meclizine HCl) 25 MG TABLET 1 Tablet ORAL THREE TIMES A DAY NEEDED as needed for dizziness Qty = 30 Comments: not given in hospital Scopolamine (Scopolamine) 1 MG/3 DAY PATCH.TD.3 1 PATCH On the skin EVERY 72 HOURS (EVERY 3 DAYS) as needed for dizziness Qty = 4 Comments: not given in hospital Tramadol HCl (Ultram) 50 MG TABLET 1-2 Tablet ORAL EVERY 6 HOURS NEEDED as needed for severe pain Qty = 30 Comments: not given in hospital Metoclopramide HCl (Reglan) 10 MG TABLET 1 Tablet ORAL EVERY SIX HOURS as needed for NAUSEA/VOMITING Qty = 10 Instructions: 30 minutes before meals and bedtime Comments: Last Taken: 10/11/17 Time: 0700am given iv Promethazine HCl (Promethazine HCl) 25 MG TABLET 1 Tablet ORAL EVERY SIX HOURS NEEDED as needed for NAUSEA/VOMITING Qty = 12 Comments: not given in hospital Copies To: Leeann Talbert MD
[2017-10-10 14:17] VITALS: BP 156/98
--- NOTE | 2017-10-10 14:20 | Event Note ---
Event Note Event Note: I called Dr. Murillo & was told the pt was stable & will be D/C soon. Therefore, further inpt GI f/u as needed. Please refer to Dr. Fischer's suggestions from his GI consult of 10/09/17.
--- NOTE | 2017-10-10 20:52 | CT SCAN REPORT ---
EXAMINATION: CT ABDOMEN AND PELVIS WITH CONTRAST CLINICAL INFORMATION: Intractable vomiting. COMPARISON: CT abdomen pelvis dated 07/08/2017. TECHNIQUE: Multidetector volumetric imaging was performed of the abdomen and pelvis following IV administration of 95 mL of Optiray 320 intravenous contrast. Sagittal and coronal reformatted images were obtained on the technologist's workstation. DLP: 361.71 mGy-cm FINDINGS: LUNG BASES: The lung bases are clear. There is no pleural effusion. The heart is normal in size. There is no pericardial effusion. LIVER, GALLBLADDER, AND BILIARY TREE: The liver is normal in size, shape, and attenuation. No focal hepatic lesion or biliary ductal dilatation is present. The gallbladder is unremarkable with no evidence of radiopaque gallstones, gallbladder wall thickening, or obvious pericholecystic inflammatory changes. PANCREAS: Unremarkable. SPLEEN: Unremarkable. ADRENAL GLANDS: Unremarkable. KIDNEYS AND URETERS: The kidneys are normal in size, shape, and attenuation. No hydronephrosis, hydroureter, or calculi seen. No perinephric stranding. BLADDER: Unremarkable. GASTROINTESTINAL TRACT: The small and large bowel are unremarkable. The appendix is unremarkable. ABDOMINAL WALL: No significant hernia is appreciated. LYMPH NODES: Normal. VASCULAR: Unremarkable. PELVIC VISCERA: Unremarkable. OSSEOUS STRUCTURES: Unremarkable. IMPRESSION: No evidence of acute abdominal/pelvic pathology.
[2017-10-10 22:46] VITALS: BP 157/99
[2017-10-11 07:06] VITALS: BP 166/96
[2017-10-11 08:50] LABS: ABSOLUTE BASOPHIL COUNT 0 /CUMM (0.0-0.2); ABSOLUTE EOSINOPHIL COUNT 0 /CUMM (0.0-0.7); ABSOLUTE GRANULOCYTE CT 5.5 /CUMM (1.4-6.5); ABSOLUTE LYMPH COUNT 2.8 /CUMM (1.2-3.4); ABSOLUTE MONOCYTE COUNT 0.5 /CUMM (0.10-0.60); BASOPHIL % 0.4 % (0.0-2.0); EOSINOPHIL % 0.5 % (0-5); GRANULOCYTE % 62.2 % (42.2-75.2); MEAN CORPUSCULAR HGB 30.1 PG (27.0-31.0); MEAN CORPUSCULAR HGB CONC 33.5 G/DL (33.0-37.0); MEAN CORPUSCULAR VOLUME 89.7 FL (80.0-94.0); MEAN PLATELET VOLUME 10.3 FL (7.4-10.4); PLATELET COUNT 286 /CUMM (130-400); RBC DISTRIBUTION WIDTH 12.8 % (11.5-14.5); WHITE BLOOD CELL COUNT 8.9 /CUMM (4.8-10.8)
--- NOTE | 2017-10-11 09:17 | PN- Housestaff ---
See Addendum Subjective Follow-up For: DKA and gastroparesis Subjective: Patient was seen and examined at bedside. He seems to be doing much better now. He says he has been able to keep fluids down and wants to try a regular diet. He reporst and improvement in his nausea and vomiting. Parents were concerned about the CT scan. I reassured them and presented our plan of care for the patient to them. The patient denies fefver, chiils, diarrhea, constipation, palpitations or respiratory distress. Review of Systems Constitutional: Reports: see HPI. Objective Last 24 Hrs of Vital Signs/I&O Vital Signs Date Time Temp Pulse Resp B/P B/P Pulse O2 O2 Flow FiO2 Mean Ox Delivery Rate 10/11 0706 97.8 71 20 166/96 100 Room Air 10/10 2246 98.4 62 20 157/99 100 Room Air 10/10 1417 98.7 67 16 156/98 98 Room Air Intake & Output 10/11 1600 10/11 0800 10/11 0000 Intake Total 3000 Output Total 4350 1000 Balance -1350 -1000 Intake, IV 1000 Intake, Oral 2000 Output, 1000 Emesis Output, Urine 3350 1000 Patient 190 lb Weight Physical Exam General Appearance: Alert, Oriented X3, Cooperative, No Acute Distress Neck: Supple Cardiovascular: Regular Rate, Normal S1, Normal S2 Lungs: Clear to Auscultation Assessment/Plan Assessment: 27-year-old male with past medical history of diabetes mellitus, polysubstance abuse and methadone dependence is admitted for the management of DKA. The patient did better yesterday. He was able to tolerate a clear liquid diet yesterday. No more episodes of vomiting overnight. Vitals are stable. His blood sugar was up at 332 this morning. Problems 1. DKA 2. Metabolic acidosis 3. Nausea and vomiting 5. History of gastroparesis 4. Methadone dependence Plan: 1. DKA -Patient had Blood glucose of 516 on admission. His blood glucose was 332 in the morning today. - Urine was positive for ketones on addmission. -Endocrine consult appreciated. We will continue the patient on D5 @ 100 an hour with 20 mEq of Potassium. We will discontinue the the fluids if the patient is able to get enough cslories from the regular diet. We would continue with Reglan Q6h -We will keep monitoring him for hypokalemia -Endocrnine consult appreciated. Will follow up on the recommendations and change his insulin dose. -ACCU checks 4 hours for now -GI input appreciated. We would give the patient Erythromycin 150 if he does not improve or worsen. 2.Metabolic Acidosis -The anion gap has closed for the patient -We will order an ABG if the patient displays signs of respiratory distress 3. Nausea and Vomiting -Zofran 4mg IV Q4 PRN -Tigan as needed -We will advance the diet as tolerated. 4. History of gastroparesis -The patient does have a history of gastroparesis given his DM -We would continuethe patient on iv Metoclopramide -We would consider an EGD and a manometery if his symptoms do not improve -GI input appreciated. Will given the patient one dose of Erythromycin 150 if he does not improve or worsens. 5. Methadone dependence -We would confirm Methadone dose for the patient -We would monitor him for signs of withdrawal 6.Hyponatremia -The patient had a drop in his Na levels since addmission -Endo input appreciated. Will follow up on Thyroid hormone and cortisol results DVT prophylaxis COde status: full code CC1 diet, advance diet as tolerated Problem List: 1. Hyponatremia 2. Methadone dependence 3. Nausea & vomiting 4. DKA (diabetic ketoacidoses) 5. Diabetic gastroparesis Pain Ratin Pain Location: na Pain Goal: Remain pain free Pain Plan: na Tomorrow's Labs & Rationales: cbc and bep
--- NOTE | 2017-10-11 10:56 | PN- Diabetes ---
Assessment/Plan Diabetes Assessment: This 27-year-old male with a known history of type 1 diabetes presents with nausea and vomiting. He did have a mildly elevated anion gap and decreased bicarbonate on admission consistent with early or mild ketoacidosis. GI symptoms have improved. His glucose level has been in the 200s range. AM cortisol is 14. Plan: Will increase Levemir to 15 units bid (order changed). Continue same Novolog scale now. Once he is able to tolerate full liquid: Please stop IV fluid Please restrict carb intake to level 1. Please check BG achs, and give meal time and bedtime Novolog according to the following scale. Patient will make appointment with Dr. Talbert once he is discharged. Will follow Inpatient Diabetes Orders Before Each Meal: < 80 mg/dl: 0 80-100 mg/dl: 8 101-120 mg/dl: 8 121-150 mg/dl: 8 151-200 mg/dl: 10 201-250 mg/dl: 12 251-300 mg/dl: 14 301-350 mg/dl: 16 351-400 mg/dl: 18 > 400 mg/dl: 20 Bedtime: < 80 mg/dl: 0 80-100 mg/dl: 0 101-120 mg/dl: 0 121-150 mg/dl: 0 151-200 mg/dl: 2 201-250 mg/dl: 4 251-300 mg/dl: 6 301-350 mg/dl: 8 351-400 mg/dl: 10 > 400 mg/dl: 12 Subjective Subjective: He tried solid food yesterday and was not able to tolerate. Switched back to clear liquid again. Objective Last 24 Hrs of Vital Signs/I&O Vital Signs Date Time Temp Pulse Resp B/P B/P Pulse O2 O2 Flow FiO2 Mean Ox Delivery Rate 10/11 705 97.8 71 20 166/96 100 Room Air 10/10 2246 98.4 62 20 157/99 100 Room Air 10/10 1417 98.7 67 16 156/98 98 Room Air Intake & Output 10/11 1600 10/11 0800 10/11 0000 Intake Total 3000 Output Total 4350 1000 Balance -1350 -1000 Intake, IV 1000 Intake, Oral 2000 Output, 1000 Emesis Output, Urine 3350 1000 Patient 190 lb Weight
[2017-10-11 14:23] VITALS: BP 128/74
[2017-10-11 21:08] VITALS: BP 126/70
[2017-10-12 06:23] VITALS: BP 132/90
--- NOTE | 2017-10-12 08:55 | PN- Housestaff ---
Paul Kumarii 10/12/17 0855: Subjective Follow-up For: DKA and gastroparesis Subjective: Patient was seen and examined at bedside. He was sitting up, walking about and appears to be doing much better. He had no complaints. He has not had any episodes of vomiting in the last 24 hours. Review of Systems Constitutional: Reports: see HPI. Objective Last 24 Hrs of Vital Signs/I&O Vital Signs Date Time Temp Pulse Resp B/P B/P Pulse O2 O2 Flow FiO2 Mean Ox Delivery Rate 10/12 0623 97.9 62 20 132/90 95 10/11 2108 97.9 79 18 126/70 100 Room Air 10/11 1423 98.1 67 18 128/74 99 Intake & Output 10/12 1600 10/12 0800 10/12 0000 Intake Total 240 740 Output Total Balance 240 740 Intake, IV 500 Intake, Oral 240 240 Physical Exam General Appearance: Alert, Oriented X3, Cooperative, No Acute Distress Skin: No Rashes Neck: Supple Cardiovascular: Regular Rate, Normal S1, Normal S2 Lungs: Clear to Auscultation Abdomen: Normal Bowel Sounds, Soft, No Hepatospenomegaly Assessment/Plan Assessment: 27-year-old male with past medical history of diabetes mellitus, polysubstance abuse and methadone dependence is admitted for the management of DKA. The patient did better yesterday. He was able to tolerate a clear liquid diet yesterday. No more episodes of vomiting overnight. Vitals are stable. His blood sugar was up at 332 this morning. Problems 1. DKA 2. Metabolic acidosis 3. Nausea and vomiting 5. History of gastroparesis 4. Methadone dependence Plan: 1. DKA -Patient had Blood glucose of 516 on admission. His blood glucose was 77 in the morning today. - Urine was positive for ketones on addmission. -Endocrine consult appreciated. The patient will follow up with as an outpatient. -The patient will be discharged home today. 2.Metabolic Acidosis -The anion gap has closed for the patient -The patient did not show signs of respiratory distress during his stay in the hospital 3. Nausea and Vomiting -Zofran 4mg IV Q4 PRN -Tigan as needed -Patient is tolerating a regular diet 4. History of gastroparesis -The patient does have a history of gastroparesis given his DM -We would continuethe patient on iv Metoclopramide -Patient will follow up with outpatient 5. Methadone dependence -We would confirm Methadone dose for the patient -We would monitor him for signs of withdrawal 6.Hyponatremia -The patient had a drop in his Na levels since addmission -Endo input appreciated. Will follow up on Thyroid hormone and cortisol results DVT prophylaxis COde status: full code CC1 diet, advance diet as tolerated Problem List: 1. Methadone dependence 2. Nausea & vomiting 3. DKA (diabetic ketoacidoses) 4. Diabetic gastroparesis Pain Ratin Pain Location: na Pain Goal: Remain pain free Pain Plan: na Tomorrow's Labs & Rationales: david Block MD,Amir 10/12/17 1349: Attending MD Review Statement Attending Statement Attending MD Statement: examined this patient, discuss w/resident/PA/ELDER COUNSELOR, agreed w/resident/PA/ELDER COUNSELOR, reviewed EMR data (avail), discussed with nursing Attending Assessment/Plan: Pt was seen and evaluted. No oernsight issues. --beign d/c home today --f/u aas outpt
--- NOTE | 2017-10-12 09:01 | Patient Discharge Instructions ---
Discharge Instructions General Discharge Information You were seen/treated for: DKA Intractable vomiting Special Instructions: Please follow up with your primary care within 1 week of discharge Please make an appt to see your staffing coordinator (Dr Talbert) within 2-3 days after discharge Please seek medical attention if your vomiting worsens and you are not able to drink any fluids Acute Coronary Syndrome Inclusion Criteria At DC or during hospital stay patient has or had the following: ACS DIAGNOSIS No Discharge Core Measures Meds if any: Prescribed or Continued at Discharge Meds if any: NOT Prescribed or Continued at Discharge Congestive Heart Failure Inclusion Criteria At DC or during hospital stay patient has or had the following: CHF DIAGNOSIS No Discharge Core Measures Meds if any: Prescribed or Continued at Discharge Meds if any: NOT Prescribed or Continued at Discharge Cerebrovascular accident Inclusion Criteria At DC or during hospital stay patient has or had the following: CVA/TIA Diagnosis No Discharge Core Measures Meds if any: Prescribed or Continued at Discharge Meds if any: NOT Prescribed or Continued at Discharge Venous thromboembolism Inclusion Criteria VTE Diagnosis No VTE Type NONE VTE Confirmed by (Test) NONE Discharge Core Measures - Per Current guidelines, there needs to be overlap - treatment for the first 5 days of Warfarin therapy. - If discharged on Warfarin prior to 5 days of - overlap therapy, the patient will need to be - assessed for post discharge needs including - *Post discharge parental anticoagulation - *Warfarin and/or parental anticoagulation education - *Follow up date to check INR post discharge Meds if any: Prescribed or Continued at Discharge Note: Overlap Therapy is Warfarin and Anticoagulant Meds if any: NOT Prescribed or Continued at Discharge
--- NOTE | 2017-10-12 11:27 | PN- Diabetes ---
Assessment/Plan Diabetes Assessment: The primary team planned to discharge him today. His blood glucose has been better controlled, despite some fluctuation. Plan: I asked him to call our office to make a follow up appointment within 2 weeks. I asked him to continue to check BG ACHS. Continue to use Lantus 15 units bid, Novolog 8 units before each meal plus sliding scale Novolog 2:50>150 at home. Patient understood. Subjective Subjective: Patient has been feeling well for the past 24 hours, he has been able to tolerate solid food. Objective Last 24 Hrs of Vital Signs/I&O Vital Signs Date Time Temp Pulse Resp B/P B/P Pulse O2 O2 Flow FiO2 Mean Ox Delivery Rate 10/12 0623 97.9 62 20 132/90 95 10/11 2108 97.9 79 18 126/70 100 Room Air 10/11 1423 98.1 67 18 128/74 99 Intake & Output 10/12 1600 10/12 0800 10/12 0000 Intake Total 240 740 Output Total Balance 240 740 Intake, IV 500 Intake, Oral 240 240
== END 2017-10-12 13:50 | DRG 420 ==
LOC: ERH 10:26 → ERHI 17:54 → 2NB 17:54 → ENRESERV 19:08 → ENTRNSPT 20:37 → EDTRNSPT 20:48 → EDTRNSPTSTS 20:48 → EDTRNSPT 20:50 → 2NB 21:02 → CMPTRNSPT 21:11 → 2NB 10-08 08:27 → ENPENDDIS 10-12 11:35 → 2NB 10-12 13:50
PROVIDERS: Hospitalist; Student in an Organized Health Care Education/Training Program
DX: E10.10 Type 1 diabetes mellitus with ketoacidosis without coma (principal); K31.84 Gastroparesis; E10.43 Type 1 diabetes mellitus with diabetic autonomic (poly)neuropathy; E87.1 Hypo-osmolality and hyponatremia; F41.9 Anxiety disorder, unspecified; F32.9 Major depressive disorder, single episode, unspecified; E86.0 Dehydration; F11.23 Opioid dependence with withdrawal; F12.10 Cannabis abuse, uncomplicated; Z91.048 Other nonmedicinal substance allergy status; F17.200 Nicotine dependence, unspecified, uncomplicated; Z79.4 Long term (current) use of insulin; Z91.14 Patient's other noncompliance with medication regimen
CPT/HCPCS: 2NBP; 36592; 74177; 80307; 81003; 82436; 93005; 93010; 96360; 96361; 96374; 96375; 96376; 99291; G0480; J1644; J1815; J2405; J2765; J3250; J7042; J7060